=== PATIENT | female | born 1945 | race Two or more races ===

== ENCOUNTER 2024-10-20 17:36 | Emergency (ER) | payer OTHER, MEDICAID, SELFPAY ==
[2024-10-20 17:47] VITALS: BP 117/76; PULSE 91; RESP 19; TEMP 37.7; O2SAT 97; BMI 23.6
--- NOTE | 2024-10-20 17:49 | XR_ITS ---
Examination: PA lateral chest 2 views TECHNIQUE: Upright PA and lateral chest 2 views Exam date and time: October 20, 2024 at 1812 hours INDICATIONS: Coughing and fever beginning one week ago. FINDINGS: Normal heart size. Accentuation bronchovascular markings. No lobar pneumonia. No pulmonary edema. IMPRESSION: Bronchitis pattern
--- NOTE | 2024-10-20 17:50 | EDRME_ITS ---
Rapid Medical Screening Exam [facility] Arrival date/time: 10/20/24 17:36 78-year-old female with no known medical history presents to the emergency room with a chief complaint of cough, congestion, coughing up phlegm, sore throat, intermittent fevers x 1 day. I have greeted and performed a focused initial assessment of this patient. A comprehensive ED assessment and evaluation of the patient, analysis of all test results, and completion of the medical decision making process will be conducted by additional ED providers. Chief Complaint: Headache Vital signs: Vital Signs Temperature 99.8 F 10/20/24 17:47 Pulse Rate 91 10/20/24 17:47 Respiratory Rate 19 10/20/24 17:47 Blood Pressure 117/76 10/20/24 17:47 Pulse Oximetry (%) 97 10/20/24 17:47 Oxygen Delivery Method Room Air 10/20/24 17:47 Vital signs reviewed by provider: Yes
[2024-10-20 19:18] LABS: Strep A Rapid Negative (Negative)
[2024-10-20 20:59] VITALS: BP 124/68; PULSE 88; RESP 14; TEMP 37.7; O2SAT 97
--- NOTE | 2024-10-20 22:43 | PD.EDHA ---
ED Headache RME/HPI General Chief Complaint: Headache Stated Complaint: Ear pain, sore throat, weak, tired, STEWARD Time Seen by Provider: 10/20/24 21:20 Arrival date/time: 10/20/24 17:36 RME / HPI RME / HPI Narrative: 78-year-old female with no known medical history presents to the emergency room with a chief complaint of cough, congestion, coughing up phlegm, sore throat, intermittent fevers x 1 day. Denies any other complaints. No medication was taken prior to arrival. Related Data Home Medications ?Medication ?Instructions ?Recorded ?Confirmed gabapentin 100 mg capsule 100 mg PO BID #0 caps 01/05/15 12/04/21 ezetimibe 10 mg tablet (Zetia) 10 mg PO DAILY 12/21/18 12/04/21 loratadine 10 mg tablet 10 mg PO QAM 12/21/18 12/04/21 alendronate 35 mg tablet 35 mg PO QWEEK 01/28/21 12/04/21 clopidogrel 75 mg tablet 75 mg PO QDAY 01/28/21 12/04/21 docusate sodium 250 mg capsule 250 mg PO BID 01/28/21 12/04/21 duloxetine 20 mg capsule,delayed 20 mg PO QDAY 01/28/21 12/04/21 release fluticasone propionate 50 2 spray intranasal QAM 01/28/21 12/04/21 mcg/actuation nasal spray,suspension baclofen 10 mg tablet 10 mg PO HS 06/24/21 12/04/21 duloxetine 20 mg capsule,delayed 20 mg PO QDAY 12/04/21 12/04/21 release hydroxyzine HCl 10 mg tablet 10 mg PO Q8H 12/04/21 12/04/21 lidocaine 5 % topical patch 1 patch topical QDAY 12/04/21 12/04/21 linaclotide 145 mcg capsule 145 mcg PO QDAY 12/04/21 12/04/21 (Linzess) triamcinolone acetonide 0.1 % 1 applic topical BID 12/04/21 12/04/21 topical cream Previous Rx's ?Medication ?Instructions ?Recorded ciprofloxacin HCl 500 mg tablet 500 mg PO BID #20 tabs 12/10/21 furosemide 20 mg tablet (Lasix) 20 mg PO Q OTHER DAY #7 tabs 02/13/22 potassium chloride 20 mEq oral 20 meq PO QDAY #14 ea 02/13/22 packet ondansetron 4 mg disintegrating 4 mg PO TID PRN nausea and 04/10/22 tablet vomiting #14 tabs lactulose 10 gram/15 mL (15 mL) 10 g (15 mL) PO QDAY PRN 10/09/22 oral solution constipation #600 mL sulfamethoxazole 800 1 tab PO Q12H #10 tabs 10/31/22 mg-trimethoprim 160 mg tablet (Bactrim DS) azithromycin 500 mg tablet See Rx Instructions PO .COMPLEX #3 06/15/23 tabs famotidine 20 mg tablet (Pepcid) 20 mg PO BID #30 tabs 07/03/23 cefuroxime axetil 500 mg tablet 500 mg PO BID #14 tabs 12/22/23 acetaminophen 500 mg tablet 500 mg PO Q6H PRN pain #30 tabs 04/18/24 (Tylenol Extra Strength) famotidine 20 mg tablet (Pepcid) 20 mg PO QDAY #30 tabs 04/18/24 polyethylene glycol 3350 17 4 g PO QDAY #238 grams 04/18/24 gram/dose oral powder (GentleLax) ibuprofen 600 mg tablet 600 mg PO Q8H PRN fever or pain 10/20/24 #30 tabs nirmatrelvir 150 mg-ritonavir 100 See Rx Instructions PO .COMPLEX 10/20/24 mg tablets in a dose pack #20 tabs (Paxlovid) Allergies Allergy/AdvReac Type Severity Reaction Status Date / Time ampicillin Allergy Severe Diarrhea Verified 04/17/24 20:33 codeine Allergy Severe Abdominal Verified 04/17/24 20:33 Pain morphine Allergy Severe ER GIVEN Verified 04/17/24 20:33 09/11/08 22:45 -NO PROB. CONT MONITOR diazepam AdvReac Severe Vomiting Verified 04/17/24 20:33 hydrocodone AdvReac Severe ANXIETY Verified 04/17/24 20:33 MILK PRODUCTS Allergy Unknown Uncoded 04/17/24 20:33 Review of Systems Review of Systems Narrative Review of Systems: Review of system reviewed and within normal limits except mentioned in HPI ED Exam Narrative Physical exam: VITAL SIGNS: Reviewed. GENERAL APPEARANCE: Alert and interactive, follows commands, no acute distress, HEAD AND FACE: Non-traumatic. ENT: PERRL, pink conjunctivitis, eyelid no trauma, Mucous membrane moist. NECK: Supple, nontender, no nuchal rigidity. CHEST: No tenderness, no crepitus, no paradoxical movement, no retractions. LUNGS: Clear, well ventilated, symmetric, no rales, no wheezing, no ronchi, no stridor, good breath sounds bilaterally. HEART: Regular rate, regular rhythm, no murmur, no gallops. ABDOMEN: Soft, positive bowel sounds, nondistended, no guarding, nontender, no rebound, no masses, RECTAL: Deferred. GENITAL: Deferred. NEUROLOGICAL: Gross motor function intact sensory function intact, Appropriate for age. MUSCULOSKELETAL: low back nontender, full range of motion. EXTREMITIES: Nontender, full range of motion. SKIN: Color pink, dry, no rash, no lacerations, no abrasions, no contusions. LYMPHATICS: Deferred. Course Quality Measures none Orders Category Date Time Status Bedside COVID-19 Antigen Test NOW Care 10/20/24 17:49 Active Bedside Influenza A&B Antigen Test NOW Care 10/20/24 17:49 Completed XR chest 2V Stat Exams 10/20/24 17:49 Completed Strep A Rapid Stat Lab 10/20/24 18:00 Completed Vital Signs Vital signs: Vital Signs Temperature 99.8 F 10/20/24 17:47 Pulse Rate 91 10/20/24 17:47 Respiratory Rate 19 10/20/24 17:47 Blood Pressure 117/76 10/20/24 17:47 Pulse Oximetry (%) 97 10/20/24 17:47 Oxygen Delivery Method Room Air 10/20/24 17:47 Headache MDM Narrative MDM Narrative:: 78-year-old female with no known medical history presents to the emergency room with a chief complaint of cough, congestion, coughing up phlegm, sore throat, intermittent fevers x 1 day. Denies any other complaints. No medication was taken prior to arrival. Patient tested positive for COVID-19. Chest x-ray came back unremarkable except for bronchitis pattern. No pneumonia. The rest of the labs unremarkable. Results discussed with the patient. Patient data External records reviewed:: None Clinical information provided by:: patient Social determinants that could affect healthcare access:: none Patient has the following chronic illnesses:: None How is presenting disease/condition affected by chronic disease/condition?: exacerbated by Evaluation data The following diagnostics were reviewed and interpreted by me:: lab results Lab and/or radiology exams considered but not ordered:: None Interpretation Summary: None Medications / Prescriptions Medications or Prescriptions considered but not ordered:: None Medication administrations:: none Consultations Consultation(s) initiated? (list below): No Diagnosis Differential diagnosis headache: other (COVID-19, influenza) Most likely diagnosis given after review of the tests above:: COVID-19 Admission Indicated Admission indicated?: not indicated Admission Request Was there a request for admission?: No Disposition Plan Disposition Plan: Discharge Discharge Attestation Discharge Attestation: The patient was given an opportunity to ask questions and understood the discharge instructions. Discharge instructions specifically effects, indications for sooner follow up or return to the emergency department, and the expected course of current diagnosis. Patient condition: Stable Discharge Plan Plan Patient Disposition: HOME (Self Care) Disposition Comment: Stable Prescriptions/Referrals Prescriptions/Med Rec: New Paxlovid 150-100 mg tablets,dose pack See Rx Instructions .ROUTE .COMPLEX Qty: 20 0RF Rx Instructions: take ONE 150 mg tablet of nirmatrelvir with ONE 100 mg tablet of ritonavir twice daily for 5 days ibuprofen 600 mg tablet 600 mg PO Q8H PRN (Reason: fever or pain) Qty: 30 0RF No Action gabapentin 100 MG capsule 100 mg PO BID Qty: 0 clopidogrel 75 mg Tablet 75 mg PO QDAY duloxetine 20 mg Capsule,Delayed Release(Dr/Ec) 20 mg PO QDAY docusate sodium 250 mg Capsule 250 mg PO BID alendronate 35 mg tablet 35 mg PO QWEEK Patient Comments: TAKE 1 TABLET BY MOUTH ONCE A WEEK IN THE MORNING AT LEAST 30MIN BEFORE FIRST MEAL,DRINK OR MED Rx Instructions: wednesday fluticasone propionate 50 mcg/actuation spray,suspension 2 spray INTRANASAL QAM Patient Comments: SPRAY 2 SPRAYS INTO EACH NOSTRIL EVERY DAY triamcinolone acetonide 0.1 % cream 1 applic TOPICAL BID lidocaine 5 % adhesive patch,medicated 1 patch TOPICAL QDAY Patient Comments: APPLY 1 PATCH BY TOPICAL ROUTE ONCE DAILY (MAY WEAR UP TO 12HOURS.) hydroxyzine HCl 10 mg tablet 10 mg PO Q8H Patient Comments: TAKE 1 TABLET BY MOUTH EVERY 8 HOURS NEEDED FOR ITCHING duloxetine 20 mg capsule,delayed release(DR/EC) 20 mg PO QDAY Linzess 145 mcg capsule 145 mcg PO QDAY furosemide [Lasix] 20 mg tablet 20 mg PO Q OTHER DAY Qty: 7 0RF potassium chloride 20 mEq packet 20 meq PO QDAY Qty: 14 0RF ondansetron 4 mg tablet,disintegrating 4 mg PO TID PRN (Reason: nausea and vomiting) Qty: 14 0RF loratadine 10 mg Tablet 10 mg PO QAM ezetimibe [Zetia] 10 mg Tablet 10 mg PO DAILY baclofen 10 mg tablet 10 mg PO HS Patient Comments: TAKE 1 TABLET BY MOUTH EVERY DAY AT BEDTIME NEEDED FOR MUSCLE SPASMS ciprofloxacin HCl 500 mg tablet 500 mg PO BID Qty: 20 0RF lactulose 10 gram/15 mL (15 mL) solution 10 g PO QDAY PRN (Reason: constipation) Qty: 600 0RF azithromycin 500 mg tablet See Rx Instructions .ROUTE .COMPLEX Qty: 3 0RF Rx Instructions: For 500 mg dose pack: take 500 mg once daily for 3 days famotidine [Pepcid] 20 mg tablet 20 mg PO BID Qty: 30 0RF cefuroxime axetil 500 mg tablet 500 mg PO BID Qty: 14 0RF sulfamethoxazole-trimethoprim [Bactrim DS] 800-160 mg tablet 1 tab PO Q12H Qty: 10 0RF polyethylene glycol 3350 [GentleLax] 17 gram/dose powder 4 g PO QDAY Qty: 238 0RF famotidine [Pepcid] 20 mg tablet 20 mg PO QDAY Qty: 30 0RF acetaminophen [Tylenol Extra Strength] 500 mg tablet 500 mg PO Q6H PRN (Reason: pain) Qty: 30 0RF Referrals: Bong Batista MD [Primary Care Provider] - In 1 week Problem List Clinical Impression: COVID-19 Patient/Caregiver Discharge Instructions Discharge Activity: activity as tolerated Education Materials: 2019-nCoV Additional Instructions: Thank you for the opportunity for serving you today. You are stable for discharged . You are advised to: Follow-up with your PCP in 1 to 2 days Return to ED for worsening of symptoms Increase oral fluids Take medication as prescribed Print Language: Lao Stand Alone Forms: [employer] Award Info., Patient Portal Info Letter PA/BENEFITS PROCESSOR Supervising Physician DAJUAN/CARMEL Supervising Physician: MD Cornelius
== END 2024-10-20 22:56 | disposition home or self-care (01) ==
PROVIDERS: Nurse Practitioner Family; Emergency Provider Emergency Medicine; PCP Family Medicine
DX: U07.1 COVID-19 (principal)
CPT/HCPCS: 71046; 87400; 87651; 87811; 99283

== ENCOUNTER → 2024-10-20 | Outpatient (CLI) | payer OTHER, MEDICAID, SELFPAY ==
--- NOTE | 2024-10-20 08:30 | XR_ITS ---
Examination: Diagnostic digital mammography, bilateral Computer aided detection 3-D breast Tomosynthesis, bilateral Date and time of exam: October 20, 2024 0811 hours Compared to mammograms dating to September 28, 2018 INDICATIONS: History inconclusive mammogram Technique: Nonmagnified MLO, CC views of the breasts to been obtained, reconstructed from 3-D Tomosynthesis images. R2 computer aided detection program utilized for evaluation of suspicious masses and/or abnormal calcifications. 3-D Tomosynthesis images obtained. Findings: Scattered areas of fibroglandular density Benign calcifications No interval suspicious masses Impression: BI-RADS Category 2: Benign findings Recommend yearly follow-up mammography.
== END | disposition home or self-care (01) ==
LOC: CDIM 07:58
PROVIDERS: PCP Family Medicine; Referring Provider Family Medicine; Visit Provider Family Medicine
DX: R92.323 Mammographic fibroglandular density, bilateral breasts (principal); R92.1 Mammographic calcification found on diagnostic imaging of breast
CPT/HCPCS: 77062; 77066; G0279

== ENCOUNTER 2024-10-22 13:25 | Emergency (ER) | payer OTHER, MEDICAID, SELFPAY ==
[2024-10-22 13:37] VITALS: BP 108/61; PULSE 77; RESP 18; TEMP 36.7; O2SAT 97
[2024-10-22 13:52] VITALS: PULSE 77; RESP 17; O2SAT 97; BMI 24.2
[2024-10-22 14:05] VITALS: BP 118/62; PULSE 75; RESP 20; TEMP 37.1; O2SAT 98
--- NOTE | 2024-10-22 14:08 | XR_ITS ---
Examination:Right hip AP, lateral, AP pelvis 3 views Technique: Hip AP lateral, AP pelvis, 3 views Exam date and time:October 22, 2024 at 1443 hours INDICATIONS: Injury to the right hip today. Right hip pain. FINDINGS: No right hip fracture or dislocation Left hip bones of the pelvis intact IMPRESSION: No hip or pelvic fracture. If pain persists, recommend repeat AP pelvis in 1 day.
--- NOTE | 2024-10-22 14:08 | XR_ITS ---
Examination: Right femur 2 views TECHNIQUE: AP lateral right femur 2 views Examination time: October 22, 2024 at 1443 hours INDICATIONS: Injury to the femur today, femur pain. FINDINGS: No hip fracture or hip dislocation Shaft of the femur are intact IMPRESSION: No acute femur fracture
--- NOTE | 2024-10-22 14:08 | XR_ITS ---
Examination: Hand, right 3 views Technique: Hand AP, oblique, lateral 3 views Date and time of exam: October 22, 2024 at 1443 hours INDICATIONS: Injury to the hand yesterday with hand pain. FINDINGS: Significant osteopenia. No acute fracture. No dislocation. No foreign body. IMPRESSION: No acute fracture.
--- NOTE | 2024-10-22 17:13 | PD.EDFALL ---
ED Fall Injury RME/HPI General Chief Complaint: Fall Stated Complaint: FALL Time Seen by Provider: 10/22/24 13:56 Arrival date/time: 10/22/24 13:25 78-year-old female presents to the emergency department today with complaints of injury to the right upper arm, right hip right upper leg pain and right hand pain patient states she was walking the dog and tripped and fell patient reports no headache or dizziness no chest pain or shortness of breath no dizziness prior after the fall patient reports no head or neck injury Limitations: no limitations Related Data Home Medications ?Medication ?Instructions ?Recorded ?Confirmed gabapentin 100 mg capsule 100 mg PO BID #0 caps 01/05/15 12/04/21 ezetimibe 10 mg tablet (Zetia) 10 mg PO DAILY 12/21/18 12/04/21 loratadine 10 mg tablet 10 mg PO QAM 12/21/18 12/04/21 alendronate 35 mg tablet 35 mg PO QWEEK 01/28/21 12/04/21 clopidogrel 75 mg tablet 75 mg PO QDAY 01/28/21 12/04/21 docusate sodium 250 mg capsule 250 mg PO BID 01/28/21 12/04/21 duloxetine 20 mg capsule,delayed 20 mg PO QDAY 01/28/21 12/04/21 release fluticasone propionate 50 2 spray intranasal QAM 01/28/21 12/04/21 mcg/actuation nasal spray,suspension baclofen 10 mg tablet 10 mg PO HS 06/24/21 12/04/21 duloxetine 20 mg capsule,delayed 20 mg PO QDAY 12/04/21 12/04/21 release hydroxyzine HCl 10 mg tablet 10 mg PO Q8H 12/04/21 12/04/21 lidocaine 5 % topical patch 1 patch topical QDAY 12/04/21 12/04/21 linaclotide 145 mcg capsule 145 mcg PO QDAY 12/04/21 12/04/21 (Linzess) triamcinolone acetonide 0.1 % 1 applic topical BID 12/04/21 12/04/21 topical cream Previous Rx's ?Medication ?Instructions ?Recorded ciprofloxacin HCl 500 mg tablet 500 mg PO BID #20 tabs 12/10/21 furosemide 20 mg tablet (Lasix) 20 mg PO Q OTHER DAY #7 tabs 02/13/22 potassium chloride 20 mEq oral 20 meq PO QDAY #14 ea 02/13/22 packet ondansetron 4 mg disintegrating 4 mg PO TID PRN nausea and 04/10/22 tablet vomiting #14 tabs lactulose 10 gram/15 mL (15 mL) 10 g (15 mL) PO QDAY PRN 10/09/22 oral solution constipation #600 mL sulfamethoxazole 800 1 tab PO Q12H #10 tabs 10/31/22 mg-trimethoprim 160 mg tablet (Bactrim DS) azithromycin 500 mg tablet See Rx Instructions PO .COMPLEX #3 06/15/23 tabs famotidine 20 mg tablet (Pepcid) 20 mg PO BID #30 tabs 07/03/23 cefuroxime axetil 500 mg tablet 500 mg PO BID #14 tabs 12/22/23 acetaminophen 500 mg tablet 500 mg PO Q6H PRN pain #30 tabs 04/18/24 (Tylenol Extra Strength) famotidine 20 mg tablet (Pepcid) 20 mg PO QDAY #30 tabs 04/18/24 polyethylene glycol 3350 17 4 g PO QDAY #238 grams 04/18/24 gram/dose oral powder (GentleLax) ibuprofen 600 mg tablet 600 mg PO Q8H PRN fever or pain 10/20/24 #30 tabs nirmatrelvir 150 mg-ritonavir 100 See Rx Instructions PO .COMPLEX 10/20/24 mg tablets in a dose pack #20 tabs (Paxlovid) Allergies Allergy/AdvReac Type Severity Reaction Status Date / Time ampicillin Allergy Severe Diarrhea Verified 10/22/24 13:52 codeine Allergy Severe Abdominal Verified 10/22/24 13:52 Pain morphine Allergy Severe ER GIVEN Verified 10/22/24 13:52 09/11/08 22:45 -NO PROB. CONT MONITOR diazepam AdvReac Severe Vomiting Verified 10/22/24 13:52 hydrocodone AdvReac Severe ANXIETY Verified 10/22/24 13:52 MILK PRODUCTS Allergy Unknown Uncoded 10/22/24 13:52 Review of Systems Review of Systems Systems Reviewed: All systems reviewed, normal except as documented Constitutional Constitutional: Reports system reviewed and no additional complaints, except as documented, Denies fever(s) and Denies headache(s) Eyes Eyes: Reports system reviewed and no additional complaints, except as documented and Denies blurry vision ENT Ears, Nose, Mouth, and Throat: Reports system reviewed and no additional complaints, except as documented, Denies headache(s), Denies nasal congestion, Denies nasal discharge and Denies neck pain Cardiovascular Cardiovascular: Reports system reviewed and no additional complaints, except as documented, Denies chest pain and Denies dyspnea Respiratory Respiratory: Reports system reviewed and no additional complaints, except as documented, Denies chest congestion, Denies cough and Denies dyspnea Gastrointestinal Gastrointestinal: Reports system reviewed and no additional complaints, except as documented and Denies abdominal pain Musculoskeletal Musculoskeletal: Reports system reviewed and no additional complaints, except as documented, Reports arthralgias, Denies deformity, Denies joint swelling, Denies neck pain, Denies numbness, Denies stiffness and Denies tingling Integumentary/Breasts Skin/Breast: Reports system reviewed and no additional complaints, except as documented and Denies rash Neurologic Neurologic: Reports system reviewed and no additional complaints, except as documented, Reports as per HPI, Denies headache(s), Denies numbness and Denies tingling Past Medical History Past Medical History NEUROLOGIC: Negative Neurological Disorders ED Exam General Limitations: Present no limitations General appearance: Present alert and in no apparent distress Head Head exam: Present atraumatic, normocephalic and normal inspection Eye Eye exam: Present normal appearance, PERRL and EOMI ENT ENT exam: Present normal exam, normal oropharynx and mucous membranes moist Neck Neck exam: Present normal inspection, full ROM and trachea midline Chest Chest inspection: Present normal inspection and symmetric chest wall rise Respiratory Respiratory exam: Present normal lung sounds bilaterally Cardiovascular Cardiovascular exam: Present regular rate, normal rhythm and normal heart sounds Abdominal Exam Abdominal exam: Present soft and normal bowel sounds; Absent distention Extremities Exam Extremities exam: Present full ROM, tenderness and normal capillary refill; Absent pedal edema, joint swelling or calf tenderness Back Exam Back exam: Present normal inspection and full ROM; Absent tenderness Neurological Exam Neurological exam: Present alert, oriented X3, CN II-XII intact, normal gait and reflexes normal; Absent motor sensory deficit Psychiatric Psychiatric exam: Present normal affect and normal mood Skin Skin exam: Present warm, dry and other (Skin tear right upper arm) Course Quality Measures none Orders Category Date Time Status Dermabond Set Up NOW Care 10/22/24 18:38 Active Wound Care NOW Care 10/22/24 17:22 Completed XR femur RT 2V Stat Exams 10/22/24 14:08 Completed XR hand comp RT min 3V Stat Exams 10/22/24 14:08 Completed XR hip RT w pelvis 2-3V Stat Exams 10/22/24 14:08 Completed Tet,Diphth,Pertuss(Acell)-Tdap [Boostrix Vacc] Med 10/22/24 17:22 Discontinued 0.5 ml IMI .ONCE ONE Vital Signs Vital signs: Vital Signs Temperature 98.1 F 10/22/24 13:37 Pulse Rate 77 10/22/24 13:37 Respiratory Rate 18 10/22/24 13:37 Blood Pressure 108/61 10/22/24 13:37 Pulse Oximetry (%) 97 10/22/24 13:37 Oxygen Delivery Method Room Air 10/22/24 13:37 O2 saturation 97% room air wnl Fall MDM Narrative MDM Narrative:: 78-year-old female presents to the emergency department today with complaints of injury to the right upper arm, right hip right upper leg pain and right hand pain patient states she was walking the dog and tripped and fell patient reports no headache or dizziness no chest pain or shortness of breath no dizziness prior after the fall patient reports no head or neck injury On exam patient well-appearing patient does not appear ill or toxic Imaging of the right hip right femur and right hand obtained no acute fractures dislocations noted Patient noted to have a skin tear to the right upper arm Dermabond applied tetanus updated At time of reevaluation patient appears well patient GCS of 15 answers all questions appropriately reports no dizziness weakness chest pain or shortness of breath Patient discharged home in no distress to follow-up with primary care doctor in the next 24 to 48 hours and for any worsening symptoms to return to the ER immediately Patient data External records reviewed:: [facility] previous records Clinical information provided by:: patient Social determinants that could affect healthcare access:: none Patient has the following chronic illnesses:: See history How is presenting disease/condition affected by chronic disease/condition?: uneffected by Evaluation data The following diagnostics were reviewed and interpreted by me:: radiology exam(s) Lab and/or radiology exams considered but not ordered:: Radiology obtain Interpretation Summary: Reviewed by me Medications / Prescriptions Medications or Prescriptions considered but not ordered:: Given Medication administrations:: Medication Administration History Discontinued Medications Diphtheria/Tetanus/Acell Pertussis (Diphth,Pertuss(Acell),Tet Vac 0.5 Ml Vial) 0.5 ml IMi .ONCE ONE Stop: 10/22/24 17:23 Last Admin: 10/22/24 17:34 Dose: 0.5 ml Documented By: KF Given Consultations Consultation(s) initiated? (list below): No Diagnosis Fall Differential Diagnosis: other (Fall, laceration, abrasion, hip fracture, hip strain) Most likely diagnosis given after review of the tests above:: Contusion right hip Admission Indicated Admission indicated?: not indicated Admission Request Was there a request for admission?: No Disposition Plan Disposition Plan: Discharge Discharge Attestation Discharge Attestation: The patient and all family members were given an opportunity to ask questions and understood the discharge instructions. Discharge instructions specifically effects, indications for sooner follow up or return to the emergency department, and the expected course of current diagnosis. Patient condition: Stable Discharge Plan Plan Patient Disposition: HOME (Self Care) Disposition Comment: Stable Prescriptions/Referrals Prescriptions/Med Rec: No Action gabapentin 100 MG capsule 100 mg PO BID Qty: 0 clopidogrel 75 mg Tablet 75 mg PO QDAY duloxetine 20 mg Capsule,Delayed Release(Dr/Ec) 20 mg PO QDAY docusate sodium 250 mg Capsule 250 mg PO BID alendronate 35 mg tablet 35 mg PO QWEEK Patient Comments: TAKE 1 TABLET BY MOUTH ONCE A WEEK IN THE MORNING AT LEAST 30MIN BEFORE FIRST MEAL,DRINK OR MED Rx Instructions: wednesday fluticasone propionate 50 mcg/actuation spray,suspension 2 spray INTRANASAL QAM Patient Comments: SPRAY 2 SPRAYS INTO EACH NOSTRIL EVERY DAY triamcinolone acetonide 0.1 % cream 1 applic TOPICAL BID lidocaine 5 % adhesive patch,medicated 1 patch TOPICAL QDAY Patient Comments: APPLY 1 PATCH BY TOPICAL ROUTE ONCE DAILY (MAY WEAR UP TO 12HOURS.) hydroxyzine HCl 10 mg tablet 10 mg PO Q8H Patient Comments: TAKE 1 TABLET BY MOUTH EVERY 8 HOURS NEEDED FOR ITCHING duloxetine 20 mg capsule,delayed release(DR/EC) 20 mg PO QDAY Linzess 145 mcg capsule 145 mcg PO QDAY furosemide [Lasix] 20 mg tablet 20 mg PO Q OTHER DAY Qty: 7 0RF potassium chloride 20 mEq packet 20 meq PO QDAY Qty: 14 0RF ondansetron 4 mg tablet,disintegrating 4 mg PO TID PRN (Reason: nausea and vomiting) Qty: 14 0RF loratadine 10 mg Tablet 10 mg PO QAM ezetimibe [Zetia] 10 mg Tablet 10 mg PO DAILY baclofen 10 mg tablet 10 mg PO HS Patient Comments: TAKE 1 TABLET BY MOUTH EVERY DAY AT BEDTIME NEEDED FOR MUSCLE SPASMS ciprofloxacin HCl 500 mg tablet 500 mg PO BID Qty: 20 0RF lactulose 10 gram/15 mL (15 mL) solution 10 g PO QDAY PRN (Reason: constipation) Qty: 600 0RF azithromycin 500 mg tablet See Rx Instructions .ROUTE .COMPLEX Qty: 3 0RF Rx Instructions: For 500 mg dose pack: take 500 mg once daily for 3 days famotidine [Pepcid] 20 mg tablet 20 mg PO BID Qty: 30 0RF cefuroxime axetil 500 mg tablet 500 mg PO BID Qty: 14 0RF Paxlovid 150-100 mg tablets,dose pack See Rx Instructions .ROUTE .COMPLEX Qty: 20 0RF Rx Instructions: take ONE 150 mg tablet of nirmatrelvir with ONE 100 mg tablet of ritonavir twice daily for 5 days ibuprofen 600 mg tablet 600 mg PO Q8H PRN (Reason: fever or pain) Qty: 30 0RF sulfamethoxazole-trimethoprim [Bactrim DS] 800-160 mg tablet 1 tab PO Q12H Qty: 10 0RF polyethylene glycol 3350 [GentleLax] 17 gram/dose powder 4 g PO QDAY Qty: 238 0RF famotidine [Pepcid] 20 mg tablet 20 mg PO QDAY Qty: 30 0RF acetaminophen [Tylenol Extra Strength] 500 mg tablet 500 mg PO Q6H PRN (Reason: pain) Qty: 30 0RF Referrals: Bong Batista MD [Primary Care Provider] - In 1 week Problem List Clinical Impression: Contusion of hip, right, Hand pain, right Patient/Caregiver Discharge Instructions Education Materials: ED Hip Contusion Additional Instructions: Please follow up with your primary care doctor in the next 24-48hrs for any worsening symptoms return here immediately Print Language: Jordanian Stand Alone Forms: Evon Award Info., Patient Portal Info Letter PA/VICE PRESIDENT OF SOFTWARE DEVELOPMENT Supervising Physician PA/VICE PRESIDENT OF SOFTWARE DEVELOPMENT Supervising Physician: Dr Gonzales
[2024-10-22] MEDS: DIPHTH,PERTUSS(ACELL),TET VAC 0.5 ML VIAL IMi (17:34)
== END 2024-10-22 18:11 | disposition home or self-care (01) ==
PROVIDERS: Emergency Provider Emergency Medicine; PCP Family Medicine
DX: S70.01XA Contusion of right hip, initial encounter (principal); S60.221A Contusion of right hand, initial encounter; W01.0XXA Fall on same level from slipping, tripping and stumbling without subsequent striking against object, initial encounter; Y93.K1 Activity, walking an animal; Z23 Encounter for immunization
CPT/HCPCS: 73130; 73502; 73552; 90471; 90715; 99283

== ENCOUNTER → 2024-10-31 | Outpatient (CLI) | payer OTHER, MEDICAID, SELFPAY ==
--- NOTE | 2024-10-31 09:56 | XR_ITS ---
Examination: Knee, right , 3 views Technique: Knee AP, lateral, oblique 3 views Date and time of exam: October 31, 2024 1032 hours INDICATIONS: Patient fell one week ago with injury to the knee, knee pain. FINDINGS: Prominent osteopenia No acute fracture Small knee effusion Mild narrowing medial joint space IMPRESSION: No acute fracture Repeat this study short-term as clinically warranted, given the significant osteopenia
--- NOTE | 2024-10-31 09:56 | XR_ITS ---
Examination: Abdomen AP single view Technique: AP portable supine abdomen, single view Exam date and time: October 31, 2024 1032 hours INDICATIONS: Onset abdominal pain today. FINDINGS: Large amounts of stool throughout the colon No obstruction No free air Surgical clips upper right abdomen IMPRESSION: Large amounts of stool throughout the colon
== END | disposition home or self-care (01) ==
PROVIDERS: Referring Provider Family Medicine; Visit Provider Family Medicine
DX: M25.561 Pain in right knee (principal); K59.00 Constipation, unspecified
CPT/HCPCS: 73562; 74018

== ENCOUNTER 2024-11-08 22:11 | Emergency (ER) | payer OTHER, MEDICAID, SELFPAY ==
[2024-11-08 22:23] VITALS: BP 97/60; PULSE 85; RESP 16; TEMP 37.1; O2SAT 97
--- NOTE | 2024-11-08 22:29 | XR_ITS ---
EXAMINATION: Ankle, right 3 views . Technique: Ankle AP, oblique, lateral 3 views Date and time of exam: November 08, 2024 at 10:37 PM Indications: Patient fell 2 weeks ago with injury to the ankle, ankle pain. Findings: Prominent osteopenia No acute fracture No ankle dislocation Impression: No acute fracture
--- NOTE | 2024-11-08 22:29 | XR_ITS ---
Examination: Foot, right, 3 views Technique: AP, oblique, lateral views foot, 3 views Date and time of exam: November 08, 2024 1034 hrs. Indications: Patient fell 2 weeks ago with injury to foot, foot pain. Findings: Severe osteopenia No acute fracture Soft tissue vascular calcification Edema dorsum of the foot Impression: Severe osteopenia No acute fracture
--- NOTE | 2024-11-08 22:29 | XR_ITS ---
Examination: Tibia-Fibula, right , 2 views Technique: Tibia-fibula AP lateral 2 views Date and time of exam: November 08, 2024 1034 hrs. Indications: Patient fell 2 weeks ago with injury to the lower leg, lower leg pain. Findings: Severe osteopenia No acute fracture No dislocation Impression: No acute fracture
--- NOTE | 2024-11-08 22:29 | XR_ITS ---
Examination: CT right knee, without contrast. 2-D sagittal reconstructions. 2-D coronal reconstructions. 3-D reconstructions. Date and time of exam:November 08, 2024 1054 hrs. Indications: Patient fell 2 weeks ago with injury to the knee, knee pain CTDI: vol (mGy):7 DLP: (mGycm):205 Technique: Multiple 1.25 mm axial sections of the right knee have been obtained. 2-D sagittal and coronal reconstructions have been obtained. 3-D reconstructions have been obtained. Low dose protocols were performed. One or more of the following dose reduction techniques were used; automated exposure control, adjustment of the mA and/or KV according to patient size, use of iterative reconstruction technique. Findings: Severe osteopenia Distal femur including femoral condyles intact Patella intact with no patellar dislocation Tibial plateau proximal tibia fibular head and neck intact No opaque foreign body Small knee effusion Impression: Severe osteopenia No acute fracture Given the severe osteopenia, suggest follow-up plain films of the knee in one to 2 days as clinically warranted
--- NOTE | 2024-11-08 22:29 | XR_ITS ---
Examination: CT right hip pelvis, without contrast. 2-D sagittal reconstructions. 2-D coronal reconstructions. 3-D reconstructions. Date and time of exam:November 08, 2024 10:57 PM Indications: Patient fell today with injury to the right hip, right hip pain CTDI: vol (mGy):4.87 DLP: (mGycm):187 Technique: Multiple 1.25 mm axial sections of the pelvis right hip have been obtained. 2-D sagittal and coronal reconstructions have been obtained. 3-D reconstructions have been obtained. Low dose protocols were performed. One or more of the following dose reduction techniques were used; automated exposure control, adjustment of the mA and/or KV according to patient size, use of iterative reconstruction technique. Findings: Severe osteopenia Sacral segments intact Iliac bones, acetabular regions anterior rami and hips appear intact No pelvic hematoma Urinary bladder intact Mild soft tissue contusion and subcutaneous fatty tissue lateral to the right hip Impression: No acute hip or pelvic fracture
[2024-11-08 22:33] VITALS: BMI 24.2
--- NOTE | 2024-11-08 22:36 | PD.EDLOWEX ---
Lower Extremity Injury RME/HPI General Chief Complaint: Extremity Injury, Lower Stated Complaint: Fell on 10/22, still in a lot of pain Time Seen by Provider: 11/08/24 22:28 Arrival date/time: 11/08/24 22:11 79F with history of CAD, HTN, and DM presents to ED with 2 weeks of RLE pain and bruising after fall 2 weeks ago. Patient had initial R hip XR, but no other imaging of RLE. Limitations: no limitations Related Data Home Medications ?Medication ?Instructions ?Recorded ?Confirmed gabapentin 100 mg capsule 100 mg PO BID #0 caps 01/05/15 12/04/21 ezetimibe 10 mg tablet (Zetia) 10 mg PO DAILY 12/21/18 12/04/21 loratadine 10 mg tablet 10 mg PO QAM 12/21/18 12/04/21 alendronate 35 mg tablet 35 mg PO QWEEK 01/28/21 12/04/21 clopidogrel 75 mg tablet 75 mg PO QDAY 01/28/21 12/04/21 docusate sodium 250 mg capsule 250 mg PO BID 01/28/21 12/04/21 duloxetine 20 mg capsule,delayed 20 mg PO QDAY 01/28/21 12/04/21 release fluticasone propionate 50 2 spray intranasal QAM 01/28/21 12/04/21 mcg/actuation nasal spray,suspension baclofen 10 mg tablet 10 mg PO HS 06/24/21 12/04/21 duloxetine 20 mg capsule,delayed 20 mg PO QDAY 12/04/21 12/04/21 release hydroxyzine HCl 10 mg tablet 10 mg PO Q8H 12/04/21 12/04/21 lidocaine 5 % topical patch 1 patch topical QDAY 12/04/21 12/04/21 linaclotide 145 mcg capsule 145 mcg PO QDAY 12/04/21 12/04/21 (Linzess) triamcinolone acetonide 0.1 % 1 applic topical BID 12/04/21 12/04/21 topical cream Previous Rx's ?Medication ?Instructions ?Recorded ciprofloxacin HCl 500 mg tablet 500 mg PO BID #20 tabs 12/10/21 furosemide 20 mg tablet (Lasix) 20 mg PO Q OTHER DAY #7 tabs 02/13/22 potassium chloride 20 mEq oral 20 meq PO QDAY #14 ea 02/13/22 packet ondansetron 4 mg disintegrating 4 mg PO TID PRN nausea and 04/10/22 tablet vomiting #14 tabs lactulose 10 gram/15 mL (15 mL) 10 g (15 mL) PO QDAY PRN 10/09/22 oral solution constipation #600 mL sulfamethoxazole 800 1 tab PO Q12H #10 tabs 10/31/22 mg-trimethoprim 160 mg tablet (Bactrim DS) azithromycin 500 mg tablet See Rx Instructions PO .COMPLEX #3 06/15/23 tabs famotidine 20 mg tablet (Pepcid) 20 mg PO BID #30 tabs 07/03/23 cefuroxime axetil 500 mg tablet 500 mg PO BID #14 tabs 12/22/23 acetaminophen 500 mg tablet 500 mg PO Q6H PRN pain #30 tabs 04/18/24 (Tylenol Extra Strength) famotidine 20 mg tablet (Pepcid) 20 mg PO QDAY #30 tabs 04/18/24 polyethylene glycol 3350 17 4 g PO QDAY #238 grams 04/18/24 gram/dose oral powder (GentleLax) ibuprofen 600 mg tablet 600 mg PO Q8H PRN fever or pain 10/20/24 #30 tabs nirmatrelvir 150 mg-ritonavir 100 See Rx Instructions PO .COMPLEX 10/20/24 mg tablets in a dose pack #20 tabs (Paxlovid) Allergies Allergy/AdvReac Type Severity Reaction Status Date / Time ampicillin Allergy Severe Diarrhea Verified 10/22/24 13:52 codeine Allergy Severe Abdominal Verified 10/22/24 13:52 Pain morphine Allergy Severe ER GIVEN Verified 10/22/24 13:52 09/11/08 22:45 -NO PROB. CONT MONITOR diazepam AdvReac Severe Vomiting Verified 10/22/24 13:52 hydrocodone AdvReac Severe ANXIETY Verified 10/22/24 13:52 MILK PRODUCTS Allergy Unknown Uncoded 10/22/24 13:52 Review of Systems Review of Systems Systems Reviewed: All systems reviewed, normal except as documented Constitutional Constitutional: Reports system reviewed and no additional complaints, except as documented, Denies fever(s) and Denies headache(s) ENT Ears, Nose, Mouth, and Throat: Denies disequilibrium and Denies headache(s) Cardiovascular Cardiovascular: Reports system reviewed and no additional complaints, except as documented, Denies chest pain and Denies dyspnea Respiratory Respiratory: Reports system reviewed and no additional complaints, except as documented, Denies cough and Denies dyspnea Gastrointestinal Gastrointestinal: Reports system reviewed and no additional complaints, except as documented, Denies abdominal pain, Denies nausea and Denies vomiting Musculoskeletal Musculoskeletal: Reports as per HPI and Reports arthralgias Neurologic Neurologic: Reports system reviewed and no additional complaints, except as documented, Denies confusion, Denies disequilibrium and Denies headache(s) Psychiatric Psychiatric: Denies confusion Past Medical History Past Medical History NEUROLOGIC: Negative Neurological Disorders or Seizures CARDIAC: Positive Cardiac Disorders, Coronary Artery Disease, Peripheral Vascular Disease, Hypercholesterolemia, Hypertension and Hypotension; Negative Congestive Heart Failure RESPIRATORY: Positive Bronchitis; Negative Chronic Obstructive Pulmonary Disease (COPD) or Asthma GASTROINTESTINAL: Positive Gastrointestinal Disorders, Pancreatitis, Gall Bladder Disease, Colitis, Diverticulitis, Hiatal Hernia, Hemorrhoids and Gastroesophageal Reflux Disease GENITOURINARY: Negative Genitourinary Disorders or Renal Disease MUSCULOSKELETAL: Positive Musculoskeletal Disorders, Myasthenia Gravis, Arthritis and Osteoporosis ENT: Positive Cataracts and Glaucoma ENDOCRINE: Positive Endocrine Disorders and Diabetes Mellitus Type 2; Negative Diabetes Mellitus Type 1 HEMATOLOGIC: Negative Blood Disorders or Sickle Cell Disease PSYCHO/SOCIAL: Positive Depression and Anxiety OTHER HISTORY: Positive Hospitalization, Autoimmune Disease, Falls, Blood Transfusions, Chicken Pox, Measles and Mumps; Negative Blood Transfusion Reaction, Anesthesia Reactions or Cancer Family History FAMILY HISTORY: Positive Family Cardiac Disorders, Family Cancer and Family Surgery; Negative Family Psychiatric Problems, Family Respiratory Disorders, Family Gastrointestinal Problems or Family Anesthesia Reaction Surgical History SURGICAL: Positive Cardiac Surgery, Coronary Stent, Angiogram, Tonsillectomy, Abdominal Surgery and Hysterectomy Social History SMOKING STATUS: Never smoker SUBSTANCE USE: does not use ED Exam General Limitations: Present no limitations General appearance: Present alert and in no apparent distress Head Head exam: Present atraumatic Eye Eye exam: Present normal appearance, PERRL and EOMI ENT ENT exam: Present normal exam, normal oropharynx and mucous membranes moist Neck Neck exam: Present normal inspection, full ROM and trachea midline Chest Chest inspection: Present normal inspection and symmetric chest wall rise Respiratory Respiratory exam: Present normal lung sounds bilaterally Cardiovascular Cardiovascular exam: Present regular rate, normal rhythm and normal heart sounds Abdominal Exam Abdominal exam: Present soft and normal bowel sounds Expanded Lower Extremity Exam Lower leg exam: Present tenderness (R), swelling and ecchymosis Ankle exam: Present tenderness, swelling and ecchymosis Foot/toe exam: Present tenderness, swelling and ecchymosis Back Exam Back exam: Present normal inspection and full ROM Neurological Exam Neurological exam: Present alert, oriented X3 and CN II-XII intact Psychiatric Psychiatric exam: Present normal affect and normal mood Skin Skin exam: Present warm, dry, intact and normal color Course Quality Measures none Orders Category Date Time Status CT hip RT wo con Stat Exams 11/08/24 22:[address] knee RT wo con Stat Exams 11/08/24 22:29 Completed US venous doppler LE RT Stat Exams 11/09/24 00:00 Taken XR ankle comp RT min 3V Stat Exams 11/08/24 22:29 Completed XR foot comp RT min 3V Stat Exams 11/08/24 22:29 Completed XR tibia fibula RT 2V Stat Exams 11/08/24 22:29 Completed Acetaminophen Tab [Tylenol ES Tab] Med 11/09/24 00:29 Discontinued 500 mg PO X1 ONE HYDROcodone*/APAP 5/325 [[place] 5/325] Med 11/08/24 22:32 Discontinued 1 tab PO X1 ONE Vital Signs Vital signs: Vital Signs Temperature 98.7 F 11/08/24 22:23 Pulse Rate 85 11/08/24 22:23 Respiratory Rate 16 11/08/24 22:23 Blood Pressure 97/60 11/08/24 22:23 Pulse Oximetry (%) 97 11/08/24 22:23 Oxygen Delivery Method Room Air 11/08/24 22:23 O2 at 97% on RA and WNLs Extremity Injury, Lower MDM Narrative MDM Narrative:: 79F with history of CAD, HTN, and DM presents to ED with 2 weeks of RLE pain and bruising after fall 2 weeks ago. Patient had initial R hip XR, but no other imaging of RLE. Physical exam reveals RLE bruising, tenderness, and swelling. Patient is afebrile, calm, and alert. XR and CT no acute abnormalities. US no DVT. Meds and auto [employer] travel counselor given. Patient data External records reviewed:: [facility] previous records Clinical information provided by:: patient Social determinants that could affect healthcare access:: none Patient has the following chronic illnesses:: CAD, HTN, and DM How is presenting disease/condition affected by chronic disease/condition?: exacerbated by Evaluation data The following diagnostics were reviewed and interpreted by me:: radiology exam(s) Lab and/or radiology exams considered but not ordered:: ordered Interpretation Summary: above Medications / Prescriptions Medications or Prescriptions considered but not ordered:: ordered Medication administrations:: Medication Administration History Discontinued Medications Acetaminophen (Acetaminophen 500 Mg Tablet) 500 mg PO X1 ONE Stop: 11/09/24 00:30 Last Admin: 11/09/24 00:45 Dose: 500 mg Documented By: CAMMY Hydrocodone Bitart/Acetaminophen (Hydrocodone/Apap 5/325 Tablet) 1 tab PO X1 ONE Stop: 11/08/24 22:33 Last Admin: 11/08/24 22:49 Dose: Not Given Documented By: OA Non-Admin Reason: Discontinued above Consultations Consultation(s) initiated? (list below): No Diagnosis Extremity Injury, Lower Differential Diagnosis: ankle sprain and strain, acute internal derangement of knee, fracture of femur, fracture of hip, puncture wound of foot, fracture of toe, ankle fracture and other (soft tissue contusion) Most likely diagnosis given after review of the tests above:: soft tissue contusion Admission Indicated Admission indicated?: not indicated Admission Request Was there a request for admission?: No Disposition Plan Disposition Plan: Discharge Discharge Attestation Discharge Attestation: The patient and all family members were given an opportunity to ask questions and understood the discharge instructions. Discharge instructions specifically effects, indications for sooner follow up or return to the emergency department, and the expected course of current diagnosis. Patient condition: Stable Discharge Plan Plan Patient Disposition: HOME (Self Care) Disposition Comment: Stable Prescriptions/Referrals Prescriptions/Med Rec: No Action gabapentin 100 MG capsule 100 mg PO BID Qty: 0 clopidogrel 75 mg Tablet 75 mg PO QDAY duloxetine 20 mg Capsule,Delayed Release(Dr/Ec) 20 mg PO QDAY docusate sodium 250 mg Capsule 250 mg PO BID alendronate 35 mg tablet 35 mg PO QWEEK Patient Comments: TAKE 1 TABLET BY MOUTH ONCE A WEEK IN THE MORNING AT LEAST 30MIN BEFORE FIRST MEAL,DRINK OR MED Rx Instructions: wednesday fluticasone propionate 50 mcg/actuation spray,suspension 2 spray INTRANASAL QAM Patient Comments: SPRAY 2 SPRAYS INTO EACH NOSTRIL EVERY DAY triamcinolone acetonide 0.1 % cream 1 applic TOPICAL BID lidocaine 5 % adhesive patch,medicated 1 patch TOPICAL QDAY Patient Comments: APPLY 1 PATCH BY TOPICAL ROUTE ONCE DAILY (MAY WEAR UP TO 12HOURS.) hydroxyzine HCl 10 mg tablet 10 mg PO Q8H Patient Comments: TAKE 1 TABLET BY MOUTH EVERY 8 HOURS NEEDED FOR ITCHING duloxetine 20 mg capsule,delayed release(DR/EC) 20 mg PO QDAY Linzess 145 mcg capsule 145 mcg PO QDAY furosemide [Lasix] 20 mg tablet 20 mg PO Q OTHER DAY Qty: 7 0RF potassium chloride 20 mEq packet 20 meq PO QDAY Qty: 14 0RF ondansetron 4 mg tablet,disintegrating 4 mg PO TID PRN (Reason: nausea and vomiting) Qty: 14 0RF loratadine 10 mg Tablet 10 mg PO QAM ezetimibe [Zetia] 10 mg Tablet 10 mg PO DAILY baclofen 10 mg tablet 10 mg PO HS Patient Comments: TAKE 1 TABLET BY MOUTH EVERY DAY AT BEDTIME NEEDED FOR MUSCLE SPASMS ciprofloxacin HCl 500 mg tablet 500 mg PO BID Qty: 20 0RF lactulose 10 gram/15 mL (15 mL) solution 10 g PO QDAY PRN (Reason: constipation) Qty: 600 0RF azithromycin 500 mg tablet See Rx Instructions .ROUTE .COMPLEX Qty: 3 0RF Rx Instructions: For 500 mg dose pack: take 500 mg once daily for 3 days famotidine [Pepcid] 20 mg tablet 20 mg PO BID Qty: 30 0RF cefuroxime axetil 500 mg tablet 500 mg PO BID Qty: 14 0RF Paxlovid 150-100 mg tablets,dose pack See Rx Instructions .ROUTE .COMPLEX Qty: 20 0RF Rx Instructions: take ONE 150 mg tablet of nirmatrelvir with ONE 100 mg tablet of ritonavir twice daily for 5 days ibuprofen 600 mg tablet 600 mg PO Q8H PRN (Reason: fever or pain) Qty: 30 0RF sulfamethoxazole-trimethoprim [Bactrim DS] 800-160 mg tablet 1 tab PO Q12H Qty: 10 0RF polyethylene glycol 3350 [GentleLax] 17 gram/dose powder 4 g PO QDAY Qty: 238 0RF famotidine [Pepcid] 20 mg tablet 20 mg PO QDAY Qty: 30 0RF acetaminophen [Tylenol Extra Strength] 500 mg tablet 500 mg PO Q6H PRN (Reason: pain) Qty: 30 0RF Referrals: Bong Batista MD [Primary Care Provider] - In 1 week Problem List Clinical Impression: Contusion of soft tissue Patient/Caregiver Discharge Instructions Additional Instructions: Please follow-up with PCP within 24-48 hours and return immediately if symptoms worsen. If problem persists, recommend outpatient PT and/or MRI follow-up. In the meantime, rest, use ice/heat, and/or compression. Print Language: Mohawk Stand Alone Forms: Patient Portal Info Letter PA/LINING SEWER Supervising Physician PA/LINING SEWER Supervising Physician: Dr. Shields
--- NOTE | 2024-11-09 | XR_ITS ---
Examination: Duplex scan of the lower extremity, unilateral right complete Date and time of exam: November 09, 2024 0006 hrs. Indications: Patient fell October 22, 2024 with injury to the neck, followed by left leg pain Technique: Duplex scan of the extremity veins using B-mode/grayscale imaging and Doppler spectral analysis and color flow Attention is directed to internal echogenicity, compression and augmentation involving these veins, color flow assessment, spectral analysis Findings: Major deep venous structures in the extremity demonstrate normal course and caliber. There is no evidence of deep vein thrombosis. Normal color flow and spectral analysis Impression: Negative for DVT..
--- NOTE | 2024-11-09 00:34 | PRELIM_ITS ---
Right lower extremity venous Doppler ultrasound with wave Doppler spectral analysis. November 09, 2024 0006 hours Clinical history: r/o DVT Comparison: None. Findings: Ochoa scale, color flow and spectral Doppler evaluation of the right lower extremity deep veins were performed. The common femoral, superficial femoral and popliteal veins are patent and compressible. Normal respiratory variation is noted. There is no evidence of occlusive or nonocclusive thrombus. The great saphenous vein is patent and compressible at the level of the saphenofemoral junction. Impression: No sonographic evidence of deep venous thrombosis in the right lower extremity. Report Electronically Signed By: Andrew Willis 11/09/2024 12:33:20 AM [EST]
[2024-11-09] MEDS: ACETAMINOPHEN 500 MG TABLET PO (00:45)
== END 2024-11-09 01:26 | disposition home or self-care (01) ==
PROVIDERS: Emergency Provider Emergency Medicine; PCP Family Medicine
DX: S80.11XA Contusion of right lower leg, initial encounter (principal); S90.01XA Contusion of right ankle, initial encounter; S90.31XA Contusion of right foot, initial encounter; R22.41 Localized swelling, mass and lump, right lower limb; I25.10 Atherosclerotic heart disease of native coronary artery without angina pectoris; E11.51 Type 2 diabetes mellitus with diabetic peripheral angiopathy without gangrene; I10 Essential (primary) hypertension; Z95.5 Presence of coronary angioplasty implant and graft; W19.XXXA Unspecified fall, initial encounter; Z88.5 Allergy status to narcotic agent
CPT/HCPCS: 73590; 73610; 73630; 73700; 93971; 99284; A9270

== ENCOUNTER 2024-11-27 18:12 | Emergency (ER) | payer OTHER, MEDICAID, SELFPAY ==
[2024-11-27 18:13] VITALS: BMI 24.2
--- NOTE | 2024-11-27 19:57 | XR_ITS ---
Examination: CT brain head without contrast. 2-D sagittal coronal reconstructions Date and time of exam:November 27, 2024 2158 hrs. Indications: Patient fell today with injury to the head, head pain CTDI: vol (mGy):49.6 DLP: (mGycm):955 Technique: Multiple CT axial sections of the brain have been obtained, 5 mm slice thickness. Contrast has not been administered. 2-D sagittal, coronal reconstructions have been obtained Low dose protocols were performed. One or more of the following dose reduction techniques were used; automated exposure control, adjustment of the mA and/or KV according to patient size, use of iterative reconstruction technique. Findings: No significant ventricular enlargement. Intra-axial or extra-axial hemorrhage density is not seen. No mass effect or midline shift Basal cisterns are not remarkable. Fourth ventricle is midline. Cranial vault intact. Impression: Negative for acute hemorrhage, mass effect or midline shift
--- NOTE | 2024-11-27 19:57 | XR_ITS ---
Examination: Shoulder,left, 3 views Technique: Shoulder AP internal rotation, AP external rotation, Y view shoulder, 3 views Exam date and time :November 27, 2024 at 1959 hrs. Indications: Patient fell today with injury to the shoulder, shoulder pain Findings: No shoulder fracture or dislocation No foreign body Impression: No shoulder fracture or dislocation
--- NOTE | 2024-11-27 19:57 | XR_ITS ---
Examination: CT cervical spine without contrast 2-D sagittal reconstructions 2-D coronal reconstructions 3-D reconstructions. Exam date and time:November 27, 2024 at 2155 hrs. Indications: Injury to the neck today, neck pain CTDI:vol (mGy) 7.60 DLP: (mGycm) 148 Technique: Multiple 2 mm axial sections of the cervical spine have been obtained. The coronal and sagittal reconstructions have been obtained. 3-D reconstructions have been obtained. Low dose protocols were performed. One or more of the following dose reduction techniques were used; automated exposure control, adjustment of the mA and/or KV according to patient size, use of iterative reconstruction technique. Findings: Axial sections demonstrate intact base of the skull. C1 exhibit satisfactory relationship to the odontoid. No acute cervical vertebral body fracture seen. Alignment posterior spinous processes satisfactory. Impression: No acute cervical fracture.
--- NOTE | 2024-11-27 19:57 | XR_ITS ---
Examination: Wrist, left 3 views Technique: Wrist AP, oblique, lateral 3 views Date and time of exam: November 27, 2024 1929 hrs. Indications: Patient fell today with injury to the wrist, wrist pain Findings: No acute fracture Prominent osteopenia No dislocation Impression: No acute fracture
--- NOTE | 2024-11-27 19:57 | EKG_ITS ---
[facility] Test Date: 2024-11-27 Pat Name: KEVIN SCHUMACHER Department: Room: - Gender: Female Script Writer: : 1945 Requested By: Alin Holt Order Number: [id number] Reading MD: Alin Holt Measurements Intervals [place] Rate: 78 P: 84 NE: 148 QRS: -20 QRSD: 77 T: 7 QT: 342 QTc: 390 Interpretive Statements SINUS RHYTHM LOW QRS VOLTAGE IN PRECORDIAL LEADS [QRS DEFLECTION < 1.0 mV IN CHEST LEADS] Compared to ECG 04/17/2024 21:06:48 Myocardial infarct finding no longer present /store/S0/[id number]/ecg/[id number].pdf
[2024-11-27 19:58] VITALS: BP 102/65; PULSE 91; RESP 16; TEMP 37.1; O2SAT 99
--- NOTE | 2024-11-27 19:59 | PD.EDRME ---
Rapid Medical Screening Exam RME Arrival date/time: 11/27/24 18:12 79 yo f present to Ed for c/o of GLF head, shoulder, hip injury today I have greeted and performed a focused initial assessment of this patient. A comprehensive ED assessment and evaluation of the patient, analysis of all test results, and completion of the medical decision making process will be conducted by additional ED providers. Chief Complaint: Extremity Injury, Lower Time Seen by Provider: 11/27/24 19:30 Vital signs: Vital Signs Temperature 98.7 F 11/27/24 19:58 Pulse Rate 91 11/27/24 19:58 Respiratory Rate 16 11/27/24 19:58 Blood Pressure 102/65 11/27/24 19:58 Pulse Oximetry (%) 99 11/27/24 19:58 Oxygen Delivery Method Room Air 11/27/24 19:58
--- NOTE | 2024-11-27 20:02 | XR_ITS ---
Examination: CT chest, without intravenous contrast. CT abdomen, without intravenous contrast. CT pelvis, without intravenous contrast. 2-D sagittal and coronal reconstructions. 3-D reconstructions. Date and time of exam:November 27, 2024 1001 hrs. Indications: Patient fell today with injury to the chest and abdomen, chest pain abdomen pain right hip pain CTDI vol (mgy) 6.25 DLP (MGycm)387 Technique: Multiple CT images, 3.0 mm slice thickness, obtained chest, abdomen, pelvis, with the high-resolution 64 slice scanner.. Sagittal and coronal 2-D reconstructions are obtained. 3-D reconstructions Low dose protocols were performed. One or more of the following dose reduction techniques were used; automated exposure control, adjustment of the mA and/or KV according to patient size, use of iterative reconstruction technique. Findings: Thoracic aorta pulmonary arteries intact No hemopericardium No pneumothorax pulmonary contusion or hemothorax The manubrium the body of the sternum appear intact No acute displaced rib fractures No thoracic or lumbar vertebral body compression fracture Retrocardiac gastric hernia No liver splenic or renal laceration Absent gallbladder Abdominal aorta intact No free blood in the abdomen or pelvis Negative for pneumoperitoneum Urinary bladder intact Hips bones of the pelvis intact Impression: Thoracic aorta pulmonary arteries intact No hemopericardium pneumothorax pulmonary contusion or hemothorax No abdominal parenchymal laceration Abdominal aorta intact No free blood in the abdomen Hips bones of the pelvis and remaining osseous structures appear intact
[2024-11-27 20:54] LABS: Basophils % (Auto) 0 % (0-2.5); Eosinophils % (Auto) 0 % (0-10); Hematocrit 36.5 % (36.0-46.0); Hemoglobin 12.6 g/dL (12.0-16.0); Immature Granulocytes % (Auto) 0 % (0-0); Immature Granulocytes Auto 0.05 Thou/mm3 (0.00-0.00); Lymphocytes # (Auto) 1.1 Thou/mm3 (1.0-4.8); Lymphocytes % (Auto) 9 % (10-50); Mean Corpuscular HGB Conc 34.5 g/dl (31.0-37.0); Mean Corpuscular Hemoglobin 30.6 pg (25.0-35.0); Mean Corpuscular Volume 89 fL (80-100); Monocytes # (Auto) 1.1 Thou/mm3 (0.0-0.8); Monocytes % (Auto) 10 % (0-12); Neutrophils # (Auto) 9.2 Thou/mm3 (1.8-7.7); Neutrophils % (Auto) 80 % (37-80); Nucleated Red Blood Cell % 0 /100 WBC (0); Platelet Count 197 Thou/mm3 (140-440); RDW Standard Deviation 40.5 fL (36.4-46.3); Red Blood Count 4.12 Miln/mm3 (4.00-5.20); White Blood Count 11.5 Thou/mm3 (3.6-11.0)
[2024-11-27 21:12] LABS: Alanine Aminotransferase 25 U/L (10-49); Albumin, Serum 3.9 gm/dL (3.4-4.8); Albumin/Globulin Ratio 1.3 (1.2-2.2); Alkaline Phosphatase 154 U/L (46-116); Anion Gap 4 (7-16); Aspartate Amino Transferase 18 U/L (0-34); BUN/Creatinine Ratio 24 Ratio (12-20); Bilirubin,Total 0.3 mg/dL (0.3-1.2); Blood Urea Nitrogen 19 mg/dL (9-23); Calcium 8.8 mg/dL (8.3-10.6); Calcium (Corrected) 8.9 mg/dL (8.5-10.1); Carbon Dioxide 31.2 mMol/L (20.0-31.0); Chloride 105 mMol/L (98-107); Creatinine (Component) 0.8 mg/dL (0.6-1.3); Estimated Creatinine Clearance 44.3 mL/min (>60); Glucose 169 mg/dL (74-106); Osmolality,Calculated 285 (275-295); Potassium 4.1 mMol/L (3.4-5.1); Sodium 140 mMol/L (136-145); Total Protein 6.9 gm/dL (5.7-8.2); Troponin I < 0.020 ng/mL (0.0-0.045); eGFR > 60 See Note
--- NOTE | 2024-11-28 00:42 | PD.EDFALL ---
ED Fall Injury RME/HPI General Chief Complaint: Extremity Injury, Lower Stated Complaint: LEFT HIP/LEG INJURY TODAY S/P FALL Time Seen by Provider: 11/27/24 19:30 Arrival date/time: 11/27/24 18:12 79 year old female present to emergency room with c/o of GLF today. Pt report tripped and land on left side injury hip, face, wrist and shoulder. LOCATION: face, hip, wrist, shoulder SEVERITY: Symptoms are described as being severe with limitations on activities of daily living CONTEXT: The patient is unable to identify any inciting events. DURATION/TIMING: The symptoms started approximately 1 day ASSOCIATED SYMPTOMS: The patient is unable to identify any other associated symptoms. MODIFYING FACTORS: The patient is unable to identify any alleviating or aggravating symptoms. PERTINENT ROS: no fevers, no cough, no pleuritic pain, no ripping or tearing sensations, denies any lower extremity edema and no unilateral swelling, no chest pain/shortness of breath no nausea,vomiting, diarrhea, no dizziness/headache no rash no loc/syncope episode no abd/back pain REVIEW OF SYSTEMS: See History of Present Illness - with the exception of those mentioned in the history of present illness, all other systems reviewed and reported as negative GENERAL: In general the patient is awake, interactive, in an emergency department gurney. HEAD/EYES/EARS/NOSE/THROAT: + left facial contusion. mucus membranes are moist, anicteric, palpebral conjunctiva is pink, trachea is midline. CARDIOVASCULAR: regular rate and regular rhythm, no murmurs, heart sounds are not distant, strong pulses in all four extremities that are equal and symmetric bilateral upper and lower extremities, normal capillary refill. CHEST/PULMONARY: normal chest rise and fall, good air movement, clear to auscultation bilaterally, normal inspiratory to expiratory ratios without evidence of respiratory distress. NECK: No midline/Paraspinal tenderness, no step off ROM/Strenght intact No Kernig and bruzinski sign. No trauma ABDOMEN: + left hip tenderness, soft, not tender, no masses appreciated BACK: normal range of motion without pain. NEUROLOGICAL: cranio-facial features are symmetric, moves all four extremities equally without obvious limitations or weakness. EXTREMITY:Left wrist abrasion, no tenderness to palpation over the long bones or large joints of the bilateral upper and lower extremities, no joint swelling, no joint erythema, no unilateral leg swelling and no peripheral edema. SKIN: warm, dry, well-perfused, no jaundice, no rash, no telangiectasias or petechia. PSYCH: calm, cooperative, no evidence of psychosis or agitation RME / HPI RME / HPI Narrative: 11/27/24 18:12 79 yo f present to Ed for c/o of GLF head, shoulder, hip injury today I have greeted and performed a focused initial assessment of this patient. A comprehensive ED assessment and evaluation of the patient, analysis of all test results, and completion of the medical decision making process will be conducted by additional ED providers. Related Data Home Medications ?Medication ?Instructions ?Recorded ?Confirmed gabapentin 100 mg capsule 100 mg PO BID #0 caps 01/05/15 12/04/21 ezetimibe 10 mg tablet (Zetia) 10 mg PO DAILY 12/21/18 12/04/21 loratadine 10 mg tablet 10 mg PO QAM 12/21/18 12/04/21 alendronate 35 mg tablet 35 mg PO QWEEK 01/28/21 12/04/21 clopidogrel 75 mg tablet 75 mg PO QDAY 01/28/21 12/04/21 docusate sodium 250 mg capsule 250 mg PO BID 01/28/21 12/04/21 duloxetine 20 mg capsule,delayed 20 mg PO QDAY 01/28/21 12/04/21 release fluticasone propionate 50 2 spray intranasal QAM 01/28/21 12/04/21 mcg/actuation nasal spray,suspension baclofen 10 mg tablet 10 mg PO HS 06/24/21 12/04/21 duloxetine 20 mg capsule,delayed 20 mg PO QDAY 12/04/21 12/04/21 release hydroxyzine HCl 10 mg tablet 10 mg PO Q8H 12/04/21 12/04/21 lidocaine 5 % topical patch 1 patch topical QDAY 12/04/21 12/04/21 linaclotide 145 mcg capsule 145 mcg PO QDAY 12/04/21 12/04/21 (Linzess) triamcinolone acetonide 0.1 % 1 applic topical BID 12/04/21 12/04/21 topical cream Previous Rx's ?Medication ?Instructions ?Recorded ciprofloxacin HCl 500 mg tablet 500 mg PO BID #20 tabs 12/10/21 furosemide 20 mg tablet (Lasix) 20 mg PO Q OTHER DAY #7 tabs 02/13/22 potassium chloride 20 mEq oral 20 meq PO QDAY #14 ea 02/13/22 packet ondansetron 4 mg disintegrating 4 mg PO TID PRN nausea and 04/10/22 tablet vomiting #14 tabs lactulose 10 gram/15 mL (15 mL) 10 g (15 mL) PO QDAY PRN 10/09/22 oral solution constipation #600 mL sulfamethoxazole 800 1 tab PO Q12H #10 tabs 10/31/22 mg-trimethoprim 160 mg tablet (Bactrim DS) azithromycin 500 mg tablet See Rx Instructions PO .COMPLEX #3 06/15/23 tabs famotidine 20 mg tablet (Pepcid) 20 mg PO BID #30 tabs 07/03/23 cefuroxime axetil 500 mg tablet 500 mg PO BID #14 tabs 12/22/23 acetaminophen 500 mg tablet 500 mg PO Q6H PRN pain #30 tabs 04/18/24 (Tylenol Extra Strength) famotidine 20 mg tablet (Pepcid) 20 mg PO QDAY #30 tabs 04/18/24 polyethylene glycol 3350 17 4 g PO QDAY #238 grams 04/18/24 gram/dose oral powder (GentleLax) ibuprofen 600 mg tablet 600 mg PO Q8H PRN fever or pain 10/20/24 #30 tabs nirmatrelvir 150 mg-ritonavir 100 See Rx Instructions PO .COMPLEX 10/20/24 mg tablets in a dose pack #20 tabs (Paxlovid) Allergies Allergy/AdvReac Type Severity Reaction Status Date / Time ampicillin Allergy Severe Diarrhea Verified 11/27/24 18:17 codeine Allergy Severe Abdominal Verified 11/27/24 18:17 Pain Milk Containing Products Allergy Severe Abdominal Verified 11/27/24 18:17 (Dairy) Pain morphine Allergy Severe ER GIVEN Verified 11/27/24 18:17 09/11/08 22:45 -NO PROB. CONT MONITOR diazepam AdvReac Severe Vomiting Verified 11/27/24 18:17 hydrocodone AdvReac Severe ANXIETY Verified 11/27/24 18:17 Course Course Course Narrative: This? presents with head trauma after a mechanical GLF. DDX includes MSK trauma, facial fractures, ICH or traumatic SAH, C-spine injury. Doubt other extracranial causes of injury. Considered nonmechanical causes of fall such as syncope, primary cardiopulmonary etiologies such as ACS/PE, but think these are unlikely. Will get head/neck/chest/abd CT, pain control,trop, ekg? C-collar, basic labs, reassess, discharge Quality Measures none Orders Category Date Time Status EKG (ED ONLY) *Do not use* NOW Care 11/27/24 19:[address] cervical spine wo con Stat Exams 11/27/24 19:[address] chest abdomen pelvis wo Stat Exams 11/27/24 20:[address] head/brain wo con Stat Exams 11/27/24 19:57 Completed EKG (ED Only) Stat Exams 11/27/24 19:57 Draft XR shoulder LT min 2V Stat Exams 11/27/24 19:57 Completed XR wrist comp LT min 3V Stat Exams 11/27/24 19:57 Completed CBC Stat Lab 11/27/24 20:15 Completed CMP [Comprehensive Metabolic Panel] Stat Lab 11/27/24 20:15 Completed Troponin I Stat Lab 11/27/24 20:15 Completed Vital Signs Vital signs: Vital Signs Temperature 98.7 F 11/27/24 19:58 Pulse Rate 91 11/27/24 19:58 Respiratory Rate 16 11/27/24 19:58 Blood Pressure 102/65 11/27/24 19:58 Pulse Oximetry (%) 99 11/27/24 19:58 Oxygen Delivery Method Room Air 11/27/24 19:58 Procedures -ED EKG Interpretation #1: Date of EK11/28/24 Rate: 78 Interpretation: Reviewed by me EKG Impression: Normal sinus rhythm, No acute ST-T changes, No ectopy, No ischemic changes and Normal QRS Fall Patient data External records reviewed:: [facility] previous records Clinical information provided by:: patient Social determinants that could affect healthcare access:: none Patient has the following chronic illnesses:: as stated in chart How is presenting disease/condition affected by chronic disease/condition?: uneffected by Evaluation data The following diagnostics were reviewed and interpreted by me:: lab results and radiology exam(s) Lab and/or radiology exams considered but not ordered:: n/a Interpretation Summary: cbc/cmp no acute findings trop wnl ct head, neck, chest and abd: no acute findings Medications / Prescriptions Medications or Prescriptions considered but not ordered:: n/a Medication administrations:: n/a Consultations Consultation(s) initiated? (list below): No Diagnosis Fall Differential Diagnosis: fracture of wrist, compression fracture, concussion with loss of consciousness, concussion without loss of consciousness and other (head injury, head bleed, facial fx, dehydration, mi/nstemi kidney injury) Most likely diagnosis given after review of the tests above:: facial contusion, wrist abrasion, head injury Admission Indicated Admission indicated?: not indicated Admission Request Was there a request for admission?: No Disposition Plan Disposition Plan: Discharge Discharge Attestation Discharge Attestation: The patient and all family members were given an opportunity to ask questions and understood the discharge instructions. Discharge instructions specifically effects, indications for sooner follow up or return to the emergency department, and the expected course of current diagnosis. Patient condition: Stable Discharge Plan Plan Patient Disposition: HOME (Self Care) Health Concerns: Follow with PMD as directed Take tylenol or motrin as need Return to ED if sx worsen Prescriptions/Referrals Prescriptions/Med Rec: No Action gabapentin 100 MG capsule 100 mg PO BID Qty: 0 clopidogrel 75 mg Tablet 75 mg PO QDAY duloxetine 20 mg Capsule,Delayed Release(Dr/Ec) 20 mg PO QDAY docusate sodium 250 mg Capsule 250 mg PO BID alendronate 35 mg tablet 35 mg PO QWEEK Patient Comments: TAKE 1 TABLET BY MOUTH ONCE A WEEK IN THE MORNING AT LEAST 30MIN BEFORE FIRST MEAL,DRINK OR MED Rx Instructions: wednesday fluticasone propionate 50 mcg/actuation spray,suspension 2 spray INTRANASAL QAM Patient Comments: SPRAY 2 SPRAYS INTO EACH NOSTRIL EVERY DAY triamcinolone acetonide 0.1 % cream 1 applic TOPICAL BID lidocaine 5 % adhesive patch,medicated 1 patch TOPICAL QDAY Patient Comments: APPLY 1 PATCH BY TOPICAL ROUTE ONCE DAILY (MAY WEAR UP TO 12HOURS.) hydroxyzine HCl 10 mg tablet 10 mg PO Q8H Patient Comments: TAKE 1 TABLET BY MOUTH EVERY 8 HOURS NEEDED FOR ITCHING duloxetine 20 mg capsule,delayed release(DR/EC) 20 mg PO QDAY Linzess 145 mcg capsule 145 mcg PO QDAY furosemide [Lasix] 20 mg tablet 20 mg PO Q OTHER DAY Qty: 7 0RF potassium chloride 20 mEq packet 20 meq PO QDAY Qty: 14 0RF ondansetron 4 mg tablet,disintegrating 4 mg PO TID PRN (Reason: nausea and vomiting) Qty: 14 0RF loratadine 10 mg Tablet 10 mg PO QAM ezetimibe [Zetia] 10 mg Tablet 10 mg PO DAILY baclofen 10 mg tablet 10 mg PO HS Patient Comments: TAKE 1 TABLET BY MOUTH EVERY DAY AT BEDTIME NEEDED FOR MUSCLE SPASMS ciprofloxacin HCl 500 mg tablet 500 mg PO BID Qty: 20 0RF lactulose 10 gram/15 mL (15 mL) solution 10 g PO QDAY PRN (Reason: constipation) Qty: 600 0RF azithromycin 500 mg tablet See Rx Instructions .ROUTE .COMPLEX Qty: 3 0RF Rx Instructions: For 500 mg dose pack: take 500 mg once daily for 3 days famotidine [Pepcid] 20 mg tablet 20 mg PO BID Qty: 30 0RF cefuroxime axetil 500 mg tablet 500 mg PO BID Qty: 14 0RF Paxlovid 150-100 mg tablets,dose pack See Rx Instructions .ROUTE .COMPLEX Qty: 20 0RF Rx Instructions: take ONE 150 mg tablet of nirmatrelvir with ONE 100 mg tablet of ritonavir twice daily for 5 days ibuprofen 600 mg tablet 600 mg PO Q8H PRN (Reason: fever or pain) Qty: 30 0RF sulfamethoxazole-trimethoprim [Bactrim DS] 800-160 mg tablet 1 tab PO Q12H Qty: 10 0RF polyethylene glycol 3350 [GentleLax] 17 gram/dose powder 4 g PO QDAY Qty: 238 0RF famotidine [Pepcid] 20 mg tablet 20 mg PO QDAY Qty: 30 0RF acetaminophen [Tylenol Extra Strength] 500 mg tablet 500 mg PO Q6H PRN (Reason: pain) Qty: 30 0RF Referrals: No Primary/Family,Physician [Primary Care Provider] - In 1 week Problem List Clinical Impression: Contusion of face, Abrasion, Contusion Patient/Caregiver Discharge Instructions Education Materials: Contusion Bone Tx, ED Head Injury (Adult) Print Language: French Stand Alone Forms: [employer] Award Info., Patient Portal Info Letter
== END 2024-11-28 00:52 | disposition home or self-care (01) ==
PROVIDERS: Physician Assistant; Emergency Provider Emergency Medicine
DX: S00.83XA Contusion of other part of head, initial encounter (principal); S60.812A Abrasion of left wrist, initial encounter; S49.92XA Unspecified injury of left shoulder and upper arm, initial encounter; W01.0XXA Fall on same level from slipping, tripping and stumbling without subsequent striking against object, initial encounter
CPT/HCPCS: 36415; 70450; 71250; 72125; 73030; 73110; 74176; 80053; 84484; 85025; 93005; 99284

== ENCOUNTER → 2024-11-30 | Outpatient (CLI) | payer OTHER, MEDICAID, SELFPAY ==
--- NOTE | 2024-11-30 17:00 | XR_ITS ---
Exam: MRI knee without contrast, right complete Date and time of exam: November 30, 2024 1525 hrs. Indications: Patient fell one month ago with injury to the knee, knee pain Technique: Multiple axial, coronal, and sagittal sections on the knee have been obtained. T2-Weighted sagittal, fat-suppressed images, TR 3,500, TE 62, T2 weighted coronal fat-saturated images, TR 3,500, TE 62 Proton density sagittal sections, TR 1800, TE 31. T-1 weighted coronal images, TR 524, TE 13.0 Findings: Medial meniscus anterior horn intact. Medial meniscus, body is intact. Posterior horn medial meniscus intact. Lateral meniscus anterior horn is intact Lateral meniscus, body small peripheral horizontal linear tear Posterior horn lateral meniscus is intact Anterior cruciate ligament moderate sprain Posterior cruciate ligament appears intact. Knee effusion is small. Quadriceps and patellar tendons appear intact. There is no evidence of tendinosis. Inflammatory change or fracture of Hoffa's fat pad is not seen. Medial patellar facet demonstrates moderate thinning. Lateral patellar facet cartilage demonstrates moderate thinning. Trochlear cartilage demonstrates moderate thinning. Marrow signal adequate. Medial collateral ligament appears intact. No meniscocapsular separation is seen. Illiotibial band and fibular collateral ligament are intact. Biceps femoris tendons appear intact. Medial femoral condylar articular cartilage demonstrates moderate thinning. Lateral femoral condylar articular cartilage demonstratesmoderate thinning. Tibial plateau cartilage demonstrates moderate thinning. Impression: Small horizontal peripheral linear tear body lateral meniscus Moderate sprain anterior cruciate ligament
== END | disposition home or self-care (01) ==
LOC: SMRI 16:34
PROVIDERS: PCP Family Medicine; Referring Provider Family Medicine; Visit Provider Family Medicine
DX: S83.511A Sprain of anterior cruciate ligament of right knee, initial encounter (principal); S83.281A Other tear of lateral meniscus, current injury, right knee, initial encounter; W19.XXXA Unspecified fall, initial encounter
CPT/HCPCS: 73721

== ENCOUNTER 2024-12-09 11:04 | Emergency (ER) | payer OTHER, MEDICAID, SELFPAY ==
[2024-12-09 11:13] VITALS: BP 105/58; PULSE 93; RESP 19; TEMP 36.9; O2SAT 97; BMI 24.2
--- NOTE | 2024-12-09 11:40 | XR_ITS ---
Examination: CT brain head without contrast. 2-D sagittal coronal reconstructions Date and time of exam:December 09, 2024 1150 hrs. Indications: Dizziness today CTDI: vol (mGy):50.8 DLP: (mGycm):976 Technique: Multiple CT axial sections of the brain have been obtained, 5 mm slice thickness. Contrast has not been administered. 2-D sagittal, coronal reconstructions have been obtained Low dose protocols were performed. One or more of the following dose reduction techniques were used; automated exposure control, adjustment of the mA and/or KV according to patient size, use of iterative reconstruction technique. Findings: No significant ventricular enlargement. Intra-axial or extra-axial hemorrhage density is not seen. No mass effect or midline shift Basal cisterns are not remarkable. Fourth ventricle is midline. Cranial vault intact. Significant ethmoid sinusitis Impression: Negative for acute hemorrhage, mass effect or midline shift As clinically warranted, consider brain MRI follow-up
--- NOTE | 2024-12-09 11:40 | EKG_ITS ---
[facility] Test Date: 2024-12-09 Pat Name: KEVIN SCHUMACHER Department: Room: - Gender: Female [employer]: : 1945 Requested By: Lesly Veloz ([facility]) Carmen Order Number: [id number] Reading MD: Lesly Veloz ([facility]) Carmen Measurements Intervals [place] Rate: 79 P: 33 AK: 122 QRS: -31 QRSD: 79 T: 19 QT: 382 QTc: 440 Interpretive Statements SINUS RHYTHM LEFT AXIS DEVIATION [QRS AXIS < -30] LOW QRS VOLTAGE IN PRECORDIAL LEADS [QRS DEFLECTION < 1.0 mV IN CHEST LEADS] POSSIBLE ANTERIOR MYOCARDIAL INFARCTION , PROBABLY OLD [30 ms Q WAVE IN V3/V4, OR R < 0.2 mV IN V4] Compared to ECG 11/27/2024 20:04:21 Left-axis deviation now present Myocardial infarct finding now present /store/[email or web address]/[id number].pdf
--- NOTE | 2024-12-09 11:40 | XR_ITS ---
Examination: AP lateral chest 2 views Technique: Upright AP lateral chest 2 views Exam date and time: December 09, 2024 1113 hrs. Comparison October 20, 2024 Indications: Chest pain beginning 3 days ago. Findings: Mild vascular congestion. No lobar pneumonia No pulmonary edema Impression: Mild vascular congestion
--- NOTE | 2024-12-09 11:41 | PD.EDRME ---
Rapid Medical Screening Exam RME Arrival date/time: 12/09/24 11:04 79-year-old female presents emergency department with complaints of dizziness, general malaise and coughing up phlegm. I have greeted and performed a focused initial assessment of this patient. Initial appropriate labs ordered at this time. A comprehensive ED assessment and evaluation of the patient and analysis of all test and completion of medical decision making process will be conducted by additional ED provider. Chief Complaint: Flu Like Symptoms Time Seen by Provider: 12/09/24 11:21 Vital signs: Vital Signs Temperature 98.5 F 12/09/24 11:13 Pulse Rate 93 12/09/24 11:13 Respiratory Rate 19 12/09/24 11:13 Blood Pressure 105/58 L 12/09/24 11:13 Pulse Oximetry (%) 97 12/09/24 11:13 Oxygen Delivery Method Room Air 12/09/24 11:13
[2024-12-09 12:33] LABS: Basophils % (Auto) 0 % (0-2.5); Eosinophils % (Auto) 1 % (0-10); Hematocrit 34.5 % (36.0-46.0); Hemoglobin 11.7 g/dL (12.0-16.0); Immature Granulocytes % (Auto) 1 % (0-0); Immature Granulocytes Auto 0.03 Thou/mm3 (0.00-0.00); Lymphocytes # (Auto) 0.8 Thou/mm3 (1.0-4.8); Lymphocytes % (Auto) 15 % (10-50); Mean Corpuscular HGB Conc 33.9 g/dl (31.0-37.0); Mean Corpuscular Hemoglobin 30.1 pg (25.0-35.0); Mean Corpuscular Volume 89 fL (80-100); Monocytes # (Auto) 0.5 Thou/mm3 (0.0-0.8); Monocytes % (Auto) 9 % (0-12); Neutrophils # (Auto) 4.1 Thou/mm3 (1.8-7.7); Neutrophils % (Auto) 74 % (37-80); Nucleated Red Blood Cell % 0 /100 WBC (0); Platelet Count 144 Thou/mm3 (140-440); RDW Standard Deviation 39.1 fL (36.4-46.3); Red Blood Count 3.89 Miln/mm3 (4.00-5.20); White Blood Count 5.6 Thou/mm3 (3.6-11.0)
[2024-12-09 12:40] LABS: Partial Thromboplastin Time 27.2 Seconds (22.0-36.0); Prothrombin Time 11.4 Seconds (9.0-12.2)
[2024-12-09 12:43] LABS: B-Type Natriuretic Peptide 152 pg/mL (0-100)
[2024-12-09 12:44] LABS: Alanine Aminotransferase 19 U/L (10-49); Albumin, Serum 3.7 gm/dL (3.4-4.8); Albumin/Globulin Ratio 1.3 (1.2-2.2); Alkaline Phosphatase 155 U/L (46-116); Anion Gap 6 (7-16); Aspartate Amino Transferase 26 U/L (0-34); BUN/Creatinine Ratio 23 Ratio (12-20); Bilirubin,Total 0.5 mg/dL (0.3-1.2); Blood Urea Nitrogen 16 mg/dL (9-23); Calcium 8.3 mg/dL (8.3-10.6); Calcium (Corrected) 8.5 mg/dL (8.5-10.1); Carbon Dioxide 30.1 mMol/L (20.0-31.0); Chloride 100 mMol/L (98-107); Creatinine (Component) 0.7 mg/dL (0.6-1.3); Estimated Creatinine Clearance 50.7 mL/min (>60); Globulin 2.8 gm/dL (2.3-3.5); Glucose 234 mg/dL (74-106); Lipase 19 U/L (12-53); Magnesium 2.3 mg/dL (1.6-2.6); Osmolality,Calculated 281 (275-295); Potassium 4.4 mMol/L (3.4-5.1); Sodium 136 mMol/L (136-145); Total Protein 6.5 gm/dL (5.7-8.2); Troponin I < 0.002 ng/mL (0.0-0.045); eGFR > 60 See Note
--- NOTE | 2024-12-09 15:56 | PRELIM_ITS ---
CT scan of the head without intravenous contrast (axial sections with sagittal and coronal reformats) December 09, 2024 1152 hours Clinical History: falll dizzy No prior study is available for comparison. Findings: There is no evidence of intracranial hemorrhage, mass effect or midline shift. There are periventricular white matter hypodensities, compatible with chronic small vessel ischemia. The CSF spaces are prominent consistent with volume loss. There is atheromatous calcification of the intracranial arteries. The calvarium is intact. There is partial opacification of the left mastoid air cells. There is mild mucosal thickening in bilateral ethmoid sinuses. There is a small retention cyst or polyp in the left maxillary sinus. The right mastoid air cells and the other visualized paranasal sinuses are clear. Impression: No evidence of intracranial hemorrhage, midline shift or calvarial fracture. Periventricular chronic small vessel ischemia and volume loss. Other findings as described above. Report Electronically Signed By: Suresh Cabrera 12/09/2024 3:55:35 PM [EST]
[2024-12-09 16:36] VITALS: BP 101/66; PULSE 80; RESP 18; TEMP 37.1; O2SAT 98
--- NOTE | 2024-12-09 16:37 | PD.EDADULT ---
ED General RME/HPI General Chief complaint: Flu Like Symptoms Stated complaint: PHLEGM IN THROAT AND I FEEL DIZZY Time Seen by Provider: 12/09/24 11:21 Arrival date/time: 12/09/24 11:04 RME / HPI RME / HPI narrative: Patient is a 79 years old female with PMH of DM2, CAD s/p stents, GERD presents emergency department with complaints of dizziness, general malaise, runny nose and coughing up phlegm. Phelgm is green-yellow. She report chills, but no fever. She reports symptoms are on and off for the last several months. She had multiple antibiotic treatments since she had COVID in October but her symptoms never resolved completely, she completed antibiotic 2 days ago but cannot recall the name of it. She also fell 2 times within the last several months due to dizziness. She has walker and cane but rarely uses it. She denies difficulty breathing, chest pain, fever, nausea, vomiting. She also reports using fluticasone nasal spray every day for several years. Related Data Home Medications ?Medication ?Instructions ?Recorded ?Confirmed gabapentin 100 mg capsule 100 mg PO BID #0 caps 01/05/15 12/04/21 ezetimibe 10 mg tablet (Zetia) 10 mg PO DAILY 12/21/18 12/04/21 loratadine 10 mg tablet 10 mg PO QAM 12/21/18 12/04/21 alendronate 35 mg tablet 35 mg PO QWEEK 01/28/21 12/04/21 clopidogrel 75 mg tablet 75 mg PO QDAY 01/28/21 12/04/21 docusate sodium 250 mg capsule 250 mg PO BID 01/28/21 12/04/21 duloxetine 20 mg capsule,delayed 20 mg PO QDAY 01/28/21 12/04/21 release fluticasone propionate 50 2 spray intranasal QAM 01/28/21 12/04/21 mcg/actuation nasal spray,suspension baclofen 10 mg tablet 10 mg PO HS 06/24/21 12/04/21 duloxetine 20 mg capsule,delayed 20 mg PO QDAY 12/04/21 12/04/21 release hydroxyzine HCl 10 mg tablet 10 mg PO Q8H 12/04/21 12/04/21 lidocaine 5 % topical patch 1 patch topical QDAY 12/04/21 12/04/21 linaclotide 145 mcg capsule 145 mcg PO QDAY 12/04/21 12/04/21 (Linzess) triamcinolone acetonide 0.1 % 1 applic topical BID 12/04/21 12/04/21 topical cream Previous Rx's ?Medication ?Instructions ?Recorded ciprofloxacin HCl 500 mg tablet 500 mg PO BID #20 tabs 12/10/21 furosemide 20 mg tablet (Lasix) 20 mg PO Q OTHER DAY #7 tabs 02/13/22 potassium chloride 20 mEq oral 20 meq PO QDAY #14 ea 02/13/22 packet ondansetron 4 mg disintegrating 4 mg PO TID PRN nausea and 04/10/22 tablet vomiting #14 tabs lactulose 10 gram/15 mL (15 mL) 10 g (15 mL) PO QDAY PRN 10/09/22 oral solution constipation #600 mL sulfamethoxazole 800 1 tab PO Q12H #10 tabs 10/31/22 mg-trimethoprim 160 mg tablet (Bactrim DS) azithromycin 500 mg tablet See Rx Instructions PO .COMPLEX #3 06/15/23 tabs famotidine 20 mg tablet (Pepcid) 20 mg PO BID #30 tabs 07/03/23 cefuroxime axetil 500 mg tablet 500 mg PO BID #14 tabs 12/22/23 acetaminophen 500 mg tablet 500 mg PO Q6H PRN pain #30 tabs 04/18/24 (Tylenol Extra Strength) famotidine 20 mg tablet (Pepcid) 20 mg PO QDAY #30 tabs 04/18/24 polyethylene glycol 3350 17 4 g PO QDAY #238 grams 04/18/24 gram/dose oral powder (GentleLax) ibuprofen 600 mg tablet 600 mg PO Q8H PRN fever or pain 10/20/24 #30 tabs nirmatrelvir 150 mg-ritonavir 100 See Rx Instructions PO .COMPLEX 10/20/24 mg tablets in a dose pack #20 tabs (Paxlovid) benzonatate 100 mg capsule 100 mg PO BID PRN cough #20 caps 12/09/24 Allergies Allergy/AdvReac Type Severity Reaction Status Date / Time ampicillin Allergy Severe Diarrhea Verified 12/09/24 11:08 codeine Allergy Severe Abdominal Verified 12/09/24 11:08 Pain Milk Containing Products Allergy Severe Abdominal Verified 12/09/24 11:08 (Dairy) Pain morphine Allergy Severe ER GIVEN Verified 12/09/24 11:08 09/11/08 22:45 -NO PROB. CONT MONITOR diazepam AdvReac Severe Vomiting Verified 12/09/24 11:08 hydrocodone AdvReac Severe ANXIETY Verified 12/09/24 11:08 Review of Systems Review of Systems Systems Reviewed: All systems reviewed, normal except as documented ED Exam Narrative Physical exam: Gen: Well-developed and well-nourished elderly female. HEENT: NCAT, PERRLA, EOMI, MMM, anicteric conjunctivae, large bruise over left face. Light reflex is diminished over left lympanic membrane. Intranasal hyperemia noticed. CVS: normal S1 and S2. RRR. No M/R/G. Resp: CTA B/L. No rhonchi, rales, crackles or wheezing. Abd: soft, non-tender, non-distended. BS+ in all 4 quadrants. MSK: Good ROM in BUE & BLE. No rash. 2+ edema BLE. Neuro: CN II-XII grossly intact. Strength 5/5 in BUE & BLE. Alert and oriented x3. Psych: appropriate mood and affect. Course Quality Measures none Orders Category Date Time Status Bedside COVID-19 Antigen Test NOW Care 12/09/24 11:40 Active Bedside Influenza A&B Antigen Test NOW Care 12/09/24 11:40 Completed EKG (ED ONLY) *Do not use* NOW Care 12/09/24 11:[address] head/brain wo con Stat Exams 12/09/24 11:40 Completed EKG (ED Only) Stat Exams 12/09/24 11:40 Draft XR chest 2V Stat Exams 12/09/24 11:40 Completed B-Type Natriuretic Peptide Stat Lab 12/09/24 12:09 Completed CBC Stat Lab 12/09/24 12:09 Completed Comprehensive Metabolic Panel Stat Lab 12/09/24 12:09 Completed Lipase Stat Lab 12/09/24 12:09 Completed Magnesium Stat Lab 12/09/24 12:09 Completed Partial Thromboplastin Time Stat Lab 12/09/24 12:09 Completed Prothrombin Time with INR Stat Lab 12/09/24 12:09 Completed Troponin I Stat Lab 12/09/24 12:09 Completed Vital Signs Vital signs: Vital Signs Temperature 98.5 F 12/09/24 11:13 Pulse Rate 93 12/09/24 11:13 Respiratory Rate 19 12/09/24 11:13 Blood Pressure 105/58 L 12/09/24 11:13 Pulse Oximetry (%) 97 12/09/24 11:13 Oxygen Delivery Method Room Air 12/09/24 11:13 Procedures -ED EKG Interpretation #1: Date of EK12/09/24 Time of EK:45 Rate: 79 Interpretation: Reviewed by me EKG Impression: Normal sinus rhythm and No acute ST-T changes Additional EKG comment: Left axis deviation MDM Patient data External records reviewed:: [facility] previous records Clinical information provided by:: patient Social determinants that could affect healthcare access:: none Patient has the following chronic illnesses:: DM2, CAD s/p stents, GERD How is presenting disease/condition affected by chronic disease/condition?: exacerbated by Evaluation data The following diagnostics were reviewed and interpreted by me:: lab results, radiology exam(s) and EKG tracing(s) Lab and/or radiology exams considered but not ordered:: CT chest Interpretation Summary: Mild vascular congestion on CXR. Hyperglycemia. Elevated BNP, mild anemia. Medications Medications considered but not ordered:: na Medication administrations:: na Consultations Consultation(s) initiated? (list below): No Diagnosis Differential Diagnosis ED Complaint MDM: COVID, Influenza, common cold, postnasal drip Most likely diagnosis given after review of the tests above:: Postnasal drip Admission Indicated Admission indicated?: not indicated Explain why admission is indicated or not indicated:: Postnasal drip likely due to chronic fluticasone use, vitals are stable, patient is not septic, no respiratory failure. COVID and influenza negative. Admission Request Was there a request for admission?: No Disposition Plan Disposition Plan: Discharge Discharge Attestation Discharge Attestation: The patient and all family members were given an opportunity to ask questions and understood the discharge instructions. Discharge instructions specifically effects, indications for sooner follow up or return to the emergency department, and the expected course of current diagnosis. Patient condition: Stable Medical Decision Making MDM Narrative MDM Narrative: The patient is a 79-year-old female with a history of diabetes mellitus type 2, CAD (s/p stents), and GERD, presenting with dizziness, general malaise, postnasal drip, and productive cough with green-yellow phlegm. These symptoms have persisted intermittently since October following a COVID-19 infection and multiple courses of antibiotics. Her chronic use of fluticasone nasal spray likely contributes to her ongoing postnasal drip and nasal irritation. Examination findings revealed mild vascular congestion on chest imaging, hyperglycemia, mild anemia, and elevated BNP without signs of infection, sepsis, or respiratory failure. Additionally, the patient's recent falls and dizziness may stem from multifactorial causes such as vestibular dysfunction, chronic sinus irritation, and underlying vascular congestion. Management focuses on symptom relief and addressing her chronic conditions. Discharge recommendations include Tessalon for cough as needed, steam showers to alleviate nasal irritation, and the use of a walker or cane to minimize fall risk. She is advised to follow up with her primary care provider, ENT (Dr. Martinez), and cardiology (Dr. Mcbride) within a week for continued evaluation and management. Discussions with ENT should include the potential discontinuation or tapering of fluticasone nasal spray. Return precautions were provided, emphasizing the need to seek emergency care for worsening symptoms such as fever, shortness of breath, or new falls. Differential Diagnosis Differential Diagnosis: COVID, Influenza, common cold, postnasal drip Lab Data 12/09/24 12:09 12/09/24 12:09 Labs: Lab Results 12/09/24 Range/Units 12:09 WBC 5.6 (3.6-11.0) Thou/mm3 RBC 3.89 L (4.00-5.20) Miln/mm3 Hgb 11.7 L (12.0-16.0) g/dL Hct 34.5 L (36.0-46.0) % MCV 89 (80-100) fL MCH 30.1 (25.0-35.0) pg MCHC 33.9 (31.0-37.0) g/dl RDW Std Deviation 39.1 (36.4-46.3) fL Plt Count 144 D (140-440) Thou/mm3 Neut % (Auto) 74 (37-80) % Lymph % (Auto) 15 (10-50) % Mcminn % (Auto) 9 (0-12) % Eos % (Auto) 1 (0-10) % Baso % (Auto) 0 (0-2.5) % Neut # (Auto) 4.1 (1.8-7.7) Thou/mm3 Lymph # (Auto) 0.8 L (1.0-4.8) Thou/mm3 Mcminn # (Auto) 0.5 (0.0-0.8) Thou/mm3 Eos # (Auto) 0.0 (0.0-0.5) Thou/mm3 Baso # (Auto) 0.0 (0.0-0.2) Thou/mm3 Immature Gran # (Auto) 0.03 H (0.00-0.00) Thou/mm3 Absolute Nucleated RBC 0.00 (0.00-0.00) Thou/mm3 Immature Gran % 1 H (0-0) % Nucleated RBC % 0 (0) /100 WBC PT 11.4 (9.0-12.2) Seconds INR 1.0 (0.9-1.3) APTT 27.2 (22.0-36.0) Seconds Sodium 136 (136-145) mMol/L Potassium 4.4 (3.4-5.1) mMol/L Chloride 100 (98-107) mMol/L Carbon Dioxide 30.1 (20.0-31.0) mMol/L Anion Gap 6 L (7-16) BUN 16 (9-23) mg/dL Creatinine 0.7 (0.6-1.3) mg/dL Estim Creat Clear Calc 50.7 L (>60) mL/min eGFR > 60 (60 - ) See Note BUN/Creatinine Ratio 23 H (12-20) Ratio Glucose 234 H (74-106) mg/dL Calculated Osmolality 281 (275-295) Calcium 8.3 (8.3-10.6) mg/dL Corrected Calcium 8.5 (8.5-10.1) mg/dL Magnesium 2.3 (1.6-2.6) mg/dL Total Bilirubin 0.5 (0.3-1.2) mg/dL AST 26 (0-34) U/L ALT 19 (10-49) U/L Alkaline Phosphatase 155 H (46-116) U/L Troponin I < 0.002 (0.0-0.045) ng/mL B-Natriuretic Peptide 152 H (0-100) pg/mL Total Protein 6.5 (5.7-8.2) gm/dL Albumin 3.7 (3.4-4.8) gm/dL Globulin 2.8 (2.3-3.5) gm/dL Albumin/Globulin Ratio 1.3 (1.2-2.2) Lipase 19 (12-53) U/L Discharge Plan Plan Patient Disposition: HOME (Self Care) Patient condition on transfer: Stable Prescriptions/Referrals Prescriptions/Med Rec: New benzonatate 100 mg capsule 100 mg PO BID PRN (Reason: cough) Qty: 20 0RF No Action gabapentin 100 MG capsule 100 mg PO BID Qty: 0 clopidogrel 75 mg Tablet 75 mg PO QDAY duloxetine 20 mg Capsule,Delayed Release(Dr/Ec) 20 mg PO QDAY docusate sodium 250 mg Capsule 250 mg PO BID alendronate 35 mg tablet 35 mg PO QWEEK Patient Comments: TAKE 1 TABLET BY MOUTH ONCE A WEEK IN THE MORNING AT LEAST 30MIN BEFORE FIRST MEAL,DRINK OR MED Rx Instructions: wednesday fluticasone propionate 50 mcg/actuation spray,suspension 2 spray INTRANASAL QAM Patient Comments: SPRAY 2 SPRAYS INTO EACH NOSTRIL EVERY DAY triamcinolone acetonide 0.1 % cream 1 applic TOPICAL BID lidocaine 5 % adhesive patch,medicated 1 patch TOPICAL QDAY Patient Comments: APPLY 1 PATCH BY TOPICAL ROUTE ONCE DAILY (MAY WEAR UP TO 12HOURS.) hydroxyzine HCl 10 mg tablet 10 mg PO Q8H Patient Comments: TAKE 1 TABLET BY MOUTH EVERY 8 HOURS NEEDED FOR ITCHING duloxetine 20 mg capsule,delayed release(DR/EC) 20 mg PO QDAY Linzess 145 mcg capsule 145 mcg PO QDAY furosemide [Lasix] 20 mg tablet 20 mg PO Q OTHER DAY Qty: 7 0RF potassium chloride 20 mEq packet 20 meq PO QDAY Qty: 14 0RF ondansetron 4 mg tablet,disintegrating 4 mg PO TID PRN (Reason: nausea and vomiting) Qty: 14 0RF loratadine 10 mg Tablet 10 mg PO QAM ezetimibe [Zetia] 10 mg Tablet 10 mg PO DAILY baclofen 10 mg tablet 10 mg PO HS Patient Comments: TAKE 1 TABLET BY MOUTH EVERY DAY AT BEDTIME NEEDED FOR MUSCLE SPASMS ciprofloxacin HCl 500 mg tablet 500 mg PO BID Qty: 20 0RF lactulose 10 gram/15 mL (15 mL) solution 10 g PO QDAY PRN (Reason: constipation) Qty: 600 0RF azithromycin 500 mg tablet See Rx Instructions .ROUTE .COMPLEX Qty: 3 0RF Rx Instructions: For 500 mg dose pack: take 500 mg once daily for 3 days famotidine [Pepcid] 20 mg tablet 20 mg PO BID Qty: 30 0RF cefuroxime axetil 500 mg tablet 500 mg PO BID Qty: 14 0RF Paxlovid 150-100 mg tablets,dose pack See Rx Instructions .ROUTE .COMPLEX Qty: 20 0RF Rx Instructions: take ONE 150 mg tablet of nirmatrelvir with ONE 100 mg tablet of ritonavir twice daily for 5 days ibuprofen 600 mg tablet 600 mg PO Q8H PRN (Reason: fever or pain) Qty: 30 0RF sulfamethoxazole-trimethoprim [Bactrim DS] 800-160 mg tablet 1 tab PO Q12H Qty: 10 0RF polyethylene glycol 3350 [GentleLax] 17 gram/dose powder 4 g PO QDAY Qty: 238 0RF famotidine [Pepcid] 20 mg tablet 20 mg PO QDAY Qty: 30 0RF acetaminophen [Tylenol Extra Strength] 500 mg tablet 500 mg PO Q6H PRN (Reason: pain) Qty: 30 0RF Referrals: Bong Batista MD [Primary Care Provider] - In 1 week Problem List Clinical Impression: Postnasal drip, Chronic sinusitis Patient/Caregiver Discharge Instructions Education Materials: Chronic Sinusitis Additional Instructions: Continue home medications as prescribed. Follow up with PCP, ENT Dr. Martinez and cardiology Dr. Mcbride within 1 week. Discuss with ENT Dr. Martinez about weaning off nasal fluticasone. Take Tessalon 1 cap as needed for cough up to 2 times a day. Recommended steam showers every time she take a shower. Use walker or cane every time you ambulate. Return to the ED if symptoms recur or worsen. Print Language: Jordanian Stand Alone Forms: [employer] Award Info., Patient Portal Info Letter
--- NOTE | 2024-12-09 17:29 | PD.EDURI ---
Upper Respiratory Inf. RME/HPI General Chief Complaint: Flu Like Symptoms Stated Complaint: PHLEGM IN THROAT AND I FEEL DIZZY Time Seen by Provider: 12/09/24 11:21 Arrival date/time: 12/09/24 11:04 RME / HPI RME / HPI Narrative: Patient is a 79 years old female with PMH of DM2, CAD s/p stents, GERD presents emergency department with complaints of dizziness, general malaise, runny nose and coughing up phlegm. Phelgm is green-yellow. She report chills, but no fever. She reports symptoms are on and off for the last several months. She had multiple antibiotic treatments since she had COVID in October but her symptoms never resolved completely, she completed antibiotic 2 days ago but cannot recall the name of it. She also fell 2 times within the last several months due to dizziness. She has walker and cane but rarely uses it. She denies difficulty breathing, chest pain, fever, nausea, vomiting. DR. MORAES MAIN ED EVALUATION: 79 yaer old female with past medical history significant for CAD s/p stents, diabetes type 2, hypercholesterolemia, GERD, and hysterectomy presents to the Emergency Department with complaint of Patient denies any tobacco, alcohol, or substance use. Related Data Home Medications ?Medication ?Instructions ?Recorded ?Confirmed gabapentin 100 mg capsule 100 mg PO BID #0 caps 01/05/15 12/04/21 ezetimibe 10 mg tablet (Zetia) 10 mg PO DAILY 12/21/18 12/04/21 loratadine 10 mg tablet 10 mg PO QA 12/21/18 12/04/21 alendronate 35 mg tablet 35 mg PO QWEEK 01/28/21 12/04/21 clopidogrel 75 mg tablet 75 mg PO QDAY 01/28/21 12/04/21 docusate sodium 250 mg capsule 250 mg PO BID 01/28/21 12/04/21 duloxetine 20 mg capsule,delayed 20 mg PO QDAY 01/28/21 12/04/21 release fluticasone propionate 50 2 spray intranasal QA 01/28/21 12/04/21 mcg/actuation nasal spray,suspension baclofen 10 mg tablet 10 mg PO HS 06/24/21 12/04/21 duloxetine 20 mg capsule,delayed 20 mg PO QDAY 12/04/21 12/04/21 release hydroxyzine HCl 10 mg tablet 10 mg PO Q8H 12/04/21 12/04/21 lidocaine 5 % topical patch 1 patch topical QDAY 12/04/21 12/04/21 linaclotide 145 mcg capsule 145 mcg PO QDAY 12/04/21 12/04/21 (Linzess) triamcinolone acetonide 0.1 % 1 applic topical BID 12/04/21 12/04/21 topical cream Previous Rx's ?Medication ?Instructions ?Recorded ciprofloxacin HCl 500 mg tablet 500 mg PO BID #20 tabs 12/10/21 furosemide 20 mg tablet (Lasix) 20 mg PO Q OTHER DAY #7 tabs 02/13/22 potassium chloride 20 mEq oral 20 meq PO QDAY #14 ea 02/13/22 packet ondansetron 4 mg disintegrating 4 mg PO TID PRN nausea and 04/10/22 tablet vomiting #14 tabs lactulose 10 gram/15 mL (15 mL) 10 g (15 mL) PO QDAY PRN 10/09/22 oral solution constipation #600 mL sulfamethoxazole 800 1 tab PO Q12H #10 tabs 10/31/22 mg-trimethoprim 160 mg tablet (Bactrim DS) azithromycin 500 mg tablet See Rx Instructions PO .COMPLEX #3 06/15/23 tabs famotidine 20 mg tablet (Pepcid) 20 mg PO BID #30 tabs 07/03/23 cefuroxime axetil 500 mg tablet 500 mg PO BID #14 tabs 12/22/23 acetaminophen 500 mg tablet 500 mg PO Q6H PRN pain #30 tabs 04/18/24 (Tylenol Extra Strength) famotidine 20 mg tablet (Pepcid) 20 mg PO QDAY #30 tabs 04/18/24 polyethylene glycol 3350 17 4 g PO QDAY #238 grams 04/18/24 gram/dose oral powder (GentleLax) ibuprofen 600 mg tablet 600 mg PO Q8H PRN fever or pain 10/20/24 #30 tabs nirmatrelvir 150 mg-ritonavir 100 See Rx Instructions PO .COMPLEX 10/20/24 mg tablets in a dose pack #20 tabs (Paxlovid) benzonatate 100 mg capsule 100 mg PO BID PRN cough #20 caps 12/09/24 Allergies Allergy/AdvReac Type Severity Reaction Status Date / Time ampicillin Allergy Severe Diarrhea Verified 12/09/24 11:08 codeine Allergy Severe Abdominal Verified 12/09/24 11:08 Pain Milk Containing Products Allergy Severe Abdominal Verified 12/09/24 11:08 (Dairy) Pain morphine Allergy Severe ER GIVEN Verified 12/09/24 11:08 09/11/08 22:45 -NO PROB. CONT MONITOR diazepam AdvReac Severe Vomiting Verified 12/09/24 11:08 hydrocodone AdvReac Severe ANXIETY Verified 12/09/24 11:08 Review of Systems Review of Systems Systems Reviewed: All systems reviewed, normal except as documented Past Medical History Past Medical History CARDIAC: Positive Cardiac Disorders, Coronary Artery Disease, Peripheral Vascular Disease, Hypercholesterolemia, Hypertension and Hypotension RESPIRATORY: Positive Bronchitis GASTROINTESTINAL: Positive Gastrointestinal Disorders, Pancreatitis, Gall Bladder Disease, Colitis, Diverticulitis, Hiatal Hernia, Hemorrhoids and Gastroesophageal Reflux Disease MUSCULOSKELETAL: Positive Musculoskeletal Disorders, Myasthenia Gravis, Arthritis and Osteoporosis ENT: Positive Cataracts and Glaucoma ENDOCRINE: Positive Endocrine Disorders and Diabetes Mellitus Type 2 PSYCHO/SOCIAL: Positive Depression and Anxiety OTHER HISTORY: Positive Hospitalization, Autoimmune Disease, Falls, Blood Transfusions, Chicken Pox, Measles and Mumps Family History FAMILY HISTORY: Positive Family Cardiac Disorders, Family Cancer and Family Surgery Surgical History SURGICAL: Positive Cardiac Surgery, Coronary Stent, Angiogram, Tonsillectomy, Abdominal Surgery and Hysterectomy Social History SMOKING STATUS: Never smoker SUBSTANCE USE: does not use ALCOHOL: Never ED Exam Narrative Physical exam: GENERAL APPEARANCE: AxOx4, generally well-appearing, no acute distress. HEENT: NC, AT. MMM. EOMI, clear conjunctiva, oropharynx clear. NECK: Supple without lymphadenopathy. No stiffness or restricted ROM. HEART: Normal rate and regular rhythm, normal S1/S1, no m/r/g LUNGS: CTAB, moving air well. No crackles or wheezes are heard. ABDOMEN: Soft, nontender, nondistended with good bowel sounds heard. BACK: No midline C/T/L spine pain or deformity, No CVAT, no obvious deformity. EXTREMITIES: Without cyanosis, clubbing or edema. MUSCULOSKELETAL: FROM of all major joints, no chest tenderness NEUROLOGICAL: Grossly nonfocal. Alert and oriented, moving all 4 extremities. CN not formally tested but appear grossly intact. Observed to ambulate with normal gait. Skin: Warm and dry without any rash. Course Quality Measures none Orders Category Date Time Status Bedside COVID-19 Antigen Test NOW Care 12/09/24 11:40 Active Bedside Influenza A&B Antigen Test NOW Care 12/09/24 11:40 Completed EKG (ED ONLY) *Do not use* NOW Care 12/09/24 11:[address] head/brain wo con Stat Exams 12/09/24 11:40 Completed EKG (ED Only) Stat Exams 12/09/24 11:40 Draft XR chest 2V Stat Exams 12/09/24 11:40 Completed B-Type Natriuretic Peptide Stat Lab 12/09/24 12:09 Completed CBC Stat Lab 12/09/24 12:09 Completed Comprehensive Metabolic Panel Stat Lab 12/09/24 12:09 Completed Lipase Stat Lab 12/09/24 12:09 Completed Magnesium Stat Lab 12/09/24 12:09 Completed Partial Thromboplastin Time Stat Lab 12/09/24 12:09 Completed Prothrombin Time with INR Stat Lab 12/09/24 12:09 Completed Troponin I Stat Lab 12/09/24 12:09 Completed Vital Signs Vital signs: Vital Signs Temperature 98.5 F 12/09/24 11:13 Pulse Rate 93 12/09/24 11:13 Respiratory Rate 19 12/09/24 11:13 Blood Pressure 105/58 L 12/09/24 11:13 Pulse Oximetry (%) 97 12/09/24 11:13 Oxygen Delivery Method Room Air 12/09/24 11:13 Upper Respiratory Infection MDM Narrative MDM Narrative:: I, Holli Valerio am scribing for and in the presence of Dr. Moraes. Patient data External records reviewed:: [facility] previous records (Reviewed last ED visit dated 11/28/24, discharged with the following: Abrasion) Clinical information provided by:: patient Social determinants that could affect healthcare access:: none Patient has the following chronic illnesses:: CAD s/p stents, diabetes type 2, hypercholesterolemia, GERD, and hysterectomy How is presenting disease/condition affected by chronic disease/condition?: exacerbated by Evaluation data The following diagnostics were reviewed and interpreted by me:: lab results, radiology exam(s) and EKG tracing(s) Lab and/or radiology exams considered but not ordered:: none Interpretation Summary: Procedure(s): XR chest 2V Accession Number(s): [id number] cc: Demian De Paz MD; Bong Batista MD; [facility] Examination: AP lateral chest 2 views Technique: Upright AP lateral chest 2 views Exam date and time: December 09, 2024 1113 hrs. Comparison October 20, 2024 Indications: Chest pain beginning 3 days ago. Findings: Mild vascular congestion. No lobar pneumonia No pulmonary edema Impression: Mild vascular congestion Dictated By: Demian De Paz MD Procedure(s): [facility] head[facility] Accession Number(s): [id number] cc: Demian De Paz MD; Bong Batista MD; Roselia ([facility]~ Examination: CT brain head without contrast. 2-D sagittal coronal reconstructions Date and time of exam:December 09, 2024 1150 hrs. Indications: Dizziness today CTDI: vol (mGy):50.8 DLP: (mGycm):976 Technique: Multiple CT axial sections of the brain have been obtained, 5 mm slice thickness. Contrast has not been administered. 2-D sagittal, coronal reconstructions have been obtained Low dose protocols were performed. One or more of the following dose reduction techniques were used; automated exposure control, adjustment of the mA and/or KV according to patient size, use of iterative reconstruction technique. Findings: No significant ventricular enlargement. Intra-axial or extra-axial hemorrhage density is not seen. No mass effect or midline shift Basal cisterns are not remarkable. Fourth ventricle is midline. Cranial vault intact. Significant ethmoid sinusitis Impression: Negative for acute hemorrhage, mass effect or midline shift As clinically warranted, consider brain MRI follow-up Dictated By: Demian De Paz MD Medications / Prescriptions Medications or Prescriptions considered but not ordered:: none Medication administrations:: see above if any Discharge Plan Plan Patient Disposition: HOME (Self Care) Patient condition on transfer: Stable Prescriptions/Referrals Prescriptions/Med Rec: New benzonatate 100 mg capsule 100 mg PO BID PRN (Reason: cough) Qty: 20 0RF No Action gabapentin 100 MG capsule 100 mg PO BID Qty: 0 clopidogrel 75 mg Tablet 75 mg PO QDAY duloxetine 20 mg Capsule,Delayed Release(Dr/Ec) 20 mg PO QDAY docusate sodium 250 mg Capsule 250 mg PO BID alendronate 35 mg tablet 35 mg PO QWEEK Patient Comments: TAKE 1 TABLET BY MOUTH ONCE A WEEK IN THE MORNING AT LEAST 30MIN BEFORE FIRST MEAL,DRINK OR MED Rx Instructions: wednesday fluticasone propionate 50 mcg/actuation spray,suspension 2 spray INTRANASAL QAM Patient Comments: SPRAY 2 SPRAYS INTO EACH NOSTRIL EVERY DAY triamcinolone acetonide 0.1 % cream 1 applic TOPICAL BID lidocaine 5 % adhesive patch,medicated 1 patch TOPICAL QDAY Patient Comments: APPLY 1 PATCH BY TOPICAL ROUTE ONCE DAILY (MAY WEAR UP TO 12HOURS.) hydroxyzine HCl 10 mg tablet 10 mg PO Q8H Patient Comments: TAKE 1 TABLET BY MOUTH EVERY 8 HOURS NEEDED FOR ITCHING duloxetine 20 mg capsule,delayed release(DR/EC) 20 mg PO QDAY Linzess 145 mcg capsule 145 mcg PO QDAY furosemide [Lasix] 20 mg tablet 20 mg PO Q OTHER DAY Qty: 7 0RF potassium chloride 20 mEq packet 20 meq PO QDAY Qty: 14 0RF ondansetron 4 mg tablet,disintegrating 4 mg PO TID PRN (Reason: nausea and vomiting) Qty: 14 0RF loratadine 10 mg Tablet 10 mg PO QAM ezetimibe [Zetia] 10 mg Tablet 10 mg PO DAILY baclofen 10 mg tablet 10 mg PO HS Patient Comments: TAKE 1 TABLET BY MOUTH EVERY DAY AT BEDTIME NEEDED FOR MUSCLE SPASMS ciprofloxacin HCl 500 mg tablet 500 mg PO BID Qty: 20 0RF lactulose 10 gram/15 mL (15 mL) solution 10 g PO QDAY PRN (Reason: constipation) Qty: 600 0RF azithromycin 500 mg tablet See Rx Instructions .ROUTE .COMPLEX Qty: 3 0RF Rx Instructions: For 500 mg dose pack: take 500 mg once daily for 3 days famotidine [Pepcid] 20 mg tablet 20 mg PO BID Qty: 30 0RF cefuroxime axetil 500 mg tablet 500 mg PO BID Qty: 14 0RF Paxlovid 150-100 mg tablets,dose pack See Rx Instructions .ROUTE .COMPLEX Qty: 20 0RF Rx Instructions: take ONE 150 mg tablet of nirmatrelvir with ONE 100 mg tablet of ritonavir twice daily for 5 days ibuprofen 600 mg tablet 600 mg PO Q8H PRN (Reason: fever or pain) Qty: 30 0RF sulfamethoxazole-trimethoprim [Bactrim DS] 800-160 mg tablet 1 tab PO Q12H Qty: 10 0RF polyethylene glycol 3350 [GentleLax] 17 gram/dose powder 4 g PO QDAY Qty: 238 0RF famotidine [Pepcid] 20 mg tablet 20 mg PO QDAY Qty: 30 0RF acetaminophen [Tylenol Extra Strength] 500 mg tablet 500 mg PO Q6H PRN (Reason: pain) Qty: 30 0RF Referrals: Bong Batista MD [Primary Care Provider] - In 1 week Problem List Clinical Impression: Postnasal drip Patient/Caregiver Discharge Instructions Additional Instructions: Continue home medications as prescribed. Follow up with PCP, ENT Dr. Martinez and cardiology Dr. Mcbride within 1 week. Stop using nasal fluticasone until you see ENT. Use walker or cane every time you ambulate. Return to the ED if symptoms recur or worsen. Print Language: Armenian Stand Alone Forms: [employer] Award Info., Patient Portal Info Letter
[2024-12-09 18:02] VITALS: BP 101/66; PULSE 80; RESP 18; TEMP 37.1; O2SAT 98
== END 2024-12-09 18:02 | disposition home or self-care (01) ==
PROVIDERS: Nurse Practitioner Primary Care; Emergency Provider Emergency Medicine; PCP Family Medicine
DX: J32.9 Chronic sinusitis, unspecified (principal); R09.82 Postnasal drip; I25.10 Atherosclerotic heart disease of native coronary artery without angina pectoris; E11.9 Type 2 diabetes mellitus without complications; Z86.16 Personal history of COVID-19; Z95.5 Presence of coronary angioplasty implant and graft
CPT/HCPCS: 36415; 70450; 71046; 80053; 83690; 83735; 83880; 84484; 85025; 85610; 85730; 87400; 87811; 93005; 99284

== ENCOUNTER → 2024-12-12 | Outpatient (CLI) | payer OTHER, MEDICAID, SELFPAY | END | disposition home or self-care (01) | LOC: SLDO 16:31 | PROVIDERS: PCP Family Medicine; Referring Provider Family Medicine; Visit Provider Family Medicine | DX: N39.0 Urinary tract infection, site not specified (principal) | CPT/HCPCS: 87086 ==

== ENCOUNTER 2025-04-14 21:30 | Emergency (ER) | payer OTHER, MEDICAID, SELFPAY ==
[2025-04-14 21:39] VITALS: BP 107/62; PULSE 84; RESP 16; TEMP 36.9; O2SAT 97
--- NOTE | 2025-04-14 21:40 | XR_ITS ---
Examination: CT abdomen and pelvis without contrast. Coronal 3-D reconstructions. Sagittal 2-D reconstructions. Date and time of exam:April 14, 2025 1012 hours INDICATIONS: Abdominal pain diarrhea vomiting today COMPARISON: November 27, 2024 CTDI: vol (mGy): 6.61 DLP: (mGycm): 349 Technique: Axial images of the abdomen have been obtained, 3 mm slice thickness Intravenous contrast material has not been administered. Low dose protocols were performed. One or more of the following dose reduction techniques were used; automated exposure control, adjustment of the mA and/or KV according to patient size, use of iterative reconstruction technique. Findings: Small liver calcifications No focal liver lesions Absent gallbladder Spleen not enlarged No pancreatic or adrenal mass 8 mm fat-containing umbilical hernia defect No renal or ureteral calculi, no hydronephrosis No CT findings of appendicitis bowel obstruction or diverticulitis Contracted urinary bladder No pelvic mass Severe osteopenia IMPRESSION: No renal or ureteral calculi, no hydronephrosis No CT findings of appendicitis bowel obstruction or diverticulitis
--- NOTE | 2025-04-14 21:41 | PD.EDRME ---
Rapid Medical Screening Exam RME Arrival date/time: 04/14/25 21:30 This is a case of 79-year-old female who came in with abdominal pain nausea vomiting diarrhea since patient was recently started on 2 antibiotics for bronchitis since then patient started the symptoms worsening of the symptoms the son decided to bring patient here in the emergency room Chief Complaint: Nausea/Vomiting/Diarrhea Time Seen by Provider: 04/14/25 21:40 Vital signs: Vital Signs Temperature 98.5 F 04/14/25 21:39 Pulse Rate 84 04/14/25 21:39 Respiratory Rate 16 04/14/25 21:39 Blood Pressure 107/62 04/14/25 21:39 Pulse Oximetry (%) 97 04/14/25 21:39 Oxygen Delivery Method Room Air 04/14/25 21:39
[2025-04-14] MEDS: ONDANSETRON ODT 4 MG TABRAP PO (22:34)
[2025-04-14 22:41] LABS: Collection Type, Urine Clean Catch
[2025-04-14 22:44] LABS: Basophils # (Auto) 0.1 Thou/mm3 (0.0-0.2); Basophils % (Auto) 1 % (0-2.5); Eosinophils # (Auto) 0.1 Thou/mm3 (0.0-0.5); Eosinophils % (Auto) 2 % (0-10); Hematocrit 35.9 % (36.0-46.0); Hemoglobin 12.0 g/dL (12.0-16.0); Immature Granulocytes Auto 0.01 Thou/mm3 (0.00-0.00); Lymphocytes # (Auto) 1.3 Thou/mm3 (1.0-4.8); Lymphocytes % (Auto) 20 % (10-50); Mean Corpuscular HGB Conc 33.4 g/dl (31.0-37.0); Mean Corpuscular Hemoglobin 30.0 pg (25.0-35.0); Mean Corpuscular Volume 90 fL (80-100); Monocytes # (Auto) 0.7 Thou/mm3 (0.0-0.8); Monocytes % (Auto) 11 % (0-12); Neutrophils # (Auto) 4.4 Thou/mm3 (1.8-7.7); Neutrophils % (Auto) 66 % (37-80); Nucleated Red Blood Cell # 0.00 Thou/mm3 (0.00-0.00); Nucleated Red Blood Cell % 0 /100 WBC (0); Platelet Count 142 Thou/mm3 (140-440); RDW Standard Deviation 43.7 fL (36.4-46.3); Red Blood Count 4.00 Miln/mm3 (4.00-5.20); White Blood Count 6.7 Thou/mm3 (3.6-11.0)
[2025-04-14 22:45] LABS: Bilirubin,Urine Negative (Negative); Blood,Urine Trace (Negative); Clarity,Urine Clear (Clear/Hazy); Color,Urine Lt-Yellow (Lt Yel-Yel); Glucose, Urine Trace (Negative); Ketones,Urine Negative (Negative); Leukocyte Esterase,Urine Positive (Negative); Nitrite,Urine Negative (Negative); PH,Urine 5.5 (5.0-7.0); Protein,Urine Negative (Neg - Trace); RBC,Urine 3 /hpf (0-3); Specific Gravity,Urine 1.016 (1.001-1.035); Squamous Epithelial Cell,Urine 1 /hpf (0-5); Urobilinogen,Urine Negative mg/dL (0.0-1.0); WBC,Urine 6 /hpf (0-5)
[2025-04-14 23:33] LABS: Alanine Aminotransferase 23 U/L (10-49); Albumin, Serum 3.7 gm/dL (3.4-4.8); Albumin/Globulin Ratio 1.4 (1.2-2.2); Alkaline Phosphatase 115 U/L (46-116); Anion Gap 7 (7-16); Aspartate Amino Transferase 28 U/L (0-34); BUN/Creatinine Ratio 17 Ratio (12-20); Bilirubin,Total 0.8 mg/dL (0.3-1.2); Blood Urea Nitrogen 12 mg/dL (9-23); Calcium 9.2 mg/dL (8.3-10.6); Calcium (Corrected) 9.4 mg/dL (8.5-10.1); Carbon Dioxide 26.8 mMol/L (20.0-31.0); Chloride 105 mMol/L (98-107); Creatinine (Component) 0.7 mg/dL (0.6-1.3); Globulin 2.7 gm/dL (2.3-3.5); Glucose 224 mg/dL (74-106); Osmolality,Calculated 284 (275-295); Potassium 3.6 mMol/L (3.4-5.1); Sodium 139 mMol/L (136-145); Total Protein 6.4 gm/dL (5.7-8.2); eGFR > 60 See Note
[2025-04-14 23:43] LABS: Lipase 16 U/L (12-53)
[2025-04-15 00:33] VITALS: BP 92/57; PULSE 71; RESP 16; TEMP 36.6; O2SAT 97
[2025-04-15 00:57] VITALS: BP 104/70; PULSE 76; RESP 16; O2SAT 99
--- NOTE | 2025-04-15 01:40 | PD.EDNV ---
Nausea/Vomit./Diarrhea-RME/HPI General Chief complaint: Nausea/Vomiting/Diarrhea Stated complaint: DIARRHEA,VOMITING Time Seen by Provider: 04/14/25 21:40 Arrival date/time: 04/14/25 21:30 RME / HPI RME / HPI Narrative: 04/14/25 21:30 This is a case of 79-year-old female who came in with abdominal pain nausea vomiting diarrhea since patient was recently started on 2 antibiotics for bronchitis since then patient started the symptoms worsening of the symptoms the son decided to bring patient here in the emergency room DR. BLUE MAIN ED EVALUATION: 79 y/o female with Hx of GERD, Colitis, and Diverticulitis presents to ED c/o diarrhea, nausea, and vomiting s/p completion of ABX regimen x 3 days ago. Patent was recently diagnosed with Bronchitis and was prescribed ABX for 10 days. After continuing with a productive cough, PCP prescribed another ABX regimen which patient discontinued 1 day ago on her own accord. Denies any tarry or bloody stool. Patient has had 1 episode of diarrhea since arriving at ED. No other concerns or complaints expressed at this time. Related Data Home Medications ?Medication ?Instructions ?Recorded ?Confirmed gabapentin 100 mg capsule 100 mg PO BID #0 caps 01/05/15 12/04/21 ezetimibe 10 mg tablet (Zetia) 10 mg PO DAILY 12/21/18 12/04/21 loratadine 10 mg tablet 10 mg PO QA 12/21/18 12/04/21 alendronate 35 mg tablet 35 mg PO QWEEK 01/28/21 12/04/21 clopidogrel 75 mg tablet 75 mg PO QDAY 01/28/21 12/04/21 docusate sodium 250 mg capsule 250 mg PO BID 01/28/21 12/04/21 duloxetine 20 mg capsule,delayed 20 mg PO QDAY 01/28/21 12/04/21 release fluticasone propionate 50 2 spray intranasal QA 01/28/21 12/04/21 mcg/actuation nasal spray,suspension baclofen 10 mg tablet 10 mg PO HS 06/24/21 12/04/21 duloxetine 20 mg capsule,delayed 20 mg PO QDAY 12/04/21 12/04/21 release hydroxyzine HCl 10 mg tablet 10 mg PO Q8H 12/04/21 12/04/21 lidocaine 5 % topical patch 1 patch topical QDAY 12/04/21 12/04/21 linaclotide 145 mcg capsule 145 mcg PO QDAY 12/04/21 12/04/21 (Linzess) triamcinolone acetonide 0.1 % 1 applic topical BID 12/04/21 12/04/21 topical cream Previous Rx's ?Medication ?Instructions ?Recorded ciprofloxacin HCl 500 mg tablet 500 mg PO BID #20 tabs 12/10/21 furosemide 20 mg tablet (Lasix) 20 mg PO Q OTHER DAY #7 tabs 02/13/22 potassium chloride 20 mEq oral 20 meq PO QDAY #14 ea 02/13/22 packet ondansetron 4 mg disintegrating 4 mg PO TID PRN nausea and 04/10/22 tablet vomiting #14 tabs lactulose 10 gram/15 mL (15 mL) 10 g (15 mL) PO QDAY PRN 10/09/22 oral solution constipation #600 mL sulfamethoxazole 800 1 tab PO Q12H #10 tabs 10/31/22 mg-trimethoprim 160 mg tablet (Bactrim DS) azithromycin 500 mg tablet See Rx Instructions PO .COMPLEX #3 06/15/23 tabs famotidine 20 mg tablet (Pepcid) 20 mg PO BID #30 tabs 07/03/23 cefuroxime axetil 500 mg tablet 500 mg PO BID #14 tabs 12/22/23 acetaminophen 500 mg tablet 500 mg PO Q6H PRN pain #30 tabs 04/18/24 (Tylenol Extra Strength) famotidine 20 mg tablet (Pepcid) 20 mg PO QDAY #30 tabs 04/18/24 polyethylene glycol 3350 17 4 g PO QDAY #238 grams 04/18/24 gram/dose oral powder (GentleLax) ibuprofen 600 mg tablet 600 mg PO Q8H PRN fever or pain 10/20/24 #30 tabs nirmatrelvir 150 mg (10)-ritonavir See Rx Instructions PO .COMPLEX 10/20/24 100 mg (10) tablets in a dose pack #20 tabs (Paxlovid) benzonatate 100 mg capsule 100 mg PO BID PRN cough #20 caps 12/09/24 ondansetron 4 mg disintegrating 4 mg PO Q6H PRN nausea and 04/15/25 tablet vomiting #20 tabs Allergies Allergy/AdvReac Type Severity Reaction Status Date / Time ampicillin Allergy Severe Diarrhea Verified 04/14/25 21:31 codeine Allergy Severe Abdominal Verified 04/14/25 21:31 Pain Milk Containing Products Allergy Severe Abdominal Verified 04/14/25 21:31 (Dairy) Pain morphine Allergy Severe ER GIVEN Verified 04/14/25 21:31 09/11/08 22:45 -NO PROB. CONT MONITOR diazepam AdvReac Severe Vomiting Verified 04/14/25 21:31 hydrocodone AdvReac Severe ANXIETY Verified 04/14/25 21:31 Review of Systems Review of Systems Systems Reviewed: All systems reviewed, normal except as documented Past Medical History Past Medical History CARDIAC: Positive Cardiac Disorders, Coronary Artery Disease, Peripheral Vascular Disease, Hypercholesterolemia, Hypertension and Hypotension RESPIRATORY: Positive Bronchitis GASTROINTESTINAL: Positive Gastrointestinal Disorders, Pancreatitis, Gall Bladder Disease, Colitis, Diverticulitis, Hiatal Hernia, Hemorrhoids and Gastroesophageal Reflux Disease MUSCULOSKELETAL: Positive Musculoskeletal Disorders, Myasthenia Gravis, Arthritis and Osteoporosis ENT: Positive Cataracts ENDOCRINE: Positive Endocrine Disorders and Diabetes Mellitus Type 2 PSYCHO/SOCIAL: Positive Depression and Anxiety OTHER HISTORY: Positive Hospitalization, Autoimmune Disease, Falls, Blood Transfusions, Chicken Pox, Measles and Mumps Family History FAMILY HISTORY: Positive Family Cardiac Disorders, Family Cancer and Family Surgery Surgical History SURGICAL: Positive Cardiac Surgery, Coronary Stent, Angiogram, Tonsillectomy, Abdominal Surgery and Hysterectomy ED Exam Narrative Physical exam: Generally patient is alert in no obvious distress abdomen soft bowel sounds present nondistended nontender heart is regular rate and rhythm lungs clear to auscultation equal laterally neurologic exam no focal motor or sensory deficits cranial nerves II through XII grossly intact Course Quality Measures none Orders Category Date Time Status CT abdomen pelvis wo con Stat Exams 04/14/25 21:40 Completed CBC Stat Lab 04/14/25 22:25 Completed Comprehensive Metabolic Panel Stat Lab 04/14/25 22:25 Completed Lipase Stat Lab 04/14/25 22:25 Completed Urinalysis Stat Lab 04/14/25 22:20 Completed Ondansetron Odt [Zofran Odt] Med 04/14/25 21:40 Discontinued 4 mg PO X1 ONE Vital Signs Vital signs: Vital Signs Temperature 98.5 F 04/14/25 21:39 Pulse Rate 84 04/14/25 21:39 Respiratory Rate 16 04/14/25 21:39 Blood Pressure 107/62 04/14/25 21:39 Pulse Oximetry (%) 97 04/14/25 21:39 Oxygen Delivery Method Room Air 04/14/25 21:39 Nausea/Vomiting/Diarrhea MDM Narrative MDM Narrative:: Scribe Attestation: I, Odalis Beth, am scribing for and in the presence of Dr. Blue. Provider Notation: Although this document has been carefully reviewed, there may still be some phonetic and other typographical errors.? These errors are purely grammatical due to imperfections in the software program and should not be construed in any way to? compromise the substance of the patient's medical care during this visit. Patient did not have diarrhea here in the emergency room. She has stopped taking her antibiotic. Abdominal exam was quite benign. There is no electrolyte abnormality. No leukocytosis. CT scan done of the abdomen pelvis without contrast did not show acute abnormality. I interpreted all labs. Patient will be discharged on Zofran to be taken as prescribed. If she is still having diarrhea 2 days from now she needs to return to the emergency room so we can obtain a stool sample and test for C. difficile colitis. Patient data External records reviewed:: [facility] previous records (Reviewed prior ED records from 12/09/24. Patient was seen for Chronic sinusitis.) Clinical information provided by:: patient Social determinants that could affect healthcare access:: none Patient has the following chronic illnesses:: Coronary Artery Disease, Peripheral Vascular Disease, Hypercholesterolemia, Hypertension, Hypotension, Bronchitis, Pancreatitis, Gall Bladder Disease, Colitis, Diverticulitis, Hiatal Hernia, Hemorrhoids, Gastroesophageal Reflux Disease, Myasthenia Gravis, Arthritis, Osteoporosis, Cataracts, Diabetes Mellitus Type 2, Depression and Anxiety How is presenting disease/condition affected by chronic disease/condition?: exacerbated by Evaluation data The following diagnostics were reviewed and interpreted by me:: lab results and radiology exam(s) Lab and/or radiology exams considered but not ordered:: None Interpretation Summary: RADIOLOGY Abdomen/Pelvis CT: Findings: Small liver calcifications No focal liver lesions Absent gallbladder Spleen not enlarged No pancreatic or adrenal mass 8 mm fat-containing umbilical hernia defect No renal or ureteral calculi, no hydronephrosis No CT findings of appendicitis bowel obstruction or diverticulitis Contracted urinary bladder No pelvic mass Severe osteopenia IMPRESSION: No renal or ureteral calculi, no hydronephrosis No CT findings of appendicitis bowel obstruction or diverticulitis Medications / Prescriptions Medications / Prescriptions considered but not ordered:: None Medication administrations:: Medication Administration History Discontinued Medications Ondansetron HCl (Ondansetron Odt 4 Mg Tabrap) 4 mg PO X1 ONE; Protocol Stop: 04/14/25 21:41 Last Admin: 04/14/25 22:34 Dose: 4 mg Documented By: BD See above. Consultations Consultation(s) initiated? (list below): No Diagnosis Nausea Differential Diagnosis: gastroenteritis, clostridium difficile infection, drug-induced nausea and vomiting and dehydration Most likely diagnosis given after review of the tests above:: Vomiting, Diarrhea Admission Indicated Admission indicated?: not indicated Explain why admission is indicated or not indicated:: Patient does not meet admission criteria. Admission Request Was there a request for admission?: No Disposition Plan Disposition Plan: Discharge Discharge Attestation Discharge Attestation: The patient and all family members were given an opportunity to ask questions and understood the discharge instructions. Discharge instructions specifically effects, indications for sooner follow up or return to the emergency department, and the expected course of current diagnosis. Patient condition: Stable Discharge Plan Plan Patient Disposition: HOME (Self Care) Prescriptions/Referrals Prescriptions/Med Rec: New ondansetron 4 mg tablet,disintegrating 4 mg PO Q6H PRN (Reason: nausea and vomiting) Qty: 20 0RF No Action gabapentin 100 MG capsule 100 mg PO BID Qty: 0 clopidogrel 75 mg Tablet 75 mg PO QDAY duloxetine 20 mg Capsule,Delayed Release(Dr/Ec) 20 mg PO QDAY docusate sodium 250 mg Capsule 250 mg PO BID alendronate 35 mg tablet 35 mg PO QWEEK Patient Comments: TAKE 1 TABLET BY MOUTH ONCE A WEEK IN THE MORNING AT LEAST 30MIN BEFORE FIRST MEAL,DRINK OR MED Rx Instructions: wednesday fluticasone propionate 50 mcg/actuation spray,suspension 2 spray INTRANASAL QAM Patient Comments: SPRAY 2 SPRAYS INTO EACH NOSTRIL EVERY DAY triamcinolone acetonide 0.1 % cream 1 applic TOPICAL BID lidocaine 5 % adhesive patch,medicated 1 patch TOPICAL QDAY Patient Comments: APPLY 1 PATCH BY TOPICAL ROUTE ONCE DAILY (MAY WEAR UP TO 12HOURS.) hydroxyzine HCl 10 mg tablet 10 mg PO Q8H Patient Comments: TAKE 1 TABLET BY MOUTH EVERY 8 HOURS NEEDED FOR ITCHING duloxetine 20 mg capsule,delayed release(DR/EC) 20 mg PO QDAY Linzess 145 mcg capsule 145 mcg PO QDAY furosemide [Lasix] 20 mg tablet 20 mg PO Q OTHER DAY Qty: 7 0RF potassium chloride 20 mEq packet 20 meq PO QDAY Qty: 14 0RF ondansetron 4 mg tablet,disintegrating 4 mg PO TID PRN (Reason: nausea and vomiting) Qty: 14 0RF loratadine 10 mg Tablet 10 mg PO QAM ezetimibe [Zetia] 10 mg Tablet 10 mg PO DAILY baclofen 10 mg tablet 10 mg PO HS Patient Comments: TAKE 1 TABLET BY MOUTH EVERY DAY AT BEDTIME NEEDED FOR MUSCLE SPASMS ciprofloxacin HCl 500 mg tablet 500 mg PO BID Qty: 20 0RF lactulose 10 gram/15 mL (15 mL) solution 10 g PO QDAY PRN (Reason: constipation) Qty: 600 0RF azithromycin 500 mg tablet See Rx Instructions .ROUTE .COMPLEX Qty: 3 0RF Rx Instructions: For 500 mg dose pack: take 500 mg once daily for 3 days famotidine [Pepcid] 20 mg tablet 20 mg PO BID Qty: 30 0RF cefuroxime axetil 500 mg tablet 500 mg PO BID Qty: 14 0RF Paxlovid 150-100 mg tablets,dose pack See Rx Instructions .ROUTE .COMPLEX Qty: 20 0RF Rx Instructions: take ONE 150 mg tablet of nirmatrelvir with ONE 100 mg tablet of ritonavir twice daily for 5 days ibuprofen 600 mg tablet 600 mg PO Q8H PRN (Reason: fever or pain) Qty: 30 0RF sulfamethoxazole-trimethoprim [Bactrim DS] 800-160 mg tablet 1 tab PO Q12H Qty: 10 0RF polyethylene glycol 3350 [GentleLax] 17 gram/dose powder 4 g PO QDAY Qty: 238 0RF famotidine [Pepcid] 20 mg tablet 20 mg PO QDAY Qty: 30 0RF acetaminophen [Tylenol Extra Strength] 500 mg tablet 500 mg PO Q6H PRN (Reason: pain) Qty: 30 0RF benzonatate 100 mg capsule 100 mg PO BID PRN (Reason: cough) Qty: 20 0RF Referrals: Bong Batista MD [Primary Care Provider] - In 1 week Problem List Clinical Impression: Diarrhea, Vomiting Patient/Caregiver Discharge Instructions Additional Instructions: Zofran as prescribed. Keep well-hydrated. If you are still having diarrhea in 2 days return to the emergency room for additional testing. Print Language: Tajik Stand Alone Forms: [facility] Award Info., Patient Portal Info Letter
[2025-04-15 01:53] VITALS: BP 115/60; PULSE 75; RESP 16; TEMP 36.7; O2SAT 98
[2025-04-15 05:00] VITALS: BP 101/96; PULSE 89; RESP 18; TEMP 36.7; O2SAT 99
== END 2025-04-15 05:45 | disposition home or self-care (01) ==
PROVIDERS: Nurse Practitioner Family; Emergency Provider Emergency Medicine; PCP Family Medicine
DX: R11.2 Nausea with vomiting, unspecified (principal); R19.7 Diarrhea, unspecified; R10.9 Unspecified abdominal pain
CPT/HCPCS: 36415; 74176; 80053; 81001; 83690; 85025; 99283; Q0162

== ENCOUNTER 2025-04-17 12:08 | Emergency (ER) | payer OTHER, MEDICAID, SELFPAY ==
[2025-04-17 12:09] VITALS: BMI 23.8
[2025-04-17 12:21] VITALS: BP 93/58; BP 96/56; PULSE 80; RESP 18; TEMP 37; O2SAT 98
--- NOTE | 2025-04-17 12:48 | PD.EDNV ---
Nausea/Vomit./Diarrhea-RME/HPI General Chief complaint: Nausea/Vomiting/Diarrhea Stated complaint: DIARRHEA SINCE WEDNESDAY Time Seen by Provider: 04/17/25 12:34 Arrival date/time: 04/17/25 12:08 RME / HPI RME / HPI Narrative: 79 year old female patient presents to the ED for evaluation of diarrhea beginning 3 days ago. Reports stool is loose and dark in color. Accompanied by nausea and intermittent abdominal pain. Mentioned she was evaluated here 3 days ago for similar symptoms. States the work-up was unremarkable and discharged home with Tyron. States the abdominal pain has improved and the diarrhea persists. Denies fever, chills, sweating. Denies chest pain, cough, shortness of breath. Denies vomiting. Denies urinary frequency and urgency. Patient mentioned she just completed a course of antibiotics for bronchitis ~ 1 week ago. Related Data Home Medications ?Medication ?Instructions ?Recorded ?Confirmed gabapentin 100 mg capsule 100 mg PO BID #0 caps 01/05/15 12/04/21 ezetimibe 10 mg tablet (Zetia) 10 mg PO DAILY 12/21/18 12/04/21 loratadine 10 mg tablet 10 mg PO QAM 12/21/18 12/04/21 alendronate 35 mg tablet 35 mg PO QWEEK 01/28/21 12/04/21 clopidogrel 75 mg tablet 75 mg PO QDAY 01/28/21 12/04/21 docusate sodium 250 mg capsule 250 mg PO BID 01/28/21 12/04/21 duloxetine 20 mg capsule,delayed 20 mg PO QDAY 01/28/21 12/04/21 release fluticasone propionate 50 2 spray intranasal QAM 01/28/21 12/04/21 mcg/actuation nasal spray,suspension baclofen 10 mg tablet 10 mg PO HS 06/24/21 12/04/21 duloxetine 20 mg capsule,delayed 20 mg PO QDAY 12/04/21 12/04/21 release hydroxyzine HCl 10 mg tablet 10 mg PO Q8H 12/04/21 12/04/21 lidocaine 5 % topical patch 1 patch topical QDAY 12/04/21 12/04/21 linaclotide 145 mcg capsule 145 mcg PO QDAY 12/04/21 12/04/21 (Linzess) triamcinolone acetonide 0.1 % 1 applic topical BID 12/04/21 12/04/21 topical cream Previous Rx's ?Medication ?Instructions ?Recorded ciprofloxacin HCl 500 mg tablet 500 mg PO BID #20 tabs 12/10/21 furosemide 20 mg tablet (Lasix) 20 mg PO Q OTHER DAY #7 tabs 02/13/22 potassium chloride 20 mEq oral 20 meq PO QDAY #14 ea 02/13/22 packet ondansetron 4 mg disintegrating 4 mg PO TID PRN nausea and 04/10/22 tablet vomiting #14 tabs lactulose 10 gram/15 mL (15 mL) 10 g (15 mL) PO QDAY PRN 10/09/22 oral solution constipation #600 mL sulfamethoxazole 800 1 tab PO Q12H #10 tabs 10/31/22 mg-trimethoprim 160 mg tablet (Bactrim DS) azithromycin 500 mg tablet See Rx Instructions PO .COMPLEX #3 06/15/23 tabs famotidine 20 mg tablet (Pepcid) 20 mg PO BID #30 tabs 07/03/23 cefuroxime axetil 500 mg tablet 500 mg PO BID #14 tabs 12/22/23 acetaminophen 500 mg tablet 500 mg PO Q6H PRN pain #30 tabs 04/18/24 (Tylenol Extra Strength) famotidine 20 mg tablet (Pepcid) 20 mg PO QDAY #30 tabs 04/18/24 polyethylene glycol 3350 17 4 g PO QDAY #238 grams 04/18/24 gram/dose oral powder (GentleLax) ibuprofen 600 mg tablet 600 mg PO Q8H PRN fever or pain 10/20/24 #30 tabs nirmatrelvir 150 mg (10)-ritonavir See Rx Instructions PO .COMPLEX 10/20/24 100 mg (10) tablets in a dose pack #20 tabs (Paxlovid) benzonatate 100 mg capsule 100 mg PO BID PRN cough #20 caps 12/09/24 ondansetron 4 mg disintegrating 4 mg PO Q6H PRN nausea and 04/15/25 tablet vomiting #20 tabs Allergies Allergy/AdvReac Type Severity Reaction Status Date / Time ampicillin Allergy Severe Diarrhea Verified 04/17/25 12:12 codeine Allergy Severe Abdominal Verified 04/17/25 12:12 Pain Milk Containing Products Allergy Severe Abdominal Verified 04/17/25 12:12 (Dairy) Pain morphine Allergy Severe ER GIVEN Verified 04/17/25 12:12 09/11/08 22:45 -NO PROB. CONT MONITOR diazepam AdvReac Severe Vomiting Verified 04/17/25 12:12 hydrocodone AdvReac Severe ANXIETY Verified 04/17/25 12:12 Review of Systems Review of Systems Systems Reviewed: All systems reviewed, normal except as documented Past Medical History Past Medical History CARDIAC: Positive Cardiac Disorders, Coronary Artery Disease, Peripheral Vascular Disease, Hypercholesterolemia, Hypertension and Hypotension RESPIRATORY: Positive Bronchitis GASTROINTESTINAL: Positive Gastrointestinal Disorders, Pancreatitis, Gall Bladder Disease, Colitis, Diverticulitis, Hiatal Hernia, Hemorrhoids and Gastroesophageal Reflux Disease MUSCULOSKELETAL: Positive Musculoskeletal Disorders, Myasthenia Gravis, Arthritis and Osteoporosis ENT: Positive Cataracts and Glaucoma ENDOCRINE: Positive Endocrine Disorders and Diabetes Mellitus Type 2 PSYCHO/SOCIAL: Positive Depression and Anxiety OTHER HISTORY: Positive Hospitalization, Autoimmune Disease, Falls, Blood Transfusions, Chicken Pox, Measles and Mumps Family History FAMILY HISTORY: Positive Family Cardiac Disorders, Family Cancer and Family Surgery Surgical History SURGICAL: Positive Cardiac Surgery, Coronary Stent, Angiogram, Tonsillectomy, Abdominal Surgery and Hysterectomy Social History SMOKING STATUS: Never smoker SUBSTANCE USE: does not use ED Exam Narrative Physical exam: GENERAL APPEARANCE: alert and oriented x 4, well-developed, well-nourished, no acute distress HEENT: Normocephalic, atraumatic; pupils equal, round, reactive to light; EOMI; mucous membranes pink, moist; oropharynx clear NECK: Supple LUNGS: CTABL; no wheezes, no rales, no rhonchi HEART: Regular rate, regular rhythm; normal S1, S2; no murmurs ABDOMEN: non distended; normal BS; soft, no tenderness, no guarding, no rebound; no masses, no organomegaly, no hernia BACK: no CVA tenderness EXTREMITIES: atraumatic; no edema NEUROLOGIC: awake; alert and oriented x4; cranial nerves II-XII grossly intact; no focal sensory or motor deficits PSYCHIATRIC: appropriate mood and affect SKIN: warm, dry, normal color; no rashes Course Quality Measures none Orders Category Date Time Status IV [Insert IV] NOW Care 04/17/25 13:12 Completed CBC Stat Lab 04/17/25 13:02 Completed Clostridium Difficile PCR Stat Lab 04/17/25 Ordered Comprehensive Metabolic Panel Stat Lab 04/17/25 13:02 Completed Lactate (Lactic Acid) Stat Lab 04/17/25 13:02 Completed Lipase Stat Lab 04/17/25 13:02 Completed Magnesium Stat Lab 04/17/25 13:02 Completed Vital Signs Vital signs: Vital Signs Temperature 98.6 F 04/17/25 12:21 Pulse Rate 80 04/17/25 12:21 Respiratory Rate 18 04/17/25 12:21 Blood Pressure 93/58 L 04/17/25 12:21 Pulse Oximetry (%) 98 04/17/25 12:21 Oxygen Delivery Method Room Air 04/17/25 12:21 Pulse ox is 98% on room air which is adequate. Nausea/Vomiting/Diarrhea MDM Narrative MDM Narrative:: Kisha Ellis am scribing for and in the presence of Dr. Orellana. Patient data External records reviewed:: [facility] previous records (I reviewed ED visit on 04/15/2025 for abdominal pain, vomiting, and diarrhea. ) Clinical information provided by:: patient Social determinants that could affect healthcare access:: none Patient has the following chronic illnesses:: CAD s/p stents, diabetes, GERD How is presenting disease/condition affected by chronic disease/condition?: uneffected by Evaluation data The following diagnostics were reviewed and interpreted by me:: lab results Lab and/or radiology exams considered but not ordered:: None Interpretation Summary: no acute findings Medications / Prescriptions Medications / Prescriptions considered but not ordered:: None Medication administrations:: none Consultations Consultation(s) initiated? (list below): No Diagnosis Nausea Differential Diagnosis: gastroenteritis, clostridium difficile infection, drug-induced nausea and vomiting and dehydration Most likely diagnosis given after review of the tests above:: Diarrhea Admission Indicated Admission indicated?: not indicated Admission Request Was there a request for admission?: No Disposition Plan Disposition Plan: Discharge Discharge Attestation Discharge Attestation: The patient and all family members were given an opportunity to ask questions and understood the discharge instructions. Discharge instructions specifically effects, indications for sooner follow up or return to the emergency department, and the expected course of current diagnosis. Patient condition: Stable Discharge Plan Plan Patient Disposition: HOME (Self Care) Prescriptions/Referrals Prescriptions/Med Rec: No Action gabapentin 100 MG capsule 100 mg PO BID Qty: 0 clopidogrel 75 mg Tablet 75 mg PO QDAY duloxetine 20 mg Capsule,Delayed Release(Dr/Ec) 20 mg PO QDAY docusate sodium 250 mg Capsule 250 mg PO BID alendronate 35 mg tablet 35 mg PO QWEEK Patient Comments: TAKE 1 TABLET BY MOUTH ONCE A WEEK IN THE MORNING AT LEAST 30MIN BEFORE FIRST MEAL,DRINK OR MED Rx Instructions: wednesday fluticasone propionate 50 mcg/actuation spray,suspension 2 spray INTRANASAL QAM Patient Comments: SPRAY 2 SPRAYS INTO EACH NOSTRIL EVERY DAY triamcinolone acetonide 0.1 % cream 1 applic TOPICAL BID lidocaine 5 % adhesive patch,medicated 1 patch TOPICAL QDAY Patient Comments: APPLY 1 PATCH BY TOPICAL ROUTE ONCE DAILY (MAY WEAR UP TO 12HOURS.) hydroxyzine HCl 10 mg tablet 10 mg PO Q8H Patient Comments: TAKE 1 TABLET BY MOUTH EVERY 8 HOURS NEEDED FOR ITCHING duloxetine 20 mg capsule,delayed release(DR/EC) 20 mg PO QDAY Linzess 145 mcg capsule 145 mcg PO QDAY furosemide [Lasix] 20 mg tablet 20 mg PO Q OTHER DAY Qty: 7 0RF potassium chloride 20 mEq packet 20 meq PO QDAY Qty: 14 0RF ondansetron 4 mg tablet,disintegrating 4 mg PO TID PRN (Reason: nausea and vomiting) Qty: 14 0RF loratadine 10 mg Tablet 10 mg PO QAM ezetimibe [Zetia] 10 mg Tablet 10 mg PO DAILY baclofen 10 mg tablet 10 mg PO HS Patient Comments: TAKE 1 TABLET BY MOUTH EVERY DAY AT BEDTIME NEEDED FOR MUSCLE SPASMS ciprofloxacin HCl 500 mg tablet 500 mg PO BID Qty: 20 0RF lactulose 10 gram/15 mL (15 mL) solution 10 g PO QDAY PRN (Reason: constipation) Qty: 600 0RF azithromycin 500 mg tablet See Rx Instructions .ROUTE .COMPLEX Qty: 3 0RF Rx Instructions: For 500 mg dose pack: take 500 mg once daily for 3 days famotidine [Pepcid] 20 mg tablet 20 mg PO BID Qty: 30 0RF cefuroxime axetil 500 mg tablet 500 mg PO BID Qty: 14 0RF Paxlovid 150-100 mg tablets,dose pack See Rx Instructions .ROUTE .COMPLEX Qty: 20 0RF Rx Instructions: take ONE 150 mg tablet of nirmatrelvir with ONE 100 mg tablet of ritonavir twice daily for 5 days ibuprofen 600 mg tablet 600 mg PO Q8H PRN (Reason: fever or pain) Qty: 30 0RF sulfamethoxazole-trimethoprim [Bactrim DS] 800-160 mg tablet 1 tab PO Q12H Qty: 10 0RF polyethylene glycol 3350 [GentleLax] 17 gram/dose powder 4 g PO QDAY Qty: 238 0RF famotidine [Pepcid] 20 mg tablet 20 mg PO QDAY Qty: 30 0RF acetaminophen [Tylenol Extra Strength] 500 mg tablet 500 mg PO Q6H PRN (Reason: pain) Qty: 30 0RF benzonatate 100 mg capsule 100 mg PO BID PRN (Reason: cough) Qty: 20 0RF ondansetron 4 mg tablet,disintegrating 4 mg PO Q6H PRN (Reason: nausea and vomiting) Qty: 20 0RF Referrals: Bong Batista MD [Primary Care Provider] - In 1 week Problem List Clinical Impression: Diarrhea Patient/Caregiver Discharge Instructions Education Materials: Treating Diarrhea Print Language: [place] Citizen Stand Alone Forms: [employer] Award Info., Patient Portal Info Letter
[2025-04-17 13:11] LABS: Lactate (Lactic Acid) 1.1 mMol/L (0.4-2.0)
[2025-04-17 13:17] LABS: Basophils # (Auto) 0.0 Thou/mm3 (0.0-0.2); Basophils % (Auto) 1 % (0-2.5); Eosinophils # (Auto) 0.1 Thou/mm3 (0.0-0.5); Eosinophils % (Auto) 1 % (0-10); Hematocrit 36.0 % (36.0-46.0); Hemoglobin 12.4 g/dL (12.0-16.0); Immature Granulocytes Auto 0.03 Thou/mm3 (0.00-0.00); Lymphocytes # (Auto) 0.9 Thou/mm3 (1.0-4.8); Lymphocytes % (Auto) 13 % (10-50); Mean Corpuscular HGB Conc 34.4 g/dl (31.0-37.0); Mean Corpuscular Hemoglobin 30.3 pg (25.0-35.0); Mean Corpuscular Volume 88 fL (80-100); Monocytes # (Auto) 0.6 Thou/mm3 (0.0-0.8); Monocytes % (Auto) 8 % (0-12); Neutrophils # (Auto) 5.7 Thou/mm3 (1.8-7.7); Neutrophils % (Auto) 77 % (37-80); Nucleated Red Blood Cell # 0.00 Thou/mm3 (0.00-0.00); Nucleated Red Blood Cell % 0 /100 WBC (0); Platelet Count 141 Thou/mm3 (140-440); RDW Standard Deviation 42.0 fL (36.4-46.3); Red Blood Count 4.09 Miln/mm3 (4.00-5.20); White Blood Count 7.4 Thou/mm3 (3.6-11.0)
[2025-04-17 13:35] LABS: Alanine Aminotransferase 27 U/L (10-49); Albumin, Serum 3.7 gm/dL (3.4-4.8); Albumin/Globulin Ratio 1.4 (1.2-2.2); Alkaline Phosphatase 105 U/L (46-116); Anion Gap 10 (7-16); Aspartate Amino Transferase 31 U/L (0-34); BUN/Creatinine Ratio 20 Ratio (12-20); Bilirubin,Total 0.7 mg/dL (0.3-1.2); Blood Urea Nitrogen 14 mg/dL (9-23); Calcium 8.8 mg/dL (8.3-10.6); Calcium (Corrected) 9.0 mg/dL (8.5-10.1); Carbon Dioxide 28.5 mMol/L (20.0-31.0); Chloride 104 mMol/L (98-107); Creatinine (Component) 0.7 mg/dL (0.6-1.3); Estimated Creatinine Clearance 50.3 mL/min (>60); Globulin 2.6 gm/dL (2.3-3.5); Glucose 175 mg/dL (74-106); Lipase 16 U/L (12-53); Magnesium 1.8 mg/dL (1.6-2.6); Osmolality,Calculated 287 (275-295); Potassium 3.7 mMol/L (3.4-5.1); Sodium 142 mMol/L (136-145); Total Protein 6.3 gm/dL (5.7-8.2); eGFR > 60 See Note
[2025-04-17 14:01] VITALS: BP 96/54; PULSE 70; RESP 26; TEMP 36.6; O2SAT 97
[2025-04-17 15:54] VITALS: BP 104/70; PULSE 72; RESP 14; O2SAT 98
== END 2025-04-17 15:45 | disposition home or self-care (01) ==
PROVIDERS: Emergency Provider Emergency Medicine; PCP Family Medicine
DX: R19.7 Diarrhea, unspecified (principal)
CPT/HCPCS: 36415; 80053; 81001; 83605; 83690; 83735; 85025; 87493; 99283

== ENCOUNTER → 2025-05-15 | Outpatient (CLI) | payer OTHER, SELFPAY ==
--- NOTE | 2025-05-15 | XR_ITS ---
Examination: Abdomen AP single view Technique: AP portable supine abdomen, single view Exam date and time: May 15, 2025, 1132 hours, comparison October 31, 2024. INDICATIONS: Abdominal pain 1 month. FINDINGS: Very large amounts of stool throughout the entire colon. Surgical clips upper right abdomen. No obstruction. No free air. Moderate narrowing hip joints IMPRESSION: Very large amounts of stool throughout the entire colon
== END | disposition home or self-care (01) ==
LOC: CDIM 10:56
PROVIDERS: PCP Family Medicine; Referring Provider Specialist; Visit Provider Specialist
DX: K59.00 Constipation, unspecified (principal)
CPT/HCPCS: 74018

== ENCOUNTER → 2025-07-27 | Outpatient (CLI) | payer OTHER, SELFPAY ==
--- NOTE | 2025-07-27 08:45 | XR_ITS ---
Examination: Screening digital mammography, bilateral Computer aided detection 3-D breast Tomosynthesis, bilateral Date and time of exam: 07/27/2025, 8:35 a.m. Comparisons: 10/20/2024 Indications: Screening Technique: Nonmagnified MLO, CC views of the breasts to been obtained, reconstructed from 3-D Tomosynthesis images. R2 computer aided detection program utilized for evaluation of suspicious masses and/or abnormal calcifications. 3-D Tomosynthesis images obtained. Technologist: Findings: There are scattered areas of fibroglandular density. No evidence of abnormal masses or suspicious calcifications. Benign vascular calcifications. Impression: BI-RADS category 2: Benign findings Recommend 1 year follow-up mammogram
== END | disposition home or self-care (01) ==
LOC: CDIM 08:09
PROVIDERS: Referring Provider Family Medicine; Visit Provider Family Medicine
DX: Z12.31 Encounter for screening mammogram for malignant neoplasm of breast (principal); R92.323 Mammographic fibroglandular density, bilateral breasts; R92.1 Mammographic calcification found on diagnostic imaging of breast
CPT/HCPCS: 77063; 77067

== ENCOUNTER 2025-09-12 13:46 | Observation (INO) | payer OTHER, MEDICAID, SELFPAY ==
[2025-09-12] VITALS (11 sets, daily range): BP systolic 91–126; BP diastolic 49–70; PULSE 67–90; RESP 16–97; TEMP 36.7–37.1; O2SAT 97–98; BMI 22.7
--- NOTE | 2025-09-12 13:48 | EKG_ITS ---
[facility] Test Date: 2025-09-12 Pat Name: KEVIN SCHUMACHER Department: Room: - Gender: Female Drafter Topographical: : 1945 Requested By: Ori Goins (PLANT MAINTENANCE MANAGER) Order Number: [id number] Reading MD: Ori Goins (PLANT MAINTENANCE MANAGER) Measurements Intervals [place] Rate: 79 P: 73 RI: 121 QRS: -35 QRSD: 72 T: 65 QT: 370 QTc: 424 Interpretive Statements SINUS RHYTHM LEFT AXIS DEVIATION [QRS AXIS < -30] LOW QRS VOLTAGE IN PRECORDIAL LEADS [QRS DEFLECTION < 1.0 mV IN CHEST LEADS] POSSIBLE ANTERIOR MYOCARDIAL INFARCTION , PROBABLY OLD [30 ms Q WAVE IN V3/V4, OR R < 0.2 mV IN V4] Compared to ECG 12/09/2024 11:45:35 No significant changes /store/S0/[id number]/ecg/[id number].pdf
--- NOTE | 2025-09-12 14:25 | XR_ITS ---
Examination: CTA carotids with intravenous contrast CTA brain, head with intravenous contrast. 2-D sagittal, coronal reconstructions. 3-D reconstructions. Exam date and time: 09/12/2025 at 2:45 p.m. CTDI: vol (mGy) 16.6 DLP: (mGycm) 431 CLINICAL HISTORY: Stroke alert, generalized weakness and dizziness today Contrast media: 75 mL of Isovue 370 IV Technique: Multiple CTA axial brain, head carotid images post intravenous contrast injection 70 cc, Isovue-370. 2-D sagittal, coronal reconstructions. 3-D reconstructions, 3-D post processing including vascular maximum intensity projection images. Low dose protocols were performed. One or more of the following dose reduction techniques were used; automated exposure control, adjustment of the mA and/or KV according to patient size, use of iterative reconstruction technique. Findings: There is excellent visualization of the common carotid and internal carotid arteries and the bifurcation in the neck all these vessels appear perfectly normal. The cervical portion and the origin of the right and left vertebral arteries appear perfectly normal, they extend upwards along the clivus forming the basilar artery which appears normal. Within the head, all of the proximal and peripheral portions of the internal carotid, anterior and middle cerebral arteries appear normal on both sides. Likewise in the posterior fossa, the basilar artery and its branches on both right and left sides appear perfectly normal Left there is a small mucous retention cyst in the left maxillary sinus and in the right sphenoid sinus. The upper lung zones appear clear IMPRESSION: 1. The CT angiogram over the cervical and cranial region is entirely normal
--- NOTE | 2025-09-12 14:25 | XR_ITS ---
Examination: CT brain head without contrast. 2-D sagittal coronal reconstructions Date and time of exam: September 12, 2025, 1437 hours INDICATIONS: Stroke alert, onset generalized weakness dizziness onset focal neurologic deficit today COMPARISON: December 09, 2024 CTDI: vol (mGy): 48.5 DLP: (mGycm): 934 Technique: Multiple CT axial sections of the brain have been obtained, 5 mm slice thickness. Contrast has not been administered. 2-D sagittal, coronal reconstructions have been obtained Low dose protocols were performed. One or more of the following dose reduction techniques were used; automated exposure control, adjustment of the mA and/or KV according to patient size, use of iterative reconstruction technique. Findings: No significant ventricular enlargement. Frontal atrophy Intra-axial or extra-axial hemorrhage density is not seen. No mass effect or midline shift Basal cisterns are not remarkable. Fourth ventricle is midline. Cranial vault intact. Impression: Negative for acute hemorrhage, mass effect or midline shift
--- NOTE | 2025-09-12 14:44 | PD.TNEURO ---
Tele Neuro Consultation Consultation Date 09/12/25 Most Recent Vital Signs Last Vital Signs Temp 98.7 F 09/12/25 13:52 Pulse 83 09/12/25 14:13 Resp 20 09/12/25 13:52 BP 126/70 09/12/25 13:52 Pulse Ox 97 09/12/25 13:52 O2 Del Method Room Air 09/12/25 13:52 Consultation Narrative [facility] Patient Name:???Adrianne Larson Date of :???1945 Identification Number:??? Date of Service:???09/12/2025 14:26:02 Diagnosis:?R42 - Dizziness/ Vertigo/ Giddiness Impression: ?79F presented with weakness and dizziness. Hx vertigo but this seems different than normal although it is improving a lot. HCT unremarkable. Rec obtaining orthostatics, rec obtaining a toxic metabolic infectious workup (U/A, COVID/flu +/-RSV, chest xray etc as per ED MD/primary team discretion), ear evaluation by ED attending/primary team, symptomatic treatment of vertigo with fluids and meclizine and if symptoms COMPLETELY resolve can dc home as there would be more of a concern for a peripheral vertigo instead of a CVA. If symptoms don't COMPLETELY resolve would give ASA 81 mg and cont home plavix 81 mg and admit for MRI brain wo imaging to assure no evidence of CVA and TTE. Not a thrombolytic candidate 2/2 declined by patient 2/2 non-debilitating symptoms and alternative etiology for symptoms suspected other than CVA. Not an IR candidate 2/2 NIH low (no severely newly debilitating symptoms and LVO not suspected) but CTA H&N results pending. Our recommendations are outlined below. Recommendations: ? IV Fluids, Normal [place] Sign Out: ? Discussed with Emergency Department Provider Advanced Imaging: Advanced imaging has been ordered. Results pending. Metrics: Last Known Well: 09/12/2025 13:30:00 Arrival Time: 09/12/2025 13:46:00 Activation Time: 09/12/2025 14:26:02 Initial Response Time: 09/12/2025 14:34:34Symptoms: weakness and dizziness. Initial patient interaction: 09/12/2025 14:47:06 NIHSS Assessment Completed: 09/12/2025 14:51:16Patient is not a candidate for Thrombolytic. Thrombolytic Medical Decision: 09/12/2025 15:01:17Patient was not deemed candidate for Thrombolytic because of following reasons: Stroke severity too mild (non-disabling) . Patient/Family declined . CT Head: I personally reviewed all the CT images that were available to me and it showed: no acute pathology ED Physician not notified of diagnostic impression and management plan because MD not available and will call TS for questions History of Present Illness:Patient is a 79 year old Female. Patient was brought by private transportation with symptoms of weakness and dizziness. 79F presented with leaning right and dizziness. Was eating then felt dizzy and then had weakness. She has never had the dizziness like this before. No double or blurred vision. Had no trouble walking with this. She felt like she would fall. Has light dizziness now. She was holding on to things at home. She feels 70% better now. Has nausea. [place] like she was leaning right. Hx vertigo. Has dizziness off and on. Never takes anything for it. Was given something for it at some point though. No changes in doses or changes in meds recently. Ears always feel stuffed. Has tinnitus off and on for a while. No hx recent illness (SOB, fever, chills, CP, new cough, N/V, diarrhea, UTI symptoms etc). Had runny nose, chills for weeks. Uses a cane at baseline and sometimes a walker. LKN: before 1 pm Past Medical History: ?Diabetes Mellitus ?Coronary Artery Disease ?There is no history of Atrial Fibrillation ?There is no history of Stroke Other PMH:? cardiac stents Medications: No Anticoagulant use? Antiplatelet use:?Yes?plavix Reviewed EMR for current medications Allergies:? Reviewed Social History: Smoking: No Alcohol Use: No Drug Use: No Family History: There is no family history of premature cerebrovascular disease pertinent to this consultation ROS : 14 Points Review of Systems was performed and was negative except mentioned in HPI. Past Surgical History: There Is No Surgical History Contributory To Today?s Visit Examination: BP(126/70),?Pulse(83), 1A: Level of Consciousness - Alert; keenly responsive?+ 0 1B: Ask Month and Age - Both Questions Right?+ 0 1C: Blink Eyes & Squeeze Hands - Performs Both Tasks?+ 0 2: Test Horizontal Extraocular Movements - Normal?+ 0 3: Test Visual [place] - No Visual Loss?+ 0 4: Test Facial Palsy (Use Grimace if Obtunded) - Normal symmetry?+ 0 5A: Test Left Arm Motor Drift - No Drift for 10 Seconds?+ 0 5B: Test Right Arm Motor Drift - No Drift for 10 Seconds?+ 0 6A: Test Left Leg Motor Drift - No Drift for 5 Seconds?+ 0 6B: Test Right Leg Motor Drift - No Drift for 5 Seconds?+ 0 7: Test Limb Ataxia (FNF/Heel-Gordillo) - No Ataxia?+ 0 8: Test Sensation - Normal; No sensory loss?+ 0 9: Test Language/Aphasia - Normal; No aphasia?+ 0 10: Test Dysarthria - Normal?+ 0 11: Test Extinction/Inattention - No abnormality?+ 0 NIHSS Score:?0 Pre-Morbid Modified Henry Scale: 3 Points = Moderate disability; requiring some help, but able to walk without assistance This consult was conducted in real time using interactive audio and video technology. Patient was informed of the technology being used for this visit and agreed to proceed. Patient located in hospital and provider located at home/office setting. Patient is being evaluated for possible acute neurologic impairment and high probability of imminent or life-threatening deterioration. I spent total of 40 minutes providing care to this patient, including time for face to face visit via telemedicine, review of medical records, imaging studies and discussion of findings with providers, the patient and/or family. Dr Kike Adams [facility] For Inpatient follow-up with [facility] physician please call [facility] at . As we are not an outpatient service for any post hospital discharge needs please contact the hospital for assistance. If you have any questions for the [facility] physicians or need to reconsult for clinical or diagnostic changes please contact us via [facility] at . Non-radiologist review of imaging performed to assist with emergent clinical decision-making. Remote physician workstations do not possess the same resolution, calibration, or diagnostic capabilities as hospital-based radiology reading stations, and formal radiologist read is necessary. Signature :Magnolia Adams
[2025-09-12 15:01] LABS: Basophils # (Auto) 0.0 Thou/mm3 (0.0-0.2); Basophils % (Auto) 1 % (0-2.5); Eosinophils # (Auto) 0.1 Thou/mm3 (0.0-0.5); Eosinophils % (Auto) 2 % (0-10); Hematocrit 35.6 % (36.0-46.0); Hemoglobin 12.2 g/dL (12.0-16.0); Immature Granulocytes Auto 0.04 Thou/mm3 (0.00-0.00); Lymphocytes # (Auto) 1.2 Thou/mm3 (1.0-4.8); Lymphocytes % (Auto) 18 % (10-50); Mean Corpuscular HGB Conc 34.3 g/dl (31.0-37.0); Mean Corpuscular Hemoglobin 30.5 pg (25.0-35.0); Mean Corpuscular Volume 89 fL (80-100); Monocytes # (Auto) 0.6 Thou/mm3 (0.0-0.8); Monocytes % (Auto) 9 % (0-12); Neutrophils # (Auto) 4.8 Thou/mm3 (1.8-7.7); Neutrophils % (Auto) 70 % (37-80); Nucleated Red Blood Cell # 0.00 Thou/mm3 (0.00-0.00); Nucleated Red Blood Cell % 0 /100 WBC (0); Platelet Count 144 Thou/mm3 (140-440); RDW Standard Deviation 40.6 fL (36.4-46.3); Red Blood Count 4.00 Miln/mm3 (4.00-5.20); White Blood Count 6.9 Thou/mm3 (3.6-11.0)
[2025-09-12 15:10] LABS: INR 1.0 (0.9-1.3); Partial Thromboplastin Time 25.9 Seconds (22.0-36.0); Prothrombin Time 11.1 Seconds (9.0-12.2)
[2025-09-12 15:14] LABS: Alanine Aminotransferase 41 U/L (10-49); Albumin, Serum 3.7 gm/dL (3.4-4.8); Albumin/Globulin Ratio 1.3 (1.2-2.2); Alcohol, Blood Medical < 3.0 mg/dL (0-10.0); Alkaline Phosphatase 147 U/L (46-116); Anion Gap 7 (7-16); Aspartate Amino Transferase 42 U/L (0-34); BUN/Creatinine Ratio 23 Ratio (12-20); Bilirubin,Total 0.4 mg/dL (0.3-1.2); Blood Urea Nitrogen 18 mg/dL (9-23); Calcium 8.7 mg/dL (8.3-10.6); Calcium (Corrected) 8.9 mg/dL (8.5-10.1); Carbon Dioxide 28.8 mMol/L (20.0-31.0); Chloride 105 mMol/L (98-107); Creatinine (Component) 0.8 mg/dL (0.6-1.3); Globulin 2.9 gm/dL (2.3-3.5); Glucose 203 mg/dL (74-106); Magnesium 2.1 mg/dL (1.6-2.6); Osmolality,Calculated 289 (275-295); Potassium 4.2 mMol/L (3.4-5.1); Sodium 141 mMol/L (136-145); Total Protein 6.6 gm/dL (5.7-8.2); Troponin I < 0.002 ng/mL (0.0-0.045); eGFR > 60 See Note
[2025-09-12 15:29] LABS: B-Type Natriuretic Peptide 178 pg/mL (0-100)
[2025-09-12 15:29] LABS: Collection Type, Urine Catheter; Squamous Epithelial Cell,Urine 0 /hpf (0-5)
[2025-09-12 15:33] LABS: Bilirubin,Urine Negative (Negative); Blood,Urine Negative (Negative); Clarity,Urine Clear (Clear/Hazy); Color,Urine Colorless (Lt Yel-Yel); Glucose, Urine Negative (Negative); Ketones,Urine Negative (Negative); Leukocyte Esterase,Urine Negative (Negative); Nitrite,Urine Negative (Negative); PH,Urine 7.0 (5.0-7.0); Protein,Urine Negative (Neg - Trace); RBC,Urine 2 /hpf (0-3); Specific Gravity,Urine 1.013 (1.001-1.035); Urobilinogen,Urine Negative mg/dL (0.0-1.0); WBC,Urine < 1 /hpf (0-5)
[2025-09-12 15:49] LABS: Amphetamine/Methamp Scrn,U Negative (Negative); Barbiturate Screen,Urine Negative (Negative); Benzodiazepines Screen,Urine Negative (Negative); Benzoylecgonine Screen, Ur Negative (Negative); Fentanyl Screen,Urine Negative (Negative); Opiate Screen,Urine Negative (Negative); THC Screen,Urine Negative (Negative)
[2025-09-12] MEDS: SODIUM CHLORIDE 0.9% 1000 ML 1,000 ML 100 ML IV (15:55)
--- NOTE | 2025-09-12 16:30 | PD.EDDIZZY ---
ED Dizzyness RME/HPI General Chief Complaint: Dizziness Stated Complaint: DIZZY, WEAK, NAUSEA, SHAKY Time Seen by Provider: 09/12/25 14:20 Arrival date/time: 09/12/25 13:46 Limitations: no limitations RME / HPI RME / HPI Narrative: 79 year old female with history of diabetes presents to the ED for evaluation of dizziness today. The patient reports her glucose this morning was 75. At approximately 1:00 PM, while preparing to eat, she developed acute-onset dizziness described as a room-spinning sensation in a counterclockwise direction. She was unable to ambulate due to dizziness and generalized weakness. She reports intermittent paresthesias, which she states are chronic and unchanged today. She denies any speech changes. She did not recheck her blood glucose at the time of symptom onset and presented for evaluation. The dizziness lasted several minutes and has improved, though she continues to feel overall weakness. Related Data Home Medications ?Medication ?Instructions ?Recorded ?Confirmed gabapentin 100 mg capsule 100 mg PO BID #0 caps 01/05/15 12/04/21 ezetimibe 10 mg tablet (Zetia) 10 mg PO DAILY 12/21/18 12/04/21 loratadine 10 mg tablet 10 mg PO QAM 12/21/18 12/04/21 alendronate 35 mg tablet 35 mg PO QWEEK 01/28/21 12/04/21 clopidogrel 75 mg tablet 75 mg PO QDAY 01/28/21 12/04/21 docusate sodium 250 mg capsule 250 mg PO BID 01/28/21 12/04/21 duloxetine 20 mg capsule,delayed 20 mg PO QDAY 01/28/21 12/04/21 release fluticasone propionate 50 2 spray intranasal QAM 01/28/21 12/04/21 mcg/actuation nasal spray,suspension baclofen 10 mg tablet 10 mg PO HS 06/24/21 12/04/21 duloxetine 20 mg capsule,delayed 20 mg PO QDAY 12/04/21 12/04/21 release hydroxyzine HCl 10 mg tablet 10 mg PO Q8H 12/04/21 12/04/21 lidocaine 5 % topical patch 1 patch topical QDAY 12/04/21 12/04/21 linaclotide 145 mcg capsule 145 mcg PO QDAY 12/04/21 12/04/21 (Linzess) triamcinolone acetonide 0.1 % 1 applic topical BID 12/04/21 12/04/21 topical cream Previous Rx's ?Medication ?Instructions ?Recorded ciprofloxacin HCl 500 mg tablet 500 mg PO BID #20 tabs 12/10/21 furosemide 20 mg tablet (Lasix) 20 mg PO Q OTHER DAY #7 tabs 02/13/22 potassium chloride 20 mEq oral 20 meq PO QDAY #14 ea 02/13/22 packet ondansetron 4 mg disintegrating 4 mg PO TID PRN nausea and 04/10/22 tablet vomiting #14 tabs lactulose 10 gram/15 mL (15 mL) 10 g (15 mL) PO QDAY PRN 10/09/22 oral solution constipation #600 mL sulfamethoxazole 800 1 tab PO Q12H #10 tabs 10/31/22 mg-trimethoprim 160 mg tablet (Bactrim DS) azithromycin 500 mg tablet See Rx Instructions PO .COMPLEX #3 06/15/23 tabs famotidine 20 mg tablet (Pepcid) 20 mg PO BID #30 tabs 07/03/23 cefuroxime axetil 500 mg tablet 500 mg PO BID #14 tabs 12/22/23 acetaminophen 500 mg tablet 500 mg PO Q6H PRN pain #30 tabs 04/18/24 (Tylenol Extra Strength) famotidine 20 mg tablet (Pepcid) 20 mg PO QDAY #30 tabs 04/18/24 polyethylene glycol 3350 17 4 g PO QDAY #238 grams 04/18/24 gram/dose oral powder (GentleLax) ibuprofen 600 mg tablet 600 mg PO Q8H PRN fever or pain 10/20/24 #30 tabs nirmatrelvir 150 mg (10)-ritonavir See Rx Instructions PO .COMPLEX 10/20/24 100 mg (10) tablets in a dose pack #20 tabs (Paxlovid) benzonatate 100 mg capsule 100 mg PO BID PRN cough #20 caps 12/09/24 ondansetron 4 mg disintegrating 4 mg PO Q6H PRN nausea and 04/15/25 tablet vomiting #20 tabs Allergies Allergy/AdvReac Type Severity Reaction Status Date / Time ampicillin Allergy Severe Diarrhea Verified 09/12/25 13:49 codeine Allergy Severe Abdominal Verified 09/12/25 13:49 Pain Milk Containing Products Allergy Severe Abdominal Verified 09/12/25 13:49 (Dairy) Pain morphine Allergy Severe ER GIVEN Verified 09/12/25 13:49 09/11/08 22:45 -NO PROB. CONT MONITOR diazepam AdvReac Severe Vomiting Verified 09/12/25 13:49 hydrocodone AdvReac Severe ANXIETY Verified 09/12/25 13:49 Review of Systems Review of Systems Systems Reviewed: All systems reviewed, normal except as documented Past Medical History Past Medical History CARDIAC: Positive Cardiac Disorders, Coronary Artery Disease, Peripheral Vascular Disease, Hypercholesterolemia, Hypertension and Hypotension RESPIRATORY: Positive Bronchitis GASTROINTESTINAL: Positive Gastrointestinal Disorders, Pancreatitis, Gall Bladder Disease, Colitis, Diverticulitis, Hiatal Hernia, Hemorrhoids and Gastroesophageal Reflux Disease MUSCULOSKELETAL: Positive Musculoskeletal Disorders, Myasthenia Gravis, Arthritis and Osteoporosis ENT: Positive Cataracts and Glaucoma ENDOCRINE: Positive Endocrine Disorders and Diabetes Mellitus Type 2 PSYCHO/SOCIAL: Positive Depression and Anxiety OTHER HISTORY: Positive Hospitalization, Autoimmune Disease, Falls, Blood Transfusions, Chicken Pox, Measles and Mumps Family History FAMILY HISTORY: Positive Family Cardiac Disorders, Family Cancer and Family Surgery Surgical History SURGICAL: Positive Cardiac Surgery, Coronary Stent, Angiogram, Tonsillectomy, Abdominal Surgery and Hysterectomy Social History SMOKING STATUS: Never smoker SUBSTANCE USE: does not use ED Exam General Limitations: Present no limitations General appearance: Present alert and in no apparent distress Head Head exam: Present atraumatic, normocephalic and normal inspection Eye Eye exam: Present normal appearance, PERRL and EOMI ENT ENT exam: Present normal exam, normal oropharynx and mucous membranes moist Neck Neck exam: Present normal inspection, full ROM and trachea midline Chest Chest inspection: Present normal inspection and symmetric chest wall rise Respiratory Respiratory exam: Present normal lung sounds bilaterally Cardiovascular Cardiovascular exam: Present regular rate, normal rhythm and normal heart sounds Abdominal Exam Abdominal exam: Present soft and normal bowel sounds Extremities Exam Extremities exam: Present normal inspection and full ROM Back Exam Back exam: Present normal inspection and full ROM Neurological Exam Neurological exam: Present alert, oriented X3 and CN II-XII intact Psychiatric Psychiatric exam: Present normal affect and normal mood Skin Skin exam: Present warm, dry, intact and normal color Course Quality Measures Suspected type of Stroke: Non Acute Last known well (date): 09/12/25 Last known well (time): 13:00 Tenecteplase given: Reason(s) TPA not given: Stroke severity too mild (non-disabling) not given stroke Orders Category Date Time Status Bedside Blood Glucose NOW Care 09/12/25 14:25 Active COVID-19 Screening Questionnaire NOW Care 09/12/25 17:14 Active Learning And Development Administrator NOW Care 09/12/25 13:58 Active Learning And Development Administrator NOW Care 09/12/25 14:25 Completed Continuous Pulse Oximetry NOW Care 09/12/25 14:25 Completed Decision to Admit X1 Care 09/12/25 17:13 Active EKG (ED ONLY) *Do not use* NOW Care 09/12/25 13:48 Completed Insert IV NOW Care 09/12/25 14:25 Active NIH Stroke Scale now Care 09/12/25 14:25 Active NPO NOW Care 09/12/25 14:25 Active Neuro Check Q15MIN Care 09/12/25 14:25 Completed Nurse Swallow Screen x1 Care 09/12/25 14:25 Active Consult to Neurology / Tele-Neurology Routine Cons 09/12/25 14:[address] angio stroke protocol Stat Exams 09/12/25 14:[address] stroke protocol Stat Exams 09/12/25 14:25 Completed EKG (ED Only) Stat Exams 09/12/25 13:48 Draft Alcohol, Blood Medical Stat Lab 09/12/25 14:42 Completed B-Type Natriuretic Peptide Stat Lab 09/12/25 14:42 Completed CBC Stat Lab 09/12/25 14:42 Completed Comprehensive Metabolic Panel Stat Lab 09/12/25 14:42 Completed Drug Screen,Urine Stat Lab 09/12/25 15:24 Completed Magnesium Stat Lab 09/12/25 14:42 Completed Partial Thromboplastin Time Stat Lab 09/12/25 14:42 Completed Prothrombin Time with INR Stat Lab 09/12/25 14:42 Completed Troponin I Stat Lab 09/12/25 14:42 Completed Urinalysis Stat Lab 09/12/25 15:24 Completed Urine Culture Stat Lab 09/12/25 15:24 Received Meclizine HCl [Antivert] Med 09/12/25 17:13 Discontinued 25 mg PO X1 ONE Sodium Chloride 0.9% 1000 ml [Ns] 1,000 ml Med 09/12/25 14:30 Active IV Q10H Oxygen Delivery NOW RT 09/12/25 14:25 Active Vital Signs Vital signs: Vital Signs Temperature 98.7 F 09/12/25 13:52 Pulse Rate 78 09/12/25 13:52 Respiratory Rate 20 09/12/25 13:52 Blood Pressure 126/70 09/12/25 13:52 Pulse Oximetry (%) 97 09/12/25 13:52 Oxygen Delivery Method Room Air 09/12/25 13:52 Pulse ox is 97% on room air which is adequate. Dizziness MDM Narrative MDM Narrative:: I Kisha Nieto, am scribing for and in the presence of Dr. Fitzgearld. I reviewed teleneurologist Dr. Adams note. States patient is not a TNK candidate. She advised if the patient is still dizzy on reassessment, the admit for MRI, IV fluids, and Meclizine. 1711: On reassessment, the patient reports she is still dizzy, rating 5/10 in severity. I spoke with hospitalist team for admission. Discussed patients PMHx, HPI, ED course, exam findings, labs, and radiology results. The hospitalist agree to accept the patient for admission. Patient data External records reviewed:: [facility] previous records Clinical information provided by:: patient Social determinants that could affect healthcare access:: none Patient has the following chronic illnesses:: Diabetes How is presenting disease/condition affected by chronic disease/condition?: exacerbated by Evaluation data The following diagnostics were reviewed and interpreted by me:: lab results, radiology exam(s) and EKG tracing(s) (EKG @ 13:58, interpreted by me, normal sinus rhythm, rate 79, left axis deviation. ) Lab and/or radiology exams considered but not ordered:: None Interpretation Summary: Ordering Physician: Lucas Fitzgerald MD Date of Service: 09/12/25 Procedure(s): CT stroke protocol Accession Number(s): [id number] cc: Lucas Fitzgerald MD; Demian De Paz MD~ Examination: CT brain head without contrast. 2-D sagittal coronal reconstructions Date and time of exam: September 12, 2025, 1437 hours INDICATIONS: Stroke alert, onset generalized weakness dizziness onset focal neurologic deficit today COMPARISON: December 09, 2024 CTDI: vol (mGy): 48.5 DLP: (mGycm): 934 Technique: Multiple CT axial sections of the brain have been obtained, 5 mm slice thickness. Contrast has not been administered. 2-D sagittal, coronal reconstructions have been obtained Low dose protocols were performed. One or more of the following dose reduction techniques were used; automated exposure control, adjustment of the mA and/or KV according to patient size, use of iterative reconstruction technique. Findings: No significant ventricular enlargement. Frontal atrophy Intra-axial or extra-axial hemorrhage density is not seen. No mass effect or midline shift Basal cisterns are not remarkable. Fourth ventricle is midline. Cranial vault intact. Impression: Negative for acute hemorrhage, mass effect or midline shift Dictated By: Demian De Paz MD Signed By: <Electronically signed by Demian De Paz MD in OV> 09/12/25 1440 Ordering Physician: Lucas Fitzgerald MD Date of Service: 09/12/25 Procedure(s): CT angio stroke protocol Accession Number(s): [id number] cc: Lucas Fitzgerald MD; Demian Perera MD~ Examination: CTA carotids with intravenous contrast CTA brain, head with intravenous contrast. 2-D sagittal, coronal reconstructions. 3-D reconstructions. Exam date and time: 09/12/2025 at 2:45 p.m. CTDI: vol (mGy) 16.6 DLP: (mGycm) 431 CLINICAL HISTORY: Stroke alert, generalized weakness and dizziness today Contrast media: 75 mL of Isovue 370 IV Technique: Multiple CTA axial brain, head carotid images post intravenous contrast injection 70 cc, Isovue-370. 2-D sagittal, coronal reconstructions. 3-D reconstructions, 3-D post processing including vascular maximum intensity projection images. Low dose protocols were performed. One or more of the following dose reduction techniques were used; automated exposure control, adjustment of the mA and/or KV according to patient size, use of iterative reconstruction technique. Findings: There is excellent visualization of the common carotid and internal carotid arteries and the bifurcation in the neck all these vessels appear perfectly normal. The cervical portion and the origin of the right and left vertebral arteries appear perfectly normal, they extend upwards along the clivus forming the basilar artery which appears normal. Within the head, all of the proximal and peripheral portions of the internal carotid, anterior and middle cerebral arteries appear normal on both sides. Likewise in the posterior fossa, the basilar artery and its branches on both right and left sides appear perfectly normal Left there is a small mucous retention cyst in the left maxillary sinus and in the right sphenoid sinus. The upper lung zones appear clear IMPRESSION: 1. The CT angiogram over the cervical and cranial region is entirely normal Dictated By: Demian Perera MD Signed By: <Electronically signed by Demian Perera MD in OV> 09/12/25 1508 Medications / Prescriptions Medications or Prescriptions considered but not ordered:: None Medication administrations:: Medication Administration History Sodium Chloride (Ns) 1,000 mls @ 100 mls/hr IV Q10H QUINN Stop: 10/12/25 14:29 Last Admin: 09/12/25 15:55 Dose: 100 mls/hr Documented By: BD Discontinued Medications Meclizine HCl (Meclizine Hcl 25 Mg Tablet) 25 mg PO X1 ONE Stop: 09/12/25 17:14 See above Consultations Consultation(s) initiated? (list below): Yes Consultation #1 (Physician, Specialty, Details): as noted above Diagnosis Most likely diagnosis given after review of the tests above:: Dizziness Weakness Gait ataxia Admission Indicated Admission indicated?: indicated Admission Request Was there a request for admission?: Yes Admission Attestation Admission request attestation: Discussed case with [] from Hospitalist service regarding admission. Discussed patients ED course, exam findings, labs, and radiology results. The Hospitalist [agrees,declines] to accept the patient for admission. Disposition Plan Disposition Plan: Admit Discharge Plan Plan Patient Disposition: Admit Acute Care w/in Hospital Prescriptions/Referrals Prescriptions/Med Rec: No Action gabapentin 100 MG capsule 100 mg PO BID Qty: 0 clopidogrel 75 mg Tablet 75 mg PO QDAY duloxetine 20 mg Capsule,Delayed Release(Dr/Ec) 20 mg PO QDAY docusate sodium 250 mg Capsule 250 mg PO BID alendronate 35 mg tablet 35 mg PO QWEEK Patient Comments: TAKE 1 TABLET BY MOUTH ONCE A WEEK IN THE MORNING AT LEAST 30MIN BEFORE FIRST MEAL,DRINK OR MED Rx Instructions: wednesday fluticasone propionate 50 mcg/actuation spray,suspension 2 spray INTRANASAL QAM Patient Comments: SPRAY 2 SPRAYS INTO EACH NOSTRIL EVERY DAY triamcinolone acetonide 0.1 % cream 1 applic TOPICAL BID lidocaine 5 % adhesive patch,medicated 1 patch TOPICAL QDAY Patient Comments: APPLY 1 PATCH BY TOPICAL ROUTE ONCE DAILY (MAY WEAR UP TO 12HOURS.) hydroxyzine HCl 10 mg tablet 10 mg PO Q8H Patient Comments: TAKE 1 TABLET BY MOUTH EVERY 8 HOURS NEEDED FOR ITCHING duloxetine 20 mg capsule,delayed release(DR/EC) 20 mg PO QDAY Linzess 145 mcg capsule 145 mcg PO QDAY furosemide [Lasix] 20 mg tablet 20 mg PO Q OTHER DAY Qty: 7 0RF potassium chloride 20 mEq packet 20 meq PO QDAY Qty: 14 0RF ondansetron 4 mg tablet,disintegrating 4 mg PO TID PRN (Reason: nausea and vomiting) Qty: 14 0RF loratadine 10 mg Tablet 10 mg PO QAM ezetimibe [Zetia] 10 mg Tablet 10 mg PO DAILY baclofen 10 mg tablet 10 mg PO HS Patient Comments: TAKE 1 TABLET BY MOUTH EVERY DAY AT BEDTIME NEEDED FOR MUSCLE SPASMS ciprofloxacin HCl 500 mg tablet 500 mg PO BID Qty: 20 0RF lactulose 10 gram/15 mL (15 mL) solution 10 g PO QDAY PRN (Reason: constipation) Qty: 600 0RF azithromycin 500 mg tablet See Rx Instructions .ROUTE .COMPLEX Qty: 3 0RF Rx Instructions: For 500 mg dose pack: take 500 mg once daily for 3 days famotidine [Pepcid] 20 mg tablet 20 mg PO BID Qty: 30 0RF cefuroxime axetil 500 mg tablet 500 mg PO BID Qty: 14 0RF Paxlovid 150-100 mg tablets,dose pack See Rx Instructions .ROUTE .COMPLEX Qty: 20 0RF Rx Instructions: take ONE 150 mg tablet of nirmatrelvir with ONE 100 mg tablet of ritonavir twice daily for 5 days ibuprofen 600 mg tablet 600 mg PO Q8H PRN (Reason: fever or pain) Qty: 30 0RF sulfamethoxazole-trimethoprim [Bactrim DS] 800-160 mg tablet 1 tab PO Q12H Qty: 10 0RF polyethylene glycol 3350 [GentleLax] 17 gram/dose powder 4 g PO QDAY Qty: 238 0RF famotidine [Pepcid] 20 mg tablet 20 mg PO QDAY Qty: 30 0RF acetaminophen [Tylenol Extra Strength] 500 mg tablet 500 mg PO Q6H PRN (Reason: pain) Qty: 30 0RF benzonatate 100 mg capsule 100 mg PO BID PRN (Reason: cough) Qty: 20 0RF ondansetron 4 mg tablet,disintegrating 4 mg PO Q6H PRN (Reason: nausea and vomiting) Qty: 20 0RF Referrals: No Primary/Family,Physician [Primary Care Provider] - In 1 week Problem List Clinical Impression: Dizziness, Weakness, Ataxic gait Patient/Caregiver Discharge Instructions Print Language: Mexican Stand Alone Forms: Evon Award Info., Patient Portal Info Letter
--- NOTE | 2025-09-12 17:42 | ECHO_ITS ---
Patient Info Name: Adrianne Larson Age: 79 years : 1945 Gender: Female Ht: 150 cm Wt: 54 kg BSA: 1.50 m2 BP: 102 / 56 mmHg HR: 66 bpm Exam Date: 09/14/2025 8:29 AM Admit Date: 09/12/2025 Site: [facility] Room Number: [id number] Patient Status: I Exam Type: CA echo doppler complete [employer] Press Operator: Yany Palm Ordering Physician: Rodney Mayer Study Info Indications Echo with bubble study - Contrast/Agitated Saline Contrast/Ag. Saline: Agitated Saline Amount: --- ml Primary Location: [id number] Left Ventricular Outflow Tract Name Value Normal LVOT 2D LVOT Diameter 1.9 cm LVOT Doppler LVOT Peak Velocity 107 cm/s LVOT Mean Gradient 2 mmHg LVOT VTI 24 cm LVOT VTI/AV VTI Ratio 0.8 LVOT Stroke Volume 69 ml Pulmonic Valve Name Value Normal PV Doppler PV Peak Velocity 74 cm/s Mitral Valve Name Value Normal MV Doppler MV Mean Gradient 3 mmHg MV Decel Bland 383 cm/s2 MV PHT 60 ms MV Area (PHT) 3.6 cm2 4.0-5.0 MV Area (Cont Eq VTI) 1.5 cm2 MV Diastolic Function MV E Peak Velocity 80 cm/s MV A Peak Velocity 102 cm/s MV E/A 0.8 MV Annular TDI MV Septal e' Velocity 3.8 cm/s MV E/e' (Septal) 20.9 MV Lateral e' Velocity 4.9 cm/s MV E/e' (Lateral) 16.2 MV e' Average 4.36 cm/s MV E/e' (Average) 18.5 Tricuspid Valve Name Value Normal TV Regurgitation Doppler TR Peak Velocity 136 cm/s Estimated PAP/RSVP RA Pressure 3 mmHg <=5 PA Systolic Pressure 10 mmHg <36 RV Systolic Pressure 10 mmHg <36 TV Annular TDI TV Lateral Nichole s' Velocity 14.7 cm/s >=9.5 Aortic Valve Name Value Normal AV 2D/MM AV Cusp Sep (MM) 1.5 cm AV Doppler AV Peak Velocity 138 cm/s AV Mean Gradient 4 mmHg AV VTI 30 cm AV Area (Cont Eq VTI) 2.3 cm2 >=3.0 AV Area (Cont Eq Brendon) 2.2 cm2 AV DI (Brendon) 0.78 AV Regurgitation 2D LVOT Area 2.8 cm2 Ventricles Name Value Normal LV Dimensions 2D/MM IVS Diastolic Thickness (2D) 0.8 cm 0.6-0.9 LVID Diastole (2D) 4.0 cm 3.8-5.2 LVIW Diastolic Thickness (2D) 1.0 cm 0.6-0.9 LVID Systole (2D) 2.4 cm 2.2-3.5 LVOT Diameter 1.9 cm LV Mass (2D Cubed) 109.69 g 67.00-162.00 LV Mass Index (2D Cubed) 73 g/m2 43-95 Relative Wall Thickness (2D) 0.50 <=0.42 IVS/LVIW Diastolic Thickness (2D) 0.80 0.00-1.50 LV Fractional Shortening/Ejection Fraction 2D/MM LV Fractional Shortening (2D) 40 % 27-45 LV EF (2D Teichholz) 71 % RV Dimensions 2D/MM TV Lateral Nichole s' Velocity 14.7 cm/s >=9.5 Atria Name Value Normal LA Dimensions LA Volume (4C A-L) 44 ml LA Volume (BP A-L) 51 ml Left Ventricle Left ventricular chamber dimension is normal. Left ventricular systolic function is normal with visually estimated ejection fraction of 60-65%. There is normal geometry noted in the left ventricle. Left ventricular segmental wall motion is normal. There is grade I diastolic dysfunction in the left ventricle. Right Ventricle Right ventricular chamber dimension is normal. Right ventricular systolic function is normal. Left Atrium Left atrial chamber dimension is normal. Right Atrium Right atrial chamber dimension is normal. Aortic Valve The aortic valve is trileaflet. There is mild aortic valve sclerosis. There is no aortic valve stenosis with a peak velocity of 138 cm/s, mean gradient of 4 mmHg, and aortic valve area of 2.3 cm2. There is trace aortic valve regurgitation. Pulmonic Valve The pulmonic valve is normal. There is no pulmonic valve stenosis. There is no pulmonic regurgitation. Mitral Valve The mitral valve has thickened leaflets. There is no mitral valve stenosis. There is trace mitral valve regurgitation. Tricuspid Valve The tricuspid valve leaflets are normal. There is no tricuspid valve stenosis. There is trace tricuspid valve regurgitation. No pulmonary hypertension, estimated pulmonary arterial systolic pressure is 10 mmHg and systemic blood pressure of 102 mmHg in systole. Pericardium/Pleural The pericardium appears normal. There is no pericardial effusion. No pleural effusion visualized. Inferior Vena Cava Normal inferior vena cava with >50% collapse upon inspiration consistent with normal right atrial pressure, 3 mmHg. Aorta The aortic measurements are indexed to age and body surface area. The aortic root at the sinus of Valsalva is not well visualized. The prox ascending aorta is not well visualized. Summary 1. Left ventricle size is normal and systolic function is normal. Estimated ejection fraction is 60-65%. There is grade I diastolic dysfunction. 2. Right ventricle chamber size is normal and systolic function is normal. Estimated RVSP is 10 mmHg. 3. There is trace aortic,tricuspid and mitral valve regurgitation. Mild MAC. 4. The mitral valve has thickened leaflets. 5. Normal IVC with estimated RA pressure 3 mmHg. 6. Negative bubble study. Report Signatures Finalized by Liliana An on 09/14/2025 10:32 AM
[2025-09-12] MEDS: MECLIZINE HCL 25 MG TABLET PO (18:09)
--- NOTE | 2025-09-12 18:51 | PC.NURSE ---
called hospitalist to change insulin coverage as it is scheduled for am yet no coverage for now and pt blood sugar is 180
[2025-09-12] MEDS: FAMOTIDINE INJ 10 MG/ML VIAL 2 ML 40 MG IVP (19:04)
--- NOTE | 2025-09-12 19:05 | PC.NURSE ---
waiting for house to bring eye drops
--- NOTE | 2025-09-12 20:07 | PC.NURSE ---
ATTEMPTED REPORT AT 2007
[2025-09-12] MEDS: MELATONIN 3 MG TABLET PO (20:58)
[2025-09-12] MEDS: HEPARIN SOD INJ 5000 UNIT/ML VIAL SC (20:58)
[2025-09-12] MEDS: LATANOPROST OP SOL 0.005% 2.5 ML BTL BOTH EYES (20:59)
[2025-09-12] MEDS: ATORVASTATIN CALCIUM 20 MG TABLET 40 MG PO (20:59)
--- NOTE | 2025-09-12 22:27 | ESHP_ITS ---
<Statement entered by Loni Castle MD - 09/17/25 07:59> I reviewed above note and agree with findings and plans. I have also personally examined the patient with medicine team and went over assessment and plan with medical team including industrial design intern and resident physician. <Statement entered by Rodney Mayer MD - 09/13/25 07:45> I discussed and supervised with the industrial design intern physician who took care of this patient. I personally saw and examined the patient. I agree with most of the assessment and plan. Disclaimer: Despite multiple revisions, due to the dictation software being used, the document bellow may not be free of grammatical errors including phonetic/typographic errors. However, this does not deter from our commitment to providing health care in the patient's best interest in mind. Plan of care discussed with attending Physician Dr. Alfonzo Mayer MD PGY-3 Documentation for date of: 09/12/25 HPI History of Present Illness History of present illness: Patient is a 79-year-old F with a PMH of diabetes, hyperlipidemia, coronary artery disease s/p angioplasty, pancreatitis, and hiatal hernia who presented on 09/12/2025 with a chief complaint of dizziness/lightheadedness. Earlier in the day, patient reports that she had been eating and then after she got up she started to feel dizzy and lightheaded alongside an urge to vomit but did not. The episode lasted for about 2 to 3 minutes after she sat down before it resolved but not completely. 20 minutes later she had another episode when she got up to try to walk to the bathroom to vomit and endorsed more exacerbations that occur whenever she tries to get up quickly. Each time, her symptoms self- resolve after she has sat and rested for awhile. She denies any similar prior episodes. PMH: As above PSH: Angioplasty, hysterectomy, cholecystectomy Allergies: NKDA FH: Mom during childbirth, dad of stomach cancer at the age of 81 SH: No significant smoking, alcohol, or recreational drug use history In the ED, vitals showed: BP 126/70 HR 78 RR 20 Temp 98.7 SpO2 97% on room air CBC WNL. Coagulation panel WNL. CMP showed blood glucose 203, BNP 178, but otherwise WNL. UA bland and UDS grossly negative. Imaging: EKG showed sinus rhythm HR 79 with left axis deviation and normal QTc 424. Head CT negative for acute hemorrhage, mass effect, or midline shift. Head/Neck CTA entirely normal. In the ED, patient was given meclizine PO x 1, famotidine IV x 1, and 1 L IV NS fluid. Tele-Neurology evaluated the patient to have an NIHSS Score of 0 and was deemed less likely to have true CVA with recommendations to discharge patient should her symptoms completely resolve. Patient was admitted to Observation for the work-up and management of dizziness/lightheadedness. Neurology was consulted and is closely following the case. Review of Systems Review of Systems Systems Reviewed: All systems reviewed, normal except as documented Exam Vital Signs Temp Pulse Resp BP Pulse Ox O2 Del Method 98.2 F 74 17 123/68 97 Room Air 09/12/25 21:00 09/12/25 21:00 09/12/25 21:00 09/12/25 21:00 09/12/25 21:00 09/12/25 21:00 Narrative Exam Physical Exam: General: Alert, no acute distress. Skin: Warm, dry, intact, no obvious rash. Head: Normocephalic, atraumatic. Eye: Normal conjunctiva, PERRL. Throat: Oral mucosa moist. Cardiovascular: Regular rate and rhythm, no murmur, normal peripheral perfusion, no edema. Respiratory: Lungs are clear to auscultation, respirations non labored, no crackles, no wheezing. Gastrointestinal: Soft, nontender, non-distended. Psychiatric: Cooperative, appropriate affect. Neuro: Mental status: Alert, oriented, appropriately responding to commands. Speech/Language: Speech fluent, no word finding difficulty or paraphasic errors observed. Language-comprehension, repetition and naming intact. No dysarthria noted. Memory: Grossly recent and remote intact. Cranial Nerves: II: No visual deficits and visual [place] full to confrontation. Pupils 3-5 mm size BL round, reactive to light. III, IV, : EOMI, no nystagmus, no ptosis, no APD, smooth pursuit without saccadic intrusion, conjugate horizontal gaze intact. V: Gross sensation intact in V1, V2 and V3 distribution to crude touch. Jaw strength normal. VII: No facial asymmetry, able to smile symmetrically and BL good eye closure. VIII: Hearing intact in both ears per finger rubbing. IX, X: Symmetrical palate elevation, uvula in midline. XI: Symmetrical head rotation and shoulder shrug. IX, XII: Midline tongue protrusion. No fasciculations or atrophy noted. Sensory examination Crude touch in bilateral upper and lower extremity grossly intact. Motor examination No drift in bilateral upper extremity 4/5 strength in bilateral upper extremity 4/5 strength in bilateral lower extremity Coordination [id number] test performed without any difficulty. No dysmetria. Results: Labs 09/12/25 14:42 09/12/25 14:42 Labs: Short CBC 09/12/25 Range/Units 14:42 WBC 6.9 (3.6-11.0) Thou/mm3 Hgb 12.2 (12.0-16.0) g/dL Hct 35.6 L (36.0-46.0) % Plt Count 144 (140-440) Thou/mm3 BMP 09/12/25 14:42 Sodium 141 Potassium 4.2 Chloride 105 Carbon Dioxide 28.8 BUN 18 Creatinine 0.8 Glucose 203 H Calcium 8.7 Cardiac Enzymes 09/12/25 Range/Units 14:42 Troponin I < 0.002 (0.0-0.045) ng/mL Liver Function 09/12/25 Range/Units 14:42 Total Bilirubin 0.4 (0.3-1.2) mg/dL AST 42 H (0-34) U/L ALT 41 (10-49) U/L Alkaline Phosphatase 147 H (46-116) U/L Albumin 3.7 (3.4-4.8) gm/dL Urine 09/12/25 Range/Units 15:24 Urine Color Colorless A (Lt Yel-Yel) Urine Clarity Clear (Clear/Hazy) Urine pH 7.0 (5.0-7.0) Ur Specific [place] 1.013 (1.001-1.035) Urine Protein Negative (Neg - Trace) Urine Glucose (UA) Negative (Negative) Quality Measures Quality Measures stroke Suspected type of Stroke: Non Acute Last known well (date): 09/12/25 Last known well (time): 13:00 Tenecteplase given: Reason(s) Tenecteplase not given: Stroke severity too mild (non-disabling) not given Rehab services: PT evaluation ordered and Speech Language Pathology eval ordered VTE Prophylaxis: pharmaceutical Antithrombotic by day 2:: not indicated (describe) Statin ordered: >75 y/o moderate or high intensity dose Anticoagulation ordered for A- fib or flutter (current or hx): not indicated Advance care planning discussed with:: patient Medications Home Medications and Allergies Home Medications ?Medication ?Instructions ?Recorded ?Confirmed ?Type gabapentin 100 mg capsule 100 mg PO DAILY #0 caps 12/1909/12/25 History ezetimibe 10 mg tablet (Zetia) 10 mg PO DAILY 12/21/18 09/12/25 History loratadine 10 mg tablet 10 mg PO QAM 12/21/18 History alendronate 35 mg tablet 35 mg PO QWEEK 01/28/2108/21 History clopidogrel 75 mg tablet 75 mg PO QDAY 01/28/2109/12 History docusate sodium 250 mg capsule 250 mg PO BID PRN const ipation 01/28/21 09/12/25 History duloxetine 20 mg capsule,delayed 20 mg PO QDAY 1 09/12/25 History release fluticasone propionate 50 2 spray intranasal QAM 01/2809/12/25 History mcg/actuation nasal spray,suspension baclofen 10 mg tablet 10 mg PO HS 06/24/21 5 History duloxetine 20 mg capsule,delayed 20 mg PO QDAY 2 09/12/25 History release hydroxyzine HCl 10 mg tablet 10 mg PO Q8H PRN itching 12/04/21 09/12/25 History lidocaine 5 % topical patch 1 patch topical QDAY PRN p ain 12/04/21 09/12/25 History (scale score 7-10) linaclotide 145 mcg capsule 145 mcg PO QDAY 12/04/21 1 11/13/24 History (Linzess) triamcinolone acetonide 0.1 % 1 applic topical BID 09/12/25 History topical cream potassium chloride 20 mEq oral 20 meq PO EVERYOTHERDAY 09/12/25 09/12/25 History packet Allergies Allergy/AdvReac Type Severity Reaction Status Date / Time ampicillin Allergy Severe Diarrhea Verified 09/12/25 13:49 codeine Allergy Severe Abdominal Verified 09/12/25 13:49 Pain Milk Containing Products Allergy Severe Abdominal Verified 09/12/25 13:49 (Dairy) Pain morphine Allergy Severe ER GIVEN Verified 09/12/25 13:49 09/11/08 22:45 -NO PROB. CONT MONITOR diazepam AdvReac Severe Vomiting Verified 09/12/25 13:49 hydrocodone AdvReac Severe ANXIETY Verified 09/12/25 13:49 Visit Medications Acetaminophen (Acetaminophen 325 Mg Tablet) 650 mg PO Q6H PRN PRN Reason: Fever >100.4 Stop: 10/12/25 17:39 Acetaminophen (Acetaminophen 325 Mg Tablet) 650 mg PO Q6H PRN PRN Reason: PAIN SCALE 1-3 (mild Stop: 10/12/25 17:39 Aspirin (Aspirin Ec 81 Mg Tabec) [address] [facility] Stop: 10/13/25 08:59 Atorvastatin Calcium (Atorvastatin Calcium 20 Mg Tablet) [address] [facility] Stop: 10/12/25 20:59 Last Admin: 09/12/25 20:59 Dose: 40 mg Dextrose (Dextrose 50%-Water Inj 50 Ml Syringe) 25 ml IV Q15MIN PRN PRN Reason: BG 50-70 responsive npo pt Stop: 10/12/25 17:39 Dextrose (Dextrose 50%-Water Inj 50 Ml Syringe) 50 ml IV Q15MIN PRN PRN Reason: BG <50 OR BG <70 & pt unresponsive Stop: 10/12/25 17:39 Docusate Sodium (Docusate Sod 250 Mg Capsule) [address] [facility]; Protocol Stop: 10/12/25 20:59 Last Admin: 09/12/25 20:59 Dose: Not Given Glucagon (Glucagon Inj 1 Mg Vial) 1 mg IM Q15MIN PRN PRN Reason: BG <70, and no IV access Heparin Sodium (Porcine) (Heparin Sod Inj 5000 Unit/Ml Vial) 5,[address] [facility] Stop: 09/26/25 20:59 Last Admin: 09/12/25 20:58 Dose: 5,000 unit Sodium Chloride (Ns) 1,000 mls @ 100 mls/hr IV Q10H [facility] Stop: 10/12/25 14:29 Last Admin: 09/12/25 15:55 Dose: 100 mls/hr Insulin Human Lispro (Insulin Lispro (Admelog) 1 Unit/0.01 Ml Unit) [address] [facility]; Protocol Stop: 10/12/25 18:54 Last Admin: 09/12/25 18:57 Dose: Not Given Latanoprost (Latanoprost Op Aleida 0.005% 2.5 Ml Btl) [address] [facility] Stop: 10/12/25 18:29 Last Admin: 09/12/25 20:59 Dose: 1 drop Meclizine HCl (Meclizine Hcl 25 Mg Tablet) 25 mg PO TID PRN PRN Reason: Dizziness Stop: 10/12/25 17:45 Melatonin (Melatonin 3 Mg Tablet) [address] [facility] Stop: 10/12/25 20:59 Last Admin: 09/12/25 20:58 Dose: 3 mg Ondansetron HCl (Ondansetron Inj 2 Mg/Ml Inj 2 Ml) 4 mg IVP Q6H PRN; Protocol PRN Reason: NAUSEA OR VOMITING Stop: 10/12/25 17:39 Pantoprazole Sodium (Pantoprazole 40 Mg Tablet) [address] [facility] Stop: 10/13/25 08:59 Fluticasone/Salmeterol (Fluticasone/Salmeterol 250/50 14 Dose Inh) 1 puff INH BIDRT PRN PRN Reason: Shortness of Breath Stop: 10/12/25 18:59 Sennosides (Senna Tablet) [address] [facility]; Protocol Stop: 10/13/25 08:59 Discontinued Medications Famotidine (Famotidine Inj 10 Mg/Ml Vial 2 Ml) 40 mg IVP X1 ONE Stop: 09/12/25 18:22 Last Admin: 09/12/25 19:04 Dose: 40 mg Insulin Human Lispro (Insulin Lispro (Admelog) 1 Unit/0.01 Ml Unit) [address] [facility]; Protocol Stop: 10/13/25 07:29 Meclizine HCl (Meclizine Hcl 25 Mg Tablet) 25 mg PO X1 ONE Stop: 09/12/25 17:14 Last Admin: 09/12/25 18:09 Dose: 25 mg Sennosides (Senna Tablet) 1 tab PO QDAY PRN; Protocol PRN Reason: constipation Stop: 10/12/25 17:39 Assessment & Plan Plan Patient is a 79-year-old F with a PMH of diabetes, hyperlipidemia, coronary artery disease s/p angioplasty, pancreatitis, and hiatal hernia who presented on 09/12/2025 with a chief complaint of dizziness/lightheadedness and admitted for stroke work-up. #Stroke-like symptoms Patient initially presented with dizziness/lightheadedness with difficulty ambulating that worsens after she gets up quickly but gets better after about 2- 3 minutes after she has laid back down (though not complete resolution) Head CT negative Head/neck CT negative Although the decision was made to place patient on stroke rule out protocol, it is more than likely patient's current symptoms can be attributed to orthostatic hypotension (possibly in the setting of hypoglycemia) which is supported by the lack of residual neurologic deficits and self-resolution of symptoms once sitting or supine again. Initial NIHSS score of 0, not a TNK candidate Dx: -Ordered head MRI, results pending -Ordered echocardiogram with bubble study, results pending -Ordered orthostatic vitals, results pending -Ordered lipid panel, results pending -Ordered TSH, results pending Rx: -PO atorvastatin 40 mg qHS -PO aspirin 81 mg qD -PO acetaminophen 650 mg prn for T > 100.3 -Meclizine 25 mg PO TID prn (with x 1 dose given) -IV NS fluid -Neuro checks Q4HR -Ordered PT referral -Ordered speech evaluation referral -Neurology consulted, appreciate recommendations #T2DM On home insulin Dx: -Hemoglobin A1c ordered, showed ___ Rx: -ISS w/ hypoglycemic protocol #Constipation Rx: -Colace 250 mg PO BID -Senna 1 tab PO QD Hospital Management: Disposition: Observation, anticipate discharge tomorrow if stroke work-up returns negative Diet: Carbohydrate Consistent GI Prophylaxis: Protonix Bowel Prophylaxis: Colace and Senna DVT Prophylaxis: Heparin CODE STATUS: Full Code I have examined the patient and conferred with my attending, Dr. Castle, and my senior resident, Dr. Mayer, regarding them. Davis Mejía, DO PGY-1 Internal Medicine
[2025-09-13] VITALS (10 sets, daily range): BP systolic 86–109; BP diastolic 45–64; PULSE 59–87; RESP 13–98; TEMP 36.1–36.9; O2SAT 95–98; BMI 22.8; BMI 13.0
[2025-09-13] MEDS: SODIUM CHLORIDE 0.9% 1000 ML 1,000 ML 100 ML IV (02:27)
[2025-09-13] MEDS: RINGERS LACTATED 500 ML 500 ML 999 ML IV ×2 (04:26→18:37)
[2025-09-13 05:43] LABS: Basophils # (Auto) 0.0 Thou/mm3 (0.0-0.2); Basophils % (Auto) 1 % (0-2.5); Eosinophils # (Auto) 0.1 Thou/mm3 (0.0-0.5); Eosinophils % (Auto) 2 % (0-10); Hematocrit 33.1 % (36.0-46.0); Hemoglobin 11.2 g/dL (12.0-16.0); Immature Granulocytes Auto 0.01 Thou/mm3 (0.00-0.00); Lymphocytes # (Auto) 1.4 Thou/mm3 (1.0-4.8); Lymphocytes % (Auto) 26 % (10-50); Mean Corpuscular HGB Conc 33.8 g/dl (31.0-37.0); Mean Corpuscular Hemoglobin 30.8 pg (25.0-35.0); Mean Corpuscular Volume 91 fL (80-100); Monocytes # (Auto) 0.6 Thou/mm3 (0.0-0.8); Monocytes % (Auto) 11 % (0-12); Neutrophils # (Auto) 3.2 Thou/mm3 (1.8-7.7); Neutrophils % (Auto) 60 % (37-80); Nucleated Red Blood Cell # 0.00 Thou/mm3 (0.00-0.00); Nucleated Red Blood Cell % 0 /100 WBC (0); Platelet Count 142 Thou/mm3 (140-440); RDW Standard Deviation 41.1 fL (36.4-46.3); Red Blood Count 3.64 Miln/mm3 (4.00-5.20); White Blood Count 5.4 Thou/mm3 (3.6-11.0)
[2025-09-13 05:51] LABS: INR 1.1 (0.9-1.3); Partial Thromboplastin Time 26.6 Seconds (22.0-36.0); Prothrombin Time 11.5 Seconds (9.0-12.2)
[2025-09-13 06:10] LABS: Alanine Aminotransferase 30 U/L (10-49); Albumin, Serum 3.4 gm/dL (3.4-4.8); Albumin/Globulin Ratio 1.5 (1.2-2.2); Alkaline Phosphatase 101 U/L (46-116); Anion Gap 9 (7-16); Aspartate Amino Transferase 30 U/L (0-34); BUN/Creatinine Ratio 22 Ratio (12-20); Bilirubin,Total 0.7 mg/dL (0.3-1.2); Blood Urea Nitrogen 13 mg/dL (9-23); Calcium 8.3 mg/dL (8.3-10.6); Calcium (Corrected) 8.8 mg/dL (8.5-10.1); Carbon Dioxide 28.9 mMol/L (20.0-31.0); Cardiac Risk Estimate 2.2 RATIO (3.7-5.6); Chloride 109 mMol/L (98-107); Cholesterol 116 mg/dL (132-200); Creatinine (Component) 0.6 mg/dL (0.6-1.3); Estimated Creatinine Clearance 53.6 mL/min (>60); Globulin 2.2 gm/dL (2.3-3.5); Glucose 96 mg/dL (74-106); HDL Cholesterol 52 mg/dL (40-60); LDL Cholesterol,Calculated 50 mg/dL (0-130); Magnesium 1.9 mg/dL (1.6-2.6); Osmolality,Calculated 292 (275-295); Phosphorous 3.5 mg/dL (2.4-5.1); Potassium 3.9 mMol/L (3.4-5.1); Sodium 147 mMol/L (136-145); Thyroid Stimulating Hormone 3.78 uIU/mL (0.55-4.78); Total Protein 5.6 gm/dL (5.7-8.2); Triglycerides 68 mg/dL (30-150); eGFR > 60 See Note
[2025-09-13 06:27] LABS: Glucose Estimated Average 160 mg/dL (80-131); Hemoglobin A1C 7.2 % Hgb (4.8-6.0)
[2025-09-13] MEDS: FLUTICASONE/SALMETEROL 250/50 14 DOSE INH 1 PUFF INH ×2 (07:48→19:50)
[2025-09-13] MEDS: RINGERS LACTATED 1000 ML 1,000 ML 125 ML IV (08:17)
[2025-09-13] MEDS: DOCUSATE SOD 250 MG CAPSULE PO ×2 (08:18→20:53)
[2025-09-13] MEDS: PANTOPRAZOLE 40 MG TABLET PO (08:18)
[2025-09-13] MEDS: HEPARIN SOD INJ 5000 UNIT/ML VIAL SC ×2 (08:18→20:53)
[2025-09-13] MEDS: ASPIRIN EC 81 MG TABEC PO (08:18)
[2025-09-13] MEDS: LATANOPROST OP SOL 0.005% 2.5 ML BTL BOTH EYES (08:44)
--- NOTE | 2025-09-13 10:28 | PC.SS ---
79YO Female, Reason for visit: STROKE RULE OUT. SS met with patient at bedside to complete initial assessment. Role and purpose of today?s contact explained to patient. Patient confirmed her demographic information.? Patient stated her primary medical surrogate decisionmaker is her sibling Marybeth Prasad [phone]. Patient reported she requires assistance with ADLs and assisted by her [facility] care provider Berta (56hrs. monthly). Patient has requested FWW for ambulation support. PT Kenyon confirmed patient?s need for FWW. SS to submit referral and provide follow up contact information for [facility]. PCP: Dr. Batista, last appt. was early August. Patient unable to provide exact date.?PHARMACY: [facility]. Discharge planning discussed with patient, she is requesting to return home at the time of discharge. Patient?s wilner Reed [phone] to provide transportation.? DISCHARGE PLAN: HOME NEXT OF KIN: Sibling Marybeth Prasad [phone].
--- NOTE | 2025-09-13 11:10 | ESPR_ITS ---
Tele Neuro Progress Note Progress Note Date 09/13/25 Most Recent Vital Signs Last Vital Signs Temp 97.0 F 09/13/25 08:00 Pulse 62 09/13/25 08:00 Resp 16 09/13/25 08:00 BP 92/53 L 09/13/25 08:00 Pulse Ox 98 09/13/25 08:00 O2 Del Method Room Air 09/13/25 08:00 Laboratory-Coagulation Panel PT 11.5 Seconds (9.0-12.2) 09/13/25 05:11 INR 1.1 (0.9-1.3) 09/13/25 05:11 APTT 26.6 Seconds (22.0-36.0) 09/13/25 05:11 Progress Note Narrative [facility] TeleNeurology Consult Services Routine Consult Follow-Up Patient Name:???Adrianne Larson Date of :???1945 Identification Number:??? Date of Service:???09/13/2025 11:00:49 Diagnosis?R42 - Dizziness/ Vertigo/ Giddiness Impression 79F presented with weakness and dizziness. Hx vertigo but this seems different than normal although it is improving a lot. HCT unremarkable. Rec obtaining orthostatics, rec obtaining a toxic metabolic infectious workup (U/A, COVID/flu +/-RSV, chest xray etc as per ED MD/primary team discretion), ear evaluation by ED attending/primary team, symptomatic treatment of vertigo with fluids and meclizine and if symptoms COMPLETELY resolve can dc home as there would be more of a concern for a peripheral vertigo instead of a CVA. If symptoms don't COMPLETELY resolve would give ASA 81 mg and cont home plavix 81 mg and admit for MRI brain wo imaging to assure no evidence of CVA and TTE. Not a thrombolytic candidate 2/2 declined by patient 2/2 non-debilitating symptoms and alternative etiology for symptoms suspected other than CVA. Not an IR candidate 2/2 NIH low (no severely newly debilitating symptoms and LVO not suspected) but CTA H&N results pending. 09/13: CT/CTA wnl. MRI pending. Symptomatic treatment as needed. PT/OT/ST evaluation. Consider cardiac work-up. Neurology will follow. Call with any questions or concerns. If MRI neg, can likely dc from a neuro standpoint. Our recommendations are outlined below Subjective Patient seen this am.Feeling tired and fatigued today. Dizziness is improved. ? Examination 1A: Level of Consciousness - Alert; keenly responsive?+ 0 1B: Ask Month and Age - Both Questions Right?+ 0 1C: Blink Eyes & Squeeze Hands - Performs Both Tasks?+ 0 2: Test Horizontal Extraocular Movements - Normal?+ 0 3: Test Visual [place] - No Visual Loss?+ 0 4: Test Facial Palsy (Use Grimace if Obtunded) - Normal symmetry?+ 0 5A: Test Left Arm Motor Drift - No Drift for 10 Seconds?+ 0 5B: Test Right Arm Motor Drift - No Drift for 10 Seconds?+ 0 6A: Test Left Leg Motor Drift - No Drift for 5 Seconds?+ 0 6B: Test Right Leg Motor Drift - No Drift for 5 Seconds?+ 0 7: Test Limb Ataxia (FNF/Heel-Gordillo) - No Ataxia?+ 0 8: Test Sensation - Normal; No sensory loss?+ 0 9: Test Language/Aphasia - Normal; No aphasia?+ 0 10: Test Dysarthria - Normal?+ 0 11: Test Extinction/Inattention - No abnormality?+ 0 NIHSS Score:?0 ? This consult was conducted in real time using interactive audio and video technology. Patient was informed of the technology being used for this visit and agreed to proceed. Patient located in hospital and provider located at home/offi setting. Telehealth Neurology consultation was provided. I spent minutes providing telehealth care. This includes time spent for face to face visit via telemedicine, review of medical records, imaging studies and discussion of findings with providers, the patient and/or family. Dr Osman Willams [facility] For Inpatient follow-up with [facility] physician please call [facility] at . As we are not an outpatient service for any post hospital discharge needs please contact the hospital for assistance. If you have any questions for the [facility] physicians or need to re consult for clinical or diagnostic changes please contact us via [facility] at Signature :Yumiko Willams
[2025-09-13] MEDS: RINGERS LACTATED 1000 ML 1,000 ML 999 ML IV (11:44)
--- NOTE | 2025-09-13 13:08 | ESPR_ITS ---
<Statement entered by Loni Castle MD - 09/17/25 08:00> I reviewed above note and agree with findings and plans. I have also personally examined the patient with medicine team and went over assessment and plan with medical team including international logistics analyst and resident physician. <Statement entered by Rodney Mayer MD - 09/13/25 15:02> Patient was seen and examined at the bedside. No acute overnight events were reported. Patient reported that she is still feeling dizzy and her blood pressure was noted to be on the softer side. Other labs reveal white count stable and hemoglobin stable. A1c came 7.2. We gave additional bolus of LR 1 L x 1 besides continuing LR at 125 cc/h due to hypotension.Hypotension might be related to polypharmacy. Patient's home medications including baclofen and gabapentin were held which might be contributing to patient's dizziness. Will follow-up with MRI brain for stroke protocol. Although patient did not have clinical symptoms of urinary frequency and urine analysis was clean urine culture was ordered in the ED which is pending. Currently were not covering with any antibiotic since she did not had any active symptoms. We will hold patient's baclofen and gabapentin which might be contributing to dizziness upon dc. Anticipate discharge tomorrow once blood pressure is improved. All labs and orders were reviewed. I discussed and supervised with the international logistics analyst physician who took care of this patient. I personally saw and examined the patient. I agree with most of the assessment and plan. Disclaimer: Despite multiple revisions, due to the dictation software being used, the document bellow may not be free of grammatical errors including phonetic/typographic errors. However, this does not deter from our commitment to providing health care in the patient's best interest in mind. Plan of care discussed with attending Physician Dr. Alfonzo Mayer MD PGY-3 Documentation for date of: 09/13/25 Subjective Subjective Interval history: Overnight, patient was reported to have a MAP of 59 but this improved to 64 after she was given a small bolus of IV fluid. Patient was examined at bedside; they appear A&Ox3 and in NAD. Vitals/labs today significant for BP 92/53, sodium 141->147. Physical exam was non-contributory. Patient was originally anticipated to be discharged once her brain MRI came back negative as per stroke protocol but her blood pressures continue to remain soft. IV fluids are being given and it is hoped that patient's low blood pressures leading to suspected orthostatic hypotension symptoms just requires a little bit more time to return to normotensive levels after her polypharmacy has been discontinued. Exam Vital Signs Temp Pulse Resp BP Pulse Ox O2 Del Method 97.0 F 62 16 92/53 L 98 Room Air 09/13/25 08:00 09/13/25 08:00 09/13/25 08:00 09/13/25 08:00 09/13/25 08:00 09/13/25 08:00 Narrative Exam General: Alert, no acute distress. Skin: Warm, dry, intact, no obvious rash. Head: Normocephalic, atraumatic. Eye: Normal conjunctiva, PERRL. Throat: Oral mucosa moist. Cardiovascular: Regular rate and rhythm, no murmur, normal peripheral perfusion, no edema. Respiratory: Lungs are clear to auscultation, respirations non labored, no crackles, no wheezing. Gastrointestinal: Soft, nontender, non-distended. Psychiatric: Cooperative, appropriate affect. Neuro: Mental status: Alert, oriented, appropriately responding to commands. Speech/Language: Speech fluent, no word finding difficulty or paraphasic errors observed. Language-comprehension, repetition and naming intact. No dysarthria noted. Memory: Grossly recent and remote intact. Cranial Nerves: II: No visual deficits and visual haywood full to confrontation. Pupils 3-5 mm size BL round, reactive to light. III, IV, : EOMI, no nystagmus, no ptosis, no APD, smooth pursuit without saccadic intrusion, conjugate horizontal gaze intact. V: Gross sensation intact in V1, V2 and V3 distribution to crude touch. Jaw strength normal. VII: No facial asymmetry, able to smile symmetrically and BL good eye closure. VIII: Hearing intact in both ears per finger rubbing. IX, X: Symmetrical palate elevation, uvula in midline. XI: Symmetrical head rotation and shoulder shrug. IX, XII: Midline tongue protrusion. No fasciculations or atrophy noted. Sensory examination Crude touch in bilateral upper and lower extremity grossly intact. Motor examination No drift in bilateral upper extremity 4/5 strength in bilateral upper extremity 4/5 strength in bilateral lower extremity Coordination [id number] test performed without any difficulty. No dysmetria. Objective Labs 09/13/25 05:11 09/13/25 05:11 Labs: Laboratory Results - last 24 hr 09/12/25 09/12/25 09/13/25 14:42 15:24 05:11 WBC 6.9 5.4 RBC 4.00 3.64 L Hgb 12.2 11.2 L Hct 35.6 L 33.1 L MCV 89 91 MCH 30.5 30.8 MCHC 34.3 33.8 RDW Std Deviation 40.6 41.1 Plt Count 144 142 Neut % (Auto) 70 60 Lymph % (Auto) 18 26 Mcmullen % (Auto) 9 11 Eos % (Auto) 2 2 Baso % (Auto) 1 1 Neut # (Auto) 4.8 3.2 Lymph # (Auto) 1.2 1.4 Mcmullen # (Auto) 0.6 0.6 Eos # (Auto) 0.1 0.1 Baso # (Auto) 0.0 0.0 Immature Gran # (Auto) 0.04 H 0.01 H Absolute Nucleated RBC 0.00 0.00 Immature Gran % 1 H 0 Nucleated RBC % 0 0 PT 11.1 11.5 INR 1.0 1.1 APTT 25.9 26.6 Sodium 141 147 H Potassium 4.2 3.9 Chloride 105 109 H Carbon Dioxide 28.8 28.9 Anion Gap 7 9 BUN 18 13 Creatinine 0.8 0.6 Estim Creat Clear Calc Not Performed. 53.6 L eGFR > 60 > 60 BUN/Creatinine Ratio 23 H 22 H Glucose [address] Glu mg/dL 160 H Hemoglobin A1c 7.2 H Calculated Osmolality 289 292 Calcium 8.7 8.3 Corrected Calcium 8.9 8.8 Phosphorus 3.5 Magnesium 2.1 1.9 Total Bilirubin 0.4 0.7 AST 42 H 30 ALT 41 30 Alkaline Phosphatase 147 H 101 D Troponin I < 0.002 B-Natriuretic Peptide 178 H Total Protein 6.6 5.6 L Albumin 3.7 3.4 Globulin 2.9 2.2 L Albumin/Globulin Ratio 1.3 1.5 Triglycerides 68 Cholesterol 116 L LDL Cholesterol, Calc 50 HDL Cholesterol 52 Cholesterol/HDL Ratio 2.2 L TSH 3.78 Ur Collection Type Catheter Urine Color Colorless A Urine Clarity Clear Urine pH 7.0 Ur Specific [place] 1.013 Urine Protein Negative Urine Glucose (UA) Negative Urine Ketones Negative Urine Blood Negative Urine Nitrite Negative Urine Bilirubin Negative Urine Urobilinogen (Auto) Negative Ur Leukocyte Esterase Negative Urine RBC 2 Urine WBC < 1 Ur Squamous Epith Cells 0 Urine Bacteria None Urine Opiates Screen Negative Urine Fentanyl Screen Negative Ur Barbiturates Screen Negative U Amphetamin/Meth Scrn Negative U Benzodiazepines Scrn Negative U Cocaine Metab Screen Negative U Marijuana (THC) Screen Negative Ethyl Alcohol < 3.0 Quality Measures Quality Measures stroke Suspected type of Stroke: Non Acute Last known well (date): 09/12/25 Last known well (time): 13:00 Tenecteplase given: Reason(s) Tenecteplase not given: Stroke severity too mild (non-disabling) not given Rehab services: PT evaluation ordered VTE Prophylaxis: pharmaceutical Antithrombotic by day 2:: not indicated (describe) Statin ordered: <75 y/o high intensity dose Anticoagulation ordered for A-fib or flutter (current or hx): not indicated Advance care planning discussed with:: patient Assessment & Plan Assessment Current Active Medications: Generic Name Dose Route Start Last Admin Trade Name Joo PRN Reason Stop Dose Admin Acetaminophen 650 mg 09/12/25 17:40 Acetaminophen 325 Mg Tablet PO 10/12/25 17:39 Q6H PRN Fever >100.4 Acetaminophen 650 mg 09/12/25 17:40 Acetaminophen 325 Mg Tablet PO 10/12/25 17:39 Q6H PRN PAIN SCALE 1-3 (mild Aspirin 81 mg 09/13/25 09:00 09/13/25 08:18 Aspirin Ec 81 Mg Tabec PO 10/13/25 08:59 81 mg QDAY QUINN Administration Atorvastatin Calcium 40 mg 09/12/25 21:00 09/12/25 20:59 Atorvastatin Calcium 20 Mg Tablet PO 10/12/25 20:59 40 mg HS QUINN Administration Dextrose 25 ml 09/12/25 17:40 Dextrose 50%-Water Inj 50 Ml Syringe IV 10/12/25 17:39 Q15MIN PRN BG 50-70 responsive npo pt Dextrose 50 ml 09/12/25 17:40 Dextrose 50%-Water Inj 50 Ml Syringe IV 10/12/25 17:39 Q15MIN PRN BG <50 OR BG <70 & pt unresponsive Docusate Sodium 250 mg 09/12/25 21:00 09/13/25 08:18 Docusate Sod 250 Mg Capsule PO 10/12/25 20:59 250 mg BID QUINN Administration Protocol Glucagon 1 mg 09/12/25 17:40 Glucagon Inj 1 Mg Vial IM Q15MIN PRN BG <70, and no IV access Heparin Sodium (Porcine) 5,000 unit 09/12/25 21:00 09/13/25 08:18 Heparin Sod Inj 5000 Unit/Ml Vial SC 09/26/25 20:59 5,000 unit BID QUINN Administration Lactated Ringer's 1,000 mls @ 125 mls/hr 09/13/25 08:08 09/13/25 11:45 Lactated Ringers IV 09/13/25 16:07 0 mls/hr .Q8H QUINN Infusion Insulin Human Lispro 0 unit 09/12/25 18:55 09/13/25 11:44 Insulin Lispro (Admelog) 1 Unit/0.01 Ml Unit SC 10/12/25 18:54 Not Given AC QUINN Protocol Latanoprost 0 drop 09/12/25 18:30 09/13/25 08:44 Latanoprost Op Aleida 0.005% 2.5 Ml Btl BOTH EYES 10/12/25 18:29 1 drop QDAY QUINN Administration Meclizine HCl 25 mg 09/12/25 17:46 Meclizine Hcl 25 Mg Tablet PO 10/12/25 17:45 TID PRN Dizziness Melatonin 3 mg 09/12/25 21:00 09/12/25 20:58 Melatonin 3 Mg Tablet PO 10/12/25 20:59 3 mg HS QUINN Administration Ondansetron HCl 4 mg 09/12/25 17:40 Ondansetron Inj 2 Mg/Ml Inj 2 Ml IVP 10/12/25 17:39 Q6H PRN NAUSEA OR VOMITING Protocol Pantoprazole Sodium 40 mg 09/13/25 09:00 09/13/25 08:18 Pantoprazole 40 Mg Tablet PO 10/13/25 08:59 40 mg QDAY QUINN Administration Fluticasone/Salmeterol 1 puff 09/12/25 18:26 09/13/25 07:48 Fluticasone/Salmeterol 250/50 14 Dose Inh INH 10/12/25 18:59 1 puff BIDRT PRN Administration Shortness of Breath Sennosides 1 tab 09/13/25 09:00 09/13/25 08:18 Senna Tablet PO 10/13/25 08:59 1 tab QDAY QUINN Administration Protocol Plan Patient is a 79-year-old F with a PMH of diabetes, hyperlipidemia, coronary artery disease s/p angioplasty, pancreatitis, and hiatal hernia who presented on 09/12/2025 with a chief complaint of dizziness/lightheadedness and admitted for stroke work-up. #Stroke-like symptoms Patient initially presented with dizziness/lightheadedness with difficulty ambulating that worsens after she gets up quickly but gets better after about 2- 3 minutes after she has laid back down (though not complete resolution) Head CT negative Head/neck CT negative Although the decision was made to place patient on stroke rule out protocol, it is more than likely patient's current symptoms can be attributed to orthostatic hypotension (possibly in the setting of hypoglycemia) which is supported by the lack of residual neurologic deficits and self-resolution of symptoms once sitting or supine again. Initial NIHSS score of 0, not a TNK candidate Dx: -Ordered head MRI, results pending -Ordered echocardiogram with bubble study, results pending -Ordered orthostatic vitals, results pending -Ordered lipid panel, results WNL -Ordered TSH, results WNL Rx: -PO atorvastatin 40 mg qHS -PO aspirin 81 mg qD -PO acetaminophen 650 mg prn for T > 100.3 -Meclizine 25 mg PO TID prn (with x 1 dose given) -Neuro checks Q4HR -Ordered PT referral -Ordered speech evaluation referral -Neurology consulted, appreciate recommendations #Hypotension #??Orthostatic syncopal symptoms 09/13 admission BP 126/70 Thought to be related to patient's polypharmacy Rx: -1 L LR bolus and LR maintenance fluid at 125 cc/hr -Holding patient's home regimen of medications that may be contributing to dizziness, including baclofen and gabapentin #T2DM On home insulin Dx: -Hemoglobin A1c ordered, 7.2 Rx: -ISS w/ hypoglycemic protocol #Constipation Rx: -Colace 250 mg PO BID -Senna 1 tab PO QD Hospital Management: Disposition: Observation, anticipate discharge tomorrow if stroke work-up returns negative Diet: Carbohydrate Consistent GI Prophylaxis: Protonix Bowel Prophylaxis: Colace and Senna DVT Prophylaxis: Heparin CODE STATUS: Full Code I have examined the patient and conferred with my attending, Dr. Castle, and my senior resident, Dr. Mayer, regarding them. Davis Mejía, DO PGY-1 Internal Medicine
--- NOTE | 2025-09-13 15:40 | PC.PT ---
Patient is safe to ambulate to the bathroom and short distances in the halls with a FWW and 1 staff assist. RN made aware.
[2025-09-13] MEDS: ATORVASTATIN CALCIUM 20 MG TABLET 40 MG PO (20:53)
[2025-09-13] MEDS: MELATONIN 3 MG TABLET PO (20:53)
[2025-09-14] VITALS: BP 107/67; PULSE 68; PULSE 70; RESP 18; TEMP 36.1; O2SAT 97
--- NOTE | 2025-09-14 | XR_ITS ---
Examinations: MRI Brain without intravenous contrast. MRI brain with intravenous contrast MRA brain with intravenous contrast. MRA brain without intravenous contrast MRA neck with intravenous contrast Date and time of exam: September 14, 2025, 0941 hours INDICATIONS: Stroke alert September 12, 2025, onset focal neurologic deficit Technique: Multiple axial and sagittal images of the brain have been obtained Siemens high-resolution 1.5 [place] short bore scanner is utilized. Sagittal sections, T1-weighted, TR 500, TE 14 Axial sections proton density and T2-weighted, TR 3,000, TE 34, TR 3,000, TE 91 Inversion recovery axial images, TR 9,260, TE 111, TI 2,500 Diffusion weighted images, axial sections, TR 4,800, TE 128, B value 1,000 Axial sections, ADC map, TR 4,800, TE 128. Contrast images have been obtained post intravenous 19 cc Gadolinium. T1-weighted axial and coronal images post contrast have been obtained. Angiographic images of neck and brain are obtained pre and post contrast. 3-D post processing performed, including brain, extracranial neck arterial maximum intensity projections Findings: Sellaturcica is not enlarged. The optic chiasm and infundibular stalk are not remarkable. Prepontine and interpeduncular cisterns are not enlarged. No localized enlargement of the medulla or kathi. Fourth ventricle and cerebellar tonsils normal in position. Subacute hemorrhage is not seen. Fourth ventricle is midline. Mass in the cerebellopontine angle region is not evident. 7th and 8th nerve complexes exhibits symmetry. Globes are symmetrical with no retro-orbital mass. Increased white matter signal mild Diffusion-weighted images demonstrate no focus of restricted diffusion. Mass-effect upon the ventricular system is not identified. Abnormal contrast enhancement is not seen. MRA brain carotid images no significant carotid stenoses, no cerebral large vessel arterial occlusions Impression: Negative for acute hemorrhage, mass effect or midline shift No acute infarct Mild chronic microvascular white matter change. No significant carotid stenoses No cerebral large vessel arterial occlusions or thrombus
[2025-09-14 04:00] VITALS: BP 102/56; PULSE 65; PULSE 82; RESP 12; TEMP 36.3; O2SAT 95
[2025-09-14 05:17] VITALS: BMI 25.0
[2025-09-14 06:11] LABS: Basophils # (Auto) 0.0 Thou/mm3 (0.0-0.2); Basophils % (Auto) 1 % (0-2.5); Eosinophils # (Auto) 0.2 Thou/mm3 (0.0-0.5); Eosinophils % (Auto) 3 % (0-10); Hematocrit 35.6 % (36.0-46.0); Hemoglobin 12.0 g/dL (12.0-16.0); Immature Granulocytes Auto 0.02 Thou/mm3 (0.00-0.00); Lymphocytes # (Auto) 1.3 Thou/mm3 (1.0-4.8); Lymphocytes % (Auto) 21 % (10-50); Mean Corpuscular HGB Conc 33.7 g/dl (31.0-37.0); Mean Corpuscular Hemoglobin 30.7 pg (25.0-35.0); Mean Corpuscular Volume 91 fL (80-100); Monocytes # (Auto) 0.6 Thou/mm3 (0.0-0.8); Monocytes % (Auto) 10 % (0-12); Neutrophils # (Auto) 4.0 Thou/mm3 (1.8-7.7); Neutrophils % (Auto) 66 % (37-80); Nucleated Red Blood Cell # 0.00 Thou/mm3 (0.00-0.00); Nucleated Red Blood Cell % 0 /100 WBC (0); Platelet Count 134 Thou/mm3 (140-440); RDW Standard Deviation 41.1 fL (36.4-46.3); Red Blood Count 3.91 Miln/mm3 (4.00-5.20); White Blood Count 6.1 Thou/mm3 (3.6-11.0)
[2025-09-14 06:42] LABS: Alanine Aminotransferase 35 U/L (10-49); Albumin, Serum 3.5 gm/dL (3.4-4.8); Albumin/Globulin Ratio 1.7 (1.2-2.2); Alkaline Phosphatase 99 U/L (46-116); Anion Gap 13 (7-16); Aspartate Amino Transferase 38 U/L (0-34); BUN/Creatinine Ratio 27 Ratio (12-20); Bilirubin,Total 0.8 mg/dL (0.3-1.2); Blood Urea Nitrogen 16 mg/dL (9-23); Calcium 8.4 mg/dL (8.3-10.6); Calcium (Corrected) 8.8 mg/dL (8.5-10.1); Carbon Dioxide 26.5 mMol/L (20.0-31.0); Chloride 107 mMol/L (98-107); Creatinine (Component) 0.6 mg/dL (0.6-1.3); Estimated Creatinine Clearance 60.0 mL/min (>60); Globulin 2.1 gm/dL (2.3-3.5); Glucose 122 mg/dL (74-106); Magnesium 1.8 mg/dL (1.6-2.6); Osmolality,Calculated 292 (275-295); Phosphorous 3.5 mg/dL (2.4-5.1); Potassium 4.5 mMol/L (3.4-5.1); Sodium 146 mMol/L (136-145); Total Protein 5.6 gm/dL (5.7-8.2); eGFR > 60 See Note
[2025-09-14 08:00] VITALS: BP 112/59; PULSE 60; RESP 16; TEMP 36.3; O2SAT 94
[2025-09-14] MEDS: ASPIRIN EC 81 MG TABEC PO (08:59)
[2025-09-14] MEDS: DOCUSATE SOD 250 MG CAPSULE PO (08:59)
[2025-09-14] MEDS: HEPARIN SOD INJ 5000 UNIT/ML VIAL SC (08:59)
[2025-09-14] MEDS: PANTOPRAZOLE 40 MG TABLET PO (08:59)
--- NOTE | 2025-09-14 09:23 | PC.SS ---
The diagnosis creates mobility limitation that significantly impairs ability to participate in the patient's activities of daily living either in their entirety, or in a reasonable time frame. Also, the patient is able to safely use the walker and the patient?s mobility is sufficiently resolved with the use of the walker and a cane has been ruled out.
--- NOTE | 2025-09-14 10:02 | PC.SS ---
DME Wheelchair referral submitted via [employer] to [facility], [facility], [employer], [employer], and [employer] companies. Pending acceptance.
[2025-09-14] MEDS: LATANOPROST OP SOL 0.005% 2.5 ML BTL BOTH EYES (10:49)
[2025-09-14 12:00] VITALS: BP 104/50; PULSE 68; PULSE 72; RESP 16; TEMP 36.3; O2SAT 97
[2025-09-14] MEDS: INSULIN LISPRO (AdmeLOG) 1 UNIT/0.01 ML UNIT SC (12:14)
[2025-09-14 15:35] VITALS: BP 105/48; BP 92/60; BP 97/54; PULSE 63; PULSE 69; PULSE 71
--- NOTE | 2025-09-14 15:51 | PC.SS ---
Provided patient with [facility] contact info for FWW follow up. Patient also confirmed she will be contacting Dr. Batista to obtain a referral for outpatient PT with [facility] ROBOSN dan.
[2025-09-14 16:00] VITALS: BP 97/54; PULSE 68; PULSE 71; RESP 18; TEMP 36.4; O2SAT 97
--- NOTE | 2025-09-14 16:16 | ESDS_ITS ---
<Statement entered by Loni Castle MD - 09/17/25 08:04> I reviewed above note and agree with findings and plans. I have also personally examined the patient with medicine team and went over assessment and plan with medical team including international student advisor and resident physician. <Statement entered by Akira Morris MD - 09/15/25 16:07> Patient was seen and examined at bedside. I agree in the assessment and plan on this note. - Patient's plan and care discussed with my attending, Dr. Corrine Morris MD Internal Medicine PGY-3 Planned Discharge Date 09/14/25 DS: Providers Provider Date of admission: 09/12/25 17:40 Primary care physician: Physician No Primary/Family Admitting Provider: Loni Castle MD Attending Provider on Admission: Loni Castle MD Consults: 09/12/25 14:25 Consult to Neurology / Tele-Neurology Routine Comment: Consulting Provider: [facility] 09/12/25 17:43 Consult to Neurology / Tele-Neurology Routine Comment: Consulting Provider: Quentin Darby 09/12/25 17:44 Referral Physical Therapy Routine Comment: Physician Instructions: 09/12/25 18:28 Referral Speech Therapy Routine Comment: Attending Provider on DC: Sina Mckeon DO Discharging Provider: Dorie Gonzalez DO DS: Diagnosis Problem List Completed Was Problem List Reviewed/Reconciled?: Yes Hospital Course Hospital Course Hospital course: Reason for hospitalization: Patient is a 79-year-old F with a PMH of diabetes, hyperlipidemia, coronary artery disease s/p angioplasty, pancreatitis, and hiatal hernia who presented on 09/12/2025 with a chief complaint of dizziness/lightheadedness and admitted for stroke work-up. Head CT negative Head/neck CT negative. MRI was negative for acute infarct but showed mild chronic microvascular white matter changes. Echo showed EF 60-65% with grade I diastolic dysfunction but negative for PFO. Orthostatic vitals were negative. Lipid panel and TSH were within normal limits. Suspect likely secondary to polypharmacy as home meds included Lasix (may have attributed to lightheadedness), baclofen, and loratidine. Patient returned to baseline shortly after admission. Recommended patient to hold these medications upon discharge. Started on atorvastatin 40 mg daily and ASA 81 mg daily to possible TIA. Instructed patient to follow up with PCP within 1 week. Patient was medically stable upon discharge. Discharge Recommendations: - START atorvastatin 40 mg daily for cholesterol - HOLD Lasix, baclofen, and loratidine until you follow up with your PCP - Continue all other medications including gabapentin - Follow up with PCP within 1 week of discharge - Return to ED if symptoms worsen Hospital Diagnoses: #Stroke-like symptoms #Hypotension #T2DM #Constipation Disposition: Safe disposition to home with PT Patient plan of care was discussed with the senior resident, Dr. Morris, and the attending physician, Dr. Mckeon. Dorie Gonzalez DO, PGY-1 Time Spent with Patient Time attestation: Total time spent providing and/or coordinating discharge services: Time spent: Greater than 30 minutes Exam Vital Signs Temp Pulse Resp BP Pulse Ox O2 Del Method 97.4 F 63 16 92/60 97 Room Air 09/14/25 12:00 09/14/25 15:35 09/14/25 12:00 09/14/25 15:35 09/14/25 12:00 09/14/25 12:00 Narrative Exam General: Alert, no acute distress. Skin: Warm, dry, intact, no obvious rash. Head: Normocephalic, atraumatic. Eye: Normal conjunctiva, PERRL. Throat: Oral mucosa moist. Cardiovascular: Regular rate and rhythm, no murmur, normal peripheral perfusion, no edema. Respiratory: Lungs are clear to auscultation, respirations non labored, no crackles, no wheezing. Gastrointestinal: Soft, nontender, non-distended. Psychiatric: Cooperative, appropriate affect. Neuro: Mental status: Alert, oriented, appropriately responding to commands. Speech/Language: Speech fluent, no word finding difficulty or paraphasic errors observed. Language-comprehension, repetition and naming intact. No dysarthria n oted. Memory: Grossly recent and remote intact. Cranial Nerves: II: No visual deficits and visual [place] full to confrontation. Pupils 3-5 mm size BL round, reactive to light. III, IV, : EOMI, no nystagmus, no ptosis, no APD, smooth pursuit without saccadic intrusion, conjugate horizontal gaze intact. V: Gross sensation intact in V1, V2 and V3 distribution to crude touch. Jaw strength normal. VII: No facial asymmetry, able to smile symmetrically and BL good eye closure. VIII: Hearing intact in both ears per finger rubbing. IX, X: Symmetrical palate elevation, uvula in midline. XI: Symmetrical head rotation and shoulder shrug. IX, XII: Midline tongue protrusion. No fasciculations or atrophy noted. Sensory examination Crude touch in bilateral upper and lower extremity grossly intact. Motor examination No drift in bilateral upper extremity 4/5 strength in bilateral upper extremity 4/5 strength in bilateral lower extremity Coordination [id number] test performed without any difficulty. No dysmetria. Discharge Plan Plan Patient Disposition: HOME (Self Care) Patient condition on transfer: Stable and Benefits outweigh risks Care Plan Goals: Discharge instructions: - START atorvastatin 40 mg daily for cholesterol - HOLD Lasix, baclofen, and loratidine until you follow up with your PCP - Continue all other medications including gabapentin - Follow up with PCP within 1 week of discharge - Return to ED if symptoms worsen Prescriptions/Referrals Prescriptions/Med Rec: New atorvastatin [Lipitor] 40 mg tablet 40 mg PO QPM 14 Days Qty: 14 0RF Continued gabapentin 100 MG capsule 100 mg PO DAILY Qty: 0 clopidogrel 75 mg Tablet 75 mg PO QDAY duloxetine 20 mg Capsule,Delayed Release(Dr/Ec) 20 mg PO QDAY docusate sodium 250 mg Capsule 250 mg PO BID PRN (Reason: constipation) alendronate 35 mg tablet 35 mg PO QWEEK Patient Comments: TAKE 1 TABLET BY MOUTH ONCE A WEEK IN THE MORNING AT LEAST 30MIN BEFORE FIRST MEAL,DRINK OR MED Rx Instructions: wednesday fluticasone propionate 50 mcg/actuation spray,suspension 2 spray INTRANASAL QAM Patient Comments: SPRAY 2 SPRAYS INTO EACH NOSTRIL EVERY DAY triamcinolone acetonide 0.1 % cream 1 applic TOPICAL BID lidocaine 5 % adhesive patch,medicated 1 patch TOPICAL QDAY PRN (Reason: pain (scale score 7-10)) Patient Comments: APPLY 1 PATCH BY TOPICAL ROUTE ONCE DAILY (MAY WEAR UP TO 12HOURS.) hydroxyzine HCl 10 mg tablet 10 mg PO Q8H PRN (Reason: itching) Patient Comments: TAKE 1 TABLET BY MOUTH EVERY 8 HOURS NEEDED FOR ITCHING ondansetron 4 mg tablet,disintegrating 4 mg PO TID PRN (Reason: nausea and vomiting) Qty: 14 0RF ezetimibe [Zetia] 10 mg Tablet 10 mg PO DAILY lactulose 10 gram/15 mL (15 mL) solution 10 g PO QDAY PRN (Reason: constipation) Qty: 600 0RF famotidine [Pepcid] 20 mg tablet 20 mg PO BID Qty: 30 0RF acetaminophen [Tylenol Extra Strength] 500 mg tablet 500 mg PO Q6H PRN (Reason: pain) Qty: 30 0RF Held furosemide [Lasix] 20 mg tablet 20 mg PO Q OTHER DAY Qty: 7 0RF Hold Instructions: Resume on 09/20/25. To Be Resumed By PCP loratadine 10 mg Tablet 10 mg PO QAM Hold Instructions: Resume on 09/20/25. To be resumed by PCP if needed baclofen 10 mg tablet 10 mg PO HS Hold Instructions: Resume on 09/21/25. To be resumed by PCP Patient Comments: TAKE 1 TABLET BY MOUTH EVERY DAY AT BEDTIME NEEDED FOR MUSCLE SPASMS Discontinued duloxetine 20 mg capsule,delayed release(DR/EC) 20 mg PO QDAY Linzess 145 mcg capsule 145 mcg PO QDAY ciprofloxacin HCl 500 mg tablet 500 mg PO BID Qty: 20 0RF azithromycin 500 mg tablet See Rx Instructions .ROUTE .COMPLEX Qty: 3 0RF Rx Instructions: For 500 mg dose pack: take 500 mg once daily for 3 days cefuroxime axetil 500 mg tablet 500 mg PO BID Qty: 14 0RF Paxlovid 150-100 mg tablets,dose pack See Rx Instructions .ROUTE .COMPLEX Qty: 20 0RF Rx Instructions: take ONE 150 mg tablet of nirmatrelvir with ONE 100 mg tablet of ritonavir twice daily for 5 days ibuprofen 600 mg tablet 600 mg PO Q8H PRN (Reason: fever or pain) Qty: 30 0RF sulfamethoxazole-trimethoprim [Bactrim DS] 800-160 mg tablet 1 tab PO Q12H Qty: 10 0RF polyethylene glycol 3350 [GentleLax] 17 gram/dose powder 4 g PO QDAY Qty: 238 0RF famotidine [Pepcid] 20 mg tablet 20 mg PO QDAY Qty: 30 0RF benzonatate 100 mg capsule 100 mg PO BID PRN (Reason: cough) Qty: 20 0RF ondansetron 4 mg tablet,disintegrating 4 mg PO Q6H PRN (Reason: nausea and vomiting) Qty: 20 0RF potassium chloride 20 mEq packet 20 meq PO EVERYOTHERDAY Referrals: No Primary/Family,Physician [Primary Care Provider] Patient/Caregiver Discharge Instructions Discharge Activity: as per physical therapy Education Materials: Dizziness Balance Probs Fainting, Inner Ear Balance, Orthostatic Hypotension Print Language: Niuean Stand Alone Forms: [facility] Award Info., Patient Portal Info Letter, Work/Release Restrictions Discharge Order Discharge Orders: Discharge (Routine); Ordered 09/14/25 Ordered By: Dorie Gonzalez Quality Discharge Quality Measures VTE prophylaxis
== END 2025-09-14 16:26 | disposition home or self-care (01) ==
LOC: SERX 17:51 → S2NX 22:54 → SERHOLD 09-18 13:36 → S2NX 09-18 13:37
PROVIDERS: Student in an Organized Health Care Education/Training Program; Admitting Provider Internal Medicine; Emergency Provider Family Medicine; Visit Provider Internal Medicine
DX: R42 Dizziness and giddiness (principal); I95.9 Hypotension, unspecified; E11.9 Type 2 diabetes mellitus without complications; K59.00 Constipation, unspecified; E78.5 Hyperlipidemia, unspecified; I25.10 Atherosclerotic heart disease of native coronary artery without angina pectoris
CPT/HCPCS: 36415; 70450; 70496; 70498; 70553; 80053; 80061; 80307; 80320; 81001; 83036; 83735; 83880; 84100; 84443; 84484; 85025; 85610; 85730; 87086; 92610; 93005; 93306; 94640; 96360; 96361; 96372; 96374; 97162; 99285; A4649; G0378; J1644; J1815; J3490; J7030; J7120; Q9963; Q9967; A9270; G0480